=== PATIENT | male | born 1970 | race Caucasian/White ===

== ENCOUNTER 2016-12-17 08:11 | Inpatient (IN) | payer MEDICAID ==
[~2016-12-17] VITALS: Ht 174 cm; Wt 124.1 kg
[~2016-12-17 08:11] MED LIST: ASPIRIN325 MG PO; CARDIZEM60 MG PO; CELEXA20 MG PO; HYDRALAZINE HCL25 MG PO; K-DUR20 MEQ PO; LASIX40 MG PO; LASIX80 MG PO; LISINOPRIL-HCTZ1 T13 PO; LISINOPRIL5 MG PO; MAG-OX 400 MG400 MG PO; METOPROLOL TART50 MG PO; MULTAQ400 MG PO; SLOW-MAG 64 MG64 MG OR; XARELTO15 MG PO
[2016-12-17 08:58] LABS: BASOPHILS 0.4 % (0.0-2.0); EOSINOPHILS 2.2 % (0-7); HEMOGLOBIN 8.9 g/dL (13.5-17.5); IMMATURE GRANULOCYTES 0.1 % (0-5); LYMPHOCYTES 16.9 % (15-50); MCHC 28.7 g/dL (31.0-37.0); MCV 73.1 fL (80.0-100.0); MEAN PLATELET VOLUME 8.2 fL (7.4-10.4); MONOCYTES 10.5 % (2-11); NEUTROPHILS 69.9 % (40-80); PLATELET COUNT 243 10x3/uL (130-400); RBC 4.24 10x6/uL (4.20-6.10); RDW 18.4 % (11.5-14.5); WBC 7.2 10x3/uL (4.8-10.8)
[2016-12-17 09:12] LABS: ALBUMIN 2.6 g/dL (3.4-5.0); ANION GAP 16.2 mmol/L (8-16); BILIRUBIN - TOTAL 0.81 mg/dL (0.2-1.3); CALCIUM 8.5 mg/dL (8.5-10.1); CARBON DIOXIDE 26.2 mmol/L (21.0-32.0); CREATININE - SERUM 2.6 mg/dL (0.6-1.3); POTASSIUM - SERUM 4.4 mmol/L (3.5-5.1); PROTEIN - SERUM 7.3 g/dL (6.4-8.2)
[2016-12-17 09:21] LABS: TROPONIN-I 0.046 ng/mL (0.000-0.060)
[2016-12-17 10:44] LABS: UDS - AMPHET NEGATIVE QUAL (NEGATIVE); UDS - BARB NEGATIVE QUAL (NEGATIVE); UDS - BENZO NEGATIVE QUAL (NEGATIVE); UDS - COCAINE NEGATIVE QUAL (NEGATIVE); UDS - METH NEGATIVE QUAL (NEGATIVE); UDS - OPIATE NEGATIVE QUAL (NEGATIVE); UDS - PCP NEGATIVE QUAL (NEGATIVE); UDS - THC NEGATIVE QUAL (NEGATIVE)
--- NOTE | 2016-12-17 11:40 | NUR ---
RECEIVED PT TO ROOM 2127 VIA STRETCHER TRANSFERED TO BED TOLERATED WELL CARDIZEM GTT PATENT RT ARM AT 5 ML/HR WITHOUT DIFFICULTY F/C PATENTCLEAR RICHIE URINE
[2016-12-17 12:10] VITALS: BP 156/92
[2016-12-17] MEDS ORDERED: LIPITOR80 MG PO (12:45)
[2016-12-17] MEDS ORDERED: METOPROLOL TART50 MG PO (12:46)
[2016-12-17 15:49] VITALS: BP 153/102
[2016-12-17 15:54] VITALS: BP 156/92; BMI 42.0
[2016-12-17 17:45] LABS: CKMB 2.8 U/L (0.0-3.6); CREATINE KINASE 50 UL (21-232); TROPONIN-I 0.048 ng/mL (0.000-0.060)
[2016-12-17 20:00] VITALS: BP 156/85
[2016-12-17 21:17] LABS: CKMB 2.5 U/L (0.0-3.6); CREATINE KINASE 46 UL (21-232); TROPONIN-I 0.045 ng/mL (0.000-0.060)
[2016-12-18] VITALS: BP 131/76
--- NOTE | 2016-12-18 00:03 | NUR ---
IN BED LYING ON LEFT SIDE WITH EYES CLOSED, RESP UNLAB WITH O2 @ 2L VIA NC IN PLACE, TELEMETRY SHOWING HR ATRIAL FIB PER MONITOR. CARDIZEM GTT AT 5CC/HR VIA PUMP TO RT FA WITH NO R/S NOTED AT SITE. MIRANDA CATH INTACT AND PATENT WITH YELLOW URINE NOTED IN BAG, EMPTIED PRN.VOICES NO C/O PAIN OR DISCOMFORT AT THIS TIME. CONTINUE TO MONITOR.
--- NOTE | 2016-12-18 00:08 | NUR ---
SITTING UP ON SIDE OF BED.GOWN, O2 OFF AND IVALMOST PULLED OUT. ASSIST WITH GETTING READY TO GET BACK INTO BED. COCO WELL. HOB UP SR UP X2, C/L IN REACH. CONTINUE TO MONITOR,
[2016-12-18 04:00] VITALS: BP 160/84
[2016-12-18 04:45] LABS: BASOPHILS 0.6 % (0.0-2.0); EOSINOPHILS 2.9 % (0-7); HEMATOCRIT 30.5 % (42.0-54.0); HEMOGLOBIN 8.7 g/dL (13.5-17.5); IMMATURE GRANULOCYTES 0.2 % (0-5); LYMPHOCYTES 18.8 % (15-50); MCHC 28.5 g/dL (31.0-37.0); MCV 73.5 fL (80.0-100.0); MEAN PLATELET VOLUME 8.2 fL (7.4-10.4); MONOCYTES 10.7 % (2-11); NEUTROPHILS 66.8 % (40-80); PLATELET COUNT 246 10x3/uL (130-400); RBC 4.15 10x6/uL (4.20-6.10); RDW 18.5 % (11.5-14.5); WBC 6.6 10x3/uL (4.8-10.8)
[2016-12-18 05:24] LABS: CALC OSMOLALITY 298 mosm/kg (275-300); CALCIUM 8.4 mg/dL (8.5-10.1); CARBON DIOXIDE 29.5 mmol/L (21.0-32.0); CHLORIDE - SERUM 106 mmol/L (98-107); CKMB 1.9 U/L (0.0-3.6); CREATINE KINASE 44 UL (21-232); CREATININE - SERUM 2.7 mg/dL (0.6-1.3); GLUCOSE 154 mg/dL (74-106); MAGNESIUM - SERUM 1.7 mg/dL (1.8-2.4); PHOSPHOROUS 4.8 mg/dL (2.5-4.9); POTASSIUM - SERUM 4.2 mmol/L (3.5-5.1); SODIUM 143 mmol/L (136-145); TROPONIN-I 0.045 ng/mL (0.000-0.060); UREA NITROGEN 43 mg/dL (7-18); eGFR NON AFRICAN AMERICAN 27 mL/min (90-120)
--- NOTE | 2016-12-18 07:30 | NUR ---
RESTING QUIETLY EYES CLOSED RESP UNLABORED NAD NOTED
--- NOTE | 2016-12-18 08:08 | NUR ---
ASSESSMENT COMPLETED. TELEMERTY SHOWS CAF AT 82. O2 AT 3 L/M PER NC. MIRANDA TO BEDSIDE GRAVITY BAG. RIGHT ARM WITH IV OF CARDIZEM AT 5. DENIES ANY NEEDS. CALL LIGHT IN REACH WITH SR UP. WILL MONITOR
[2016-12-18 08:58] VITALS: BP 132/82
[2016-12-18 11:00] VITALS: Ht 174 cm; Wt 124.1 kg
[2016-12-18 13:16] VITALS: BP 143/77
[2016-12-18 17:21] VITALS: BP 148/80
--- NOTE | 2016-12-18 17:58 | NUR ---
LYING QUIETLY WITH EYES CLOSED . RESP REG AND NO LABORED. WILL MONITOR
--- NOTE | 2016-12-18 19:30 | NUR ---
ASSESSMENT COMPLETE, AROUSES EASILY, VOICES NO C/O PAIN OR DISCOMFORT AT THIS TIME.CARDIZEM INFUSING W/O DIFF VIA PUMP @ 10CC/HR TO RT HAND/WRISTIV SITE.RESP UNLAB WITH O2 @ 3L VIA NC IN USE. TELEMETRY IN PLACE, SHOWING HR CAFIB PER MONITOR, MIRANDA INTACT AND PATENT WITH YELLOW URINE NOTED IN BAG. EMPTIED PRN. CONTINUE TO MONITOR.
[2016-12-18 20:00] VITALS: BP 151/93
--- NOTE | 2016-12-19 03:28 | NUR ---
EYES CLOSED, RESP UNLAB WITH NO S/S OF ACUTE DISTRESS NOTED. C/L IN REACH. CONTINUE TO MONITOR.
[2016-12-19 04:00] VITALS: BP 143/77
[2016-12-19 05:55] LABS: BASOPHILS 0.4 % (0.0-2.0); EOSINOPHILS 2.7 % (0-7); HEMATOCRIT 31.5 % (42.0-54.0); HEMOGLOBIN 8.7 g/dL (13.5-17.5); IMMATURE GRANULOCYTES 0.3 % (0-5); LYMPHOCYTES 20.5 % (15-50); MCH 20.3 pg (26.0-34.0); MCHC 27.6 g/dL (31.0-37.0); MCV 73.4 fL (80.0-100.0); MEAN PLATELET VOLUME 8.5 fL (7.4-10.4); MONOCYTES 10.4 % (2-11); NEUTROPHILS 65.7 % (40-80); PLATELET COUNT 239 10x3/uL (130-400); RBC 4.29 10x6/uL (4.20-6.10); RDW 18.3 % (11.5-14.5); WBC 7.5 10x3/uL (4.8-10.8)
[2016-12-19 06:23] LABS: ANION GAP 10.3 mmol/L (8-16); CARBON DIOXIDE 31.5 mmol/L (21.0-32.0); CREATININE - SERUM 2.4 mg/dL (0.6-1.3); MAGNESIUM - SERUM 1.7 mg/dL (1.8-2.4); PHOSPHOROUS 4.8 mg/dL (2.5-4.9); POTASSIUM - SERUM 3.8 mmol/L (3.5-5.1)
--- NOTE | 2016-12-19 06:45 | NUR ---
RECEIVED PT REPORT. NO CO PAIN AT THIS TIME. WILL CONTINUE PLAN OF CARE. NO OTHER NEEDS.
--- NOTE | 2016-12-19 07:48 | NUR ---
PT IS ALERT. ASSESSMENT DONE PER FLOWSHEET. NO OTHER NEEDS AT THIS TIME. WILL CONTINUE TO MONITOR
[2016-12-19 08:00] VITALS: BP 139/78
[2016-12-19 12:00] VITALS: BP 104/67
[2016-12-19 15:59] VITALS: BP 123/81
[2016-12-19 20:27] VITALS: BP 118/68
--- NOTE | 2016-12-19 21:53 | NUR ---
INITIAL ROUNDS COMPLETED AT 1915 HRS. PT DENIED ANY DISCOMFORT. ASSESSMENT COMPLETED AT 1940 HRS. VSS. CAF PER CM HR 71. IV TO RFA WITH CARDIZEM AT 10MG/HR ( 10CC/HR). IV PATENT. O2 3LNC. LUNGS DIMINISHED IN BASES BILAT. LARGE ABD HERNIA NOTED. TRACE PEDAL EDEMA. PM MEDS GIVEN PER ORDERS. PT CURRENTLY RESTING WITH EYES CLOSED. RESP EVEN AND REGULAR. SR UP X2, CALL LIGHT WITHIN REACH. REFUSES SCD'S. MIRANDA DRAINING YELLOW URINE.
--- NOTE | 2016-12-19 23:59 | NUR ---
PT RESTING WITH EYES CLOSED. RESP EVEN AND REGULAR. SR UP X2, CALL LIGHT WITHIN REACH.
[2016-12-20 00:04] VITALS: BP 107/63
--- NOTE | 2016-12-20 01:49 | NUR ---
PT RESTING WITH EYES CLOSED. RESP EVEN AND REGULAR. SR UP X2, CALL LIGHT WITHIN REACH.
--- NOTE | 2016-12-20 04:38 | NUR ---
PT RSETING WITH EYES CLOSED. RESP EVEN AND REGULAR. SR UP X2, CALL LIGHT WITHIN REACH.
[2016-12-20 04:39] VITALS: BP 111/70
--- NOTE | 2016-12-20 06:44 | NUR ---
VSS THROUGHOUT NIGHT. CAF PER CM. PT STATED HE SLEPT WELL DURING THE NIGHT. NEEDS MET;WILL CONTINUE TO MONITOR.
[2016-12-20 07:45] LABS: BASOPHILS 0.2 % (0.0-2.0); EOSINOPHILS 1.6 % (0-7); HEMATOCRIT 28.5 % (42.0-54.0); HEMOGLOBIN 8.2 g/dL (13.5-17.5); IMMATURE GRANULOCYTES 0.2 % (0-5); LYMPHOCYTES 16.3 % (15-50); MCH 20.9 pg (26.0-34.0); MCHC 28.8 g/dL (31.0-37.0); MCV 72.7 fL (80.0-100.0); MEAN PLATELET VOLUME 8.6 fL (7.4-10.4); NEUTROPHILS 70.7 % (40-80); PLATELET COUNT 226 10x3/uL (130-400); RBC 3.92 10x6/uL (4.20-6.10); RDW 18.4 % (11.5-14.5); WBC 8.9 10x3/uL (4.8-10.8)
[2016-12-20 08:00] VITALS: BP 115/74
[2016-12-20 08:19] LABS: ANION GAP 12.1 mmol/L (8-16); CALCIUM 8.1 mg/dL (8.5-10.1); CARBON DIOXIDE 28.7 mmol/L (21.0-32.0); CREATININE - SERUM 2.6 mg/dL (0.6-1.3); MAGNESIUM - SERUM 1.7 mg/dL (1.8-2.4); PHOSPHOROUS 4.9 mg/dL (2.5-4.9); POTASSIUM - SERUM 3.8 mmol/L (3.5-5.1)
[2016-12-20 11:25] VITALS: BP 112/53
--- NOTE | 2016-12-20 14:00 | NUR ---
ALERT AND ORIENTED X4. RESTING IN BED. INITIATE MIRANDA CARE. ORANGE STICKER PLACED ON MIRANDA BAG. READY TO GET MIRANDA OUT. PLAN TO TALK TO DOCTOR TOMORROW FOR MIRANDA DC. DENIES SOB OR PAIN. CONTINUE PLAN OF CARE AND SAFETY PRECAUTIONS. CONTROLLED AFIB 64bpm ON TELEMETRY.
--- NOTE | 2016-12-20 15:47 | NUR ---
ALERT AND ORIENTED X4. RESTING IN BED. BP-102/68. HR-60 CONTROLLED A-FIB ON TELEMETRY. 18 BEAT RUN OF V-TACH. ASYMPTOMATIC. NOTIFY . CARDIZEM PO 240mg DAILY ORDERED. GIVE ONE DOSE NOW PER AND 2HRS STOP CARDIZEM DRIP PER ORDER VIA TELEPHONE. CONTINUE PLAN OF CARE. BED LOCKED AND LOW. CALL LIGHT IN REACH. TWO SIDERAILS UP.
[2016-12-20 15:50] VITALS: BP 99/68
--- NOTE | 2016-12-20 18:00 | NUR ---
ALERT AND ORIENTED X4. RESTING IN BED. COMPLAINS OF LEG PAIN 12/14. CONTROLLED AFIB 62bpm ON TELEMETRY. CARDIZEM DRIP STOPPED PER ORDER. DENIES SOB. CONTINUE PLAN OF CARE AND SAFETY PRECAUTIONS.
--- NOTE | 2016-12-20 20:14 | NUR ---
INITIAL ROUNDS COMPLETED AT 1920 HRS. PT RESTING WITH EYES CLOSED. RESP EVEN AND REGULAR. ASSESSMENT COMPLETED AT 2000 HRS. VSS. ACF PER CM HR 59. LARGE ABD HERNIA NOTED. IV TO RFA SL. O2 3LNC. LUNGS DIMINISHED IN BASES BILAT. GUAMAN. MIRANDA DRAINING YELLOW URINE. 1/2CM SORE NOTED TO BACK OF NECK. WILL CONTINUE TO MONITOR. SR UP X2, CALL LIGHT WITHIN REACH.
[2016-12-20 20:48] VITALS: BP 148/67
--- NOTE | 2016-12-20 22:05 | NUR ---
PT SITTING UP IN RECLINER. PM MEDS GIVEN. MIRANDA CARE DONE. WILL CONTINUE TO MONITOR. SR UP X2, CALL LIGHT WITHIN REACH.
--- NOTE | 2016-12-21 00:08 | NUR ---
PT RESTING WITH EYES CLOSED. RESP EVEN AND REGULAR. SR UP X2, CALL LIGHT WITHIN REACH.
[2016-12-21 00:30] VITALS: BP 101/57
--- NOTE | 2016-12-21 03:14 | NUR ---
PT RESTING WITH EYES CLOSED. RESP EVEN AND REGULAR. SR UP X2, CALL LIGHT WITHIN REACH.
[2016-12-21 04:30] VITALS: BP 137/88
--- NOTE | 2016-12-21 04:48 | NUR ---
PT RESTING WITH EYES CLOSED. RESP EVEN AND REGLAR. SR UP X2, CALL LIGHT WITHIN REACH.
[2016-12-21 06:33] LABS: BASOPHILS 0.5 % (0.0-2.0); EOSINOPHILS 1.5 % (0-7); HEMATOCRIT 28.6 % (42.0-54.0); HEMOGLOBIN 8.3 g/dL (13.5-17.5); IMMATURE GRANULOCYTES 0.1 % (0-5); LYMPHOCYTES 22.1 % (15-50); MCH 21.1 pg (26.0-34.0); MCV 72.8 fL (80.0-100.0); MEAN PLATELET VOLUME 8.6 fL (7.4-10.4); MONOCYTES 8.6 % (2-11); NEUTROPHILS 67.2 % (40-80); PLATELET COUNT 202 10x3/uL (130-400); RBC 3.93 10x6/uL (4.20-6.10); RDW 18.4 % (11.5-14.5); WBC 8.5 10x3/uL (4.8-10.8)
--- NOTE | 2016-12-21 06:44 | NUR ---
VSS THROUGHOUT NIGHT. CAF PER CM. PT DENIED ANY DISCOMFORT. NEEDS MET; WILL CONTINUE TO MONITOR.
[2016-12-21 06:48] LABS: ANION GAP 11.3 mmol/L (8-16); CALCIUM 8.3 mg/dL (8.5-10.1); CARBON DIOXIDE 29.9 mmol/L (21.0-32.0); MAGNESIUM - SERUM 1.9 mg/dL (1.8-2.4); PHOSPHOROUS 5.6 mg/dL (2.5-4.9); POTASSIUM - SERUM 4.2 mmol/L (3.5-5.1)
[2016-12-21 08:00] VITALS: BP 134/95
--- NOTE | 2016-12-21 10:44 | NUR ---
ALERT AND ORIENTED X4. SITTING UP ON SIDE OF BED. COMPLAINS OF WEAKNESS. SCARED TO GO TO SLEEP DUE TO FEELING SO WEAK. CONSERVATION ENFORCEMENT OFFICER STUDENT DC RUTH PER . BULB DEFLATED 9ml. BULB INTACT. 45bpm CONTROLLED A-FIB ON TELEMETRY. BP-95/48. NOTIFY DR.ST EDGE. CARDIZEM 240mg PO CHANGED TO 120mg PO DAILY PER DR.ST EDGE VIA TELEPHONE. ENCOURAGE DEEP BREATHING. CONTINUE TO MONITOR. BED LOCKED AND LOW. CALL LIGHT IN REACH. TWO SIDERAILS UP. REFUSE SCDs.
[2016-12-21 12:00] VITALS: BP 96/61
--- NOTE | 2016-12-21 12:40 | CN ---
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 He has been somewhat intermittently compliant with diet and activity level. We are asked to see him concerning his cardiovascular status. PAST MEDICAL HISTORY: Includes: 1. Hypertension. 2. Atrial fibrillation. 3. Cardiomyopathy with embolic PA. 4. Chronic renal insufficiency. 5. Chronic anemia. 6. Dyslipidemia. MEDICATIONS: Atorvastatin 80 mg p.o. daily, hydralazine 25 t.i.d., metoprolol 50 b.i.d., aspirin 81 daily, Lasix 40 b.i.d. SOCIAL HISTORY: Lives here in [place], nonsmoker, has some difficulty with his ADLs. REVIEW OF SYSTEMS: The patient reports easy bruising but reports no swollen glands. The patient reports no fever, no night sweats, no significant weight gain, no significant weight loss. No significant exercise tolerance. The patient reports no dry eyes, no irritation, no vision change. Patient reports no difficulty hearing and no ear pain. Patient reports no frequent nose bleeds or nose and sinus problems. Patient reports on arm pain on exertion. No shortness of breath while lying down. No history of heart murmur. Patient reports no cough, no wheezing or coughing up blood. Patient reports no abdominal pain, no vomiting. Normal appetite. No diarrhea and not vomiting blood. No nausea and no constipation. Patient reports no incontinence. No difficulty urinating. No hematuria. No increased frequency. Patient reports no muscle aches. No weakness, no arthralgias, no back pain. No swelling of the extremities. Patient reports no abnormal mole, no jaundice, no rashes. Reports no loss of consciousness. No weakness and no numbness. No seizures, dizziness, or headaches. The patient reports no depression, no sleep disturbance, feeling safe in a relationship and no alcohol abuse. Patient reports on fatigue. Reports no runny nose or sinus pressure. No itching, no hives, and no frequent sneezing. PHYSICAL EXAMINATION: GENERAL: Pleasant gentleman in no acute distress, appears stated age. VITAL SIGNS: Blood pressure 123/81, pulse 64 and regular. HEENT: Normocephalic, atraumatic. NECK: No bruits noted. HEART: Regular. LUNGS: Palomino diminished breath sounds bilateral. CONSULT REPORT [id number] KATYAAYLIN Starkey ABDOMEN: Soft, nontender. EXTREMITIES: 1+ edema, 1+ pulses. IMPRESSION: Exacerbation of nonischemic cardiomyopathy, [id number]-nu-[id number] systolic dysfunction. Unable to use HOLGER, ARB and Aldactone secondary to renal insufficiency, potassium 3.8. Could consider low-dose Aldactone at some point, although this would be when he is more stable. Further recommendations will be based on the above. TRANSINT:[id number] Voice Confirmation ID: [id number] DOCUMENT ID: [id number] GORAN HARRY MD at 1240 CC: [id number] DICTATION DATE: 12/19/16 1615 ASSOCIATION EXECUTIVE: 12/19/161955 ADM IN [facility] [address] [place] [address]
--- NOTE | 2016-12-21 17:31 | NUR ---
ALERT AND ORIENTED X4. OOB TO RESTROOM. BM IN FLOOR. ROOM AND LINEN CHANGED. SHOWER COMPLETE. CONTROLLED A-FIB 58bpm ON TELEMETRY. [place]. O2 @ 3L NC. DENIES PAIN. CONTINUE PLAN OF CARE AND SAFETY PRECAUTIONS.
--- NOTE | 2016-12-21 19:30 | NUR ---
UP AMBULATING IN HALLWAY, NO S/S OF ACUTE DISTRESS NOTED. NO O2 BEING USED. HR CAFIB PER MONITOR. CONTINUE TO MONITOR.
--- NOTE | 2016-12-21 20:00 | NUR ---
BACK IN BED , COCO WELL. HOB UP SR UP X2, C/L IN REACH. VOICES NO C/O PAIN AT THIS TIME. CONTINUE TO MONITOR.
--- NOTE | 2016-12-22 01:48 | NUR ---
EYES CLOSED. RESP EVEN AND UNLAB WITH NO S/S OF ACUTE DISTRESS NOTED. C/L IN REACH.
[2016-12-22 02:33] VITALS: BP 110/65
[2016-12-22 03:09] LABS: PROTEIN S - FREE 114 % (57-157); PROTEIN S - FUNCTIONAL 60 % (63-140); PROTEIN S - TOTAL 112 % (60-150)
[2016-12-22 06:06] LABS: BASOPHILS 0.4 % (0.0-2.0); EOSINOPHILS 2.1 % (0-7); HEMATOCRIT 26.8 % (42.0-54.0); IMMATURE GRANULOCYTES 0.1 % (0-5); LYMPHOCYTES 17.4 % (15-50); MCH 21.3 pg (26.0-34.0); MCHC 29.9 g/dL (31.0-37.0); MCV 71.5 fL (80.0-100.0); MONOCYTES 11.1 % (2-11); NEUTROPHILS 68.9 % (40-80); PLATELET COUNT 192 10x3/uL (130-400); RBC 3.75 10x6/uL (4.20-6.10); RDW 18.3 % (11.5-14.5)
[2016-12-22 06:37] VITALS: BP 123/69
[2016-12-22 06:46] LABS: ANION GAP 11.4 mmol/L (8-16); CALCIUM 8.2 mg/dL (8.5-10.1); CARBON DIOXIDE 29.5 mmol/L (21.0-32.0); PHOSPHOROUS 5.9 mg/dL (2.5-4.9); POTASSIUM - SERUM 3.9 mmol/L (3.5-5.1)
[2016-12-22 08:14] VITALS: BP 117/78
[2016-12-22 11:39] VITALS: BP 136/49
[2016-12-22 14:19] LABS: PROTEIN C - ANTIGEN 61 % (60-150); PROTEIN C - FUNCTIONAL 81 % (73-180)
[2016-12-22] MEDS ORDERED: CARDIZEM60 MG PO (14:30)
[2016-12-22] MEDS ORDERED: [UNRECOGNIZED DRUG - SUPPLY] (14:34)
--- NOTE | 2016-12-22 15:11 | NUR ---
ALERT AND ORIENTED X4. UP AMBULATING IN [place]. DENIES PAIN OR SOB. CONTROLLED AFIB 56bpm ON TELEMETRY. DENIES ANY NEEDS. CONTINUE PLAN OF CARE AND SAFETY PRECAUTIONS.
[2016-12-22 15:52] VITALS: BP 108/77
--- NOTE | 2016-12-22 17:27 | NUR ---
ALERT AND ORIENTED X4. WRITTEN PRESCRIPTIONS PROVIDED. PRESCRIPTIONS FOR BLOOD PRESSURE MACHINE PROVIDED. DC RT FA IV TIP INTACT. CALL ROOMMATE FOR RIDE. DISCHARGE INSTRUCTIONS GIVEN VERBALLY AND WRITTEN. DISCHARGE PAPERS SIGNED ON CHART. ESCORT TO RIDE VIA WHEELCHAIR.
--- NOTE | 2016-12-22 19:22 | NUR ---
Patient Name: AYLIN ALDANA Admission Status: ER Accout number: [id number] Admission Date: 12-17-2016 : 1970 Admission Diagnosis:ACUTE ON CHRONIC DIASTOLIC (CONGESTIVE) HEART FAILURE Attending: ROBE Current LOS: 5 Anticipated DC Date: 12-22-2016 Planned Disposition: Home Primary Insurance: MEDICAID [place] LATE ENTRY: Discharge Planning Comments: * Is the patient Alert and Oriented? Yes 0 * How many steps to enter\exit or inside your home? 5 0 * PCP DR. MICHELLE 0 * Pharmacy [facility] [address] 0 * Preadmission Environment Home with Family 0 * ADLs Independent 0 * Equipment Cane 0 * Other Equipment NO MEDICAL EQUIPMENT PROVIDER PREFERENCE 0 * List name and contact numbers for known caregivers / representatives who currently or will assist patient after discharge: FILIPPO GOMESYENY, FRIEND, 0 * Community resources currently utilized None 0 * Please name any agencies selected above. NONE 0 * Additional services required to return to the preadmission environment? No 0 * Can the patient safely return to the preadmission environment? Yes 0 * Has this patient been hospitalized within the prior 30 days at any hospital? No 0 CM MET WITH PT IN ROOM TO DISCUSS DISCHARGE PLANNING AND NEEDS. PT REPORTS LIVING AT HOME INDEPENDENTLY WITH A ROOMMATE. PT HAS A CANE WITH NO MEDICAL EQUIPMENT PROVIDER PREFERENCE. PT HAS NO OUTSIDE SERVICES ASSISTING IN THE HOME. CM DISCUSSED AVAILABILITY OF HOME HEALTH, REHAB SERVICES AND MEDICAL EQUIPMENT. PT DENIES DISCHARGE NEEDS, REPORTS HIS FRIEND WILL PICK HIM UP FOR DISCHARGE HOME. PT REPORTS NOT HAVING A BLOOD PRESSURE CUFF AT HOME TO CHECK HIS BLOOD PRESSURE AND ASKED HOW TO GET ONE. CM ADVISED THAT THEY ARE GENERALLY NOT COVERED BY INSURANCE AND THAT HE WOULD HAVE TO PAY CHEN. CM ADVISED TO SHOP AROUND RETAIL OUTLETS FOR THE [address]. CM REFERRED PT TO [facility] FOR POSSIBLE ASSISTANCE IF NEEDED AND DISCUSSED HOW PT MAY EXPLORE HIS PERSONAL SUPPORT SYSTEM TO REQUEST HELP OR LOAN ASSISTANCE UNTIL HE GETS PAID ON THE FIRST. PT DENIES DISCHARGE NEEDS. Oil Processing Technician: Cortes Pierson
== END 2016-12-22 17:30 | disposition home or self-care (01) | DRG 291 ==
LOC: D.ER 08:11 → D.M2 11:13
PROVIDERS: Emergency Medicine; Internal Medicine; ADMIT Emergency Medicine
DX: I13.0 Hypertensive heart and chronic kidney disease with heart failure and stage 1 through stage 4 chronic kidney disease, or unspecified chronic kidney disease (principal); I50.33 Acute on chronic diastolic (congestive) heart failure; N17.9 Acute kidney failure, unspecified; N18.3 Chronic kidney disease, stage 3 (moderate); D63.8 Anemia in other chronic diseases classified elsewhere; I48.91 Unspecified atrial fibrillation; Z91.14 Patient's other noncompliance with medication regimen; E78.5 Hyperlipidemia, unspecified; I42.9 Cardiomyopathy, unspecified; I07.1 Rheumatic tricuspid insufficiency; I27.2 Other secondary pulmonary hypertension; I25.2 Old myocardial infarction

== ENCOUNTER 2017-02-02 12:46 | Inpatient (IN) | payer MEDICAID ==
[~2017-02-02] VITALS: Ht 172.7 cm; Wt 125.5 kg
--- NOTE | ~2017-02-02 | EC ---
PATIENT:AYLIN ALDANA DATE OF SERVICE: 02/02/17 SEX: M MEDICAL RECORD: [id number] DATE OF : [birth year] LOCATION:D.M2 D.211 AGE OF PATIENT: 46 ADMISSION DATE: 02/02/17 REFERRING PHYSICIAN: INTERPRETING PHYSICIAN: CHAZ BOYD MD ECHOCARDIOGRAM REPORT ECHO CHARGES 4 ECHO COMPLETE CLINICAL DIAGNOSIS: CHF/PULMONARY HTN ECHOCARDIOGRAPHIC MEASUREMENTS (adult normal given) AC root (d.<3.7cm) 3.2 LV Septum d (<1.2 cm> 2.3 Valve Excursion 1.9 LV Septum (systole) 3.2 Left Atria (s.<4.0cm> 6.4 LVPW d(<1.2cm) 2.2 RV (d.<2.3cm) 3.8 LVPW (sytole) 2.8 LV diastole(<5.6CM) 4.3 MV E-F(>70mm/sec) LV systole 1.9 LVOT Diameter 2.3 MV exc.(>10mm) Est.ejection fraction (50-75%) Pericardial Effusion N DOPPLER: LVIT A E 137 LA RVSP 29.2 LVOT 108 AOP1/2T Asc. Ao 159 RVOT 73.0 RA PA 88.0 AV Gradient Peak 10.2 AV Mean 6.5 AV Area 2.6 MV Gradient Peak 9.1 MV Mean 3.0 MV Area COMMENTS: Movie Critic: Eliane VALENZUELAOE Fur Scraper:1 Dr. Boyd TAPE# PACS DATE OF SERVICE: 02/05/2017 Echocardiogram FINDINGS: 1. Left ventricular chamber size is within normal limits. Left ventricular systolic function is normal. Overall ejection fraction estimated at 50%. 2. Left atrium is enlarged at greater than 6 cm, right atrium and right ventricular chamber sizes are as well moderately dilated. 3. Valvular structures have normal structure and motion. ECHOCARDIOGRAM REPORT [id number] AYLIN ALDANA 4. Doppler interrogation reveals moderate tricuspid regurgitation, no other valvular insufficiency or stenosis. Pulmonary systolic pressure is normal estimated at 29 mmHg. 5. No evidence of pericardial effusion or left ventricular thrombus. TRANSINT:[id number] Voice Confirmation ID: [id number] DOCUMENT ID: [id number] CHAZ BOYD MD CC: [id number] DICTATION DATE: 02/05/17 1505 MAKE UP MAN: 02/05/17 2328 ADM IN [facility] [address] [place] [address]
[~2017-02-02 12:46] MED LIST changes: +LIPITOR80 MG PO; +[UNRECOGNIZED DRUG - SUPPLY]
[2017-02-02 13:41] LABS: BASOPHILS 0.8 % (0-2); EOSINOPHILS 2.8 % (0-7); HEMATOCRIT 31.6 % (42.0-54.0); HEMOGLOBIN 9.1 g/dL (13.5-17.5); IMMATURE GRANULOCYTES 0.3 % (0-5); MCH 22.1 pg (26.0-34.0); MCHC 28.8 g/dL (31.0-37.0); MCV 76.9 fL (80.0-100.0); MEAN PLATELET VOLUME 8.6 fL (7.4-10.4); MONOCYTES 9.1 % (2-11); RBC 4.11 10x6/uL (4.20-6.10); RDW 21.4 % (11.5-14.5); WBC 6.4 10x3/uL (4.8-10.8)
[2017-02-02 13:56] LABS: PLATELET COUNT 275 10x3/uL (130-400)
[2017-02-02 13:58] LABS: ALBUMIN 2.4 g/dL (3.4-5.0); ANION GAP 10.5 mmol/L (8-16); BILIRUBIN - TOTAL 0.44 mg/dL (0.2-1.3); CALCIUM 8.5 mg/dL (8.5-10.1); CARBON DIOXIDE 28.9 mmol/L (21.0-32.0); CREATININE - SERUM 2.3 mg/dL (0.6-1.3); POTASSIUM - SERUM 4.4 mmol/L (3.5-5.1); PROTEIN - SERUM 6.9 g/dL (6.4-8.2)
[2017-02-02 14:02] LABS: MAGNESIUM - SERUM 2.1 mg/dL (1.8-2.4); TROPONIN-I 0.036 ng/mL (0.000-0.060)
--- NOTE | 2017-02-02 18:10 | NUR ---
ARRIVE TO ROOM VIA WHEELCHAIR FROM ER. ALERT AND ORIENTED X4. AMBULATES FROM WHEELCHAIR TO BED WITHOUT ASSISTANCE. COMPLAINS OF SOB. O2 SAT 80% RA. INITIATE OXYGEN THERAPY @ 2L NC. O2 SAT IMPROVES TO 96%. POOR HYGIENE. SMELLS LIKE FECES. PATIENT REPORTS BEING TO WEAK TO GO TO RESTROOM AND CLEAN UP AFTER DOGS. CONTROLLED A-FIB 97bpm ON TELEMETRY. IV LT HAND SL. REFUSE SCDs. CONTINUE PLAN OF CARE. QUICK START COMPLETE AND ADULT HISTORY.
[2017-02-02] MEDS ORDERED: FLUTICASONE PRO16 GM NASAL (18:15)
[2017-02-02 18:30] VITALS: BP 166/113; BMI 38.1
--- NOTE | 2017-02-02 19:00 | NUR ---
INITIAL ROUNDS MADE. PT SITTING UP IN BED RESTING WELL WITH EYES CLOSED, AWAKENED EASILY WHEN NAME CALLED. DENIES NEEDS OR C/O AT THIS TIME. WILL CONT TO MONITOR.
[2017-02-02 21:21] VITALS: BP 156/109
--- NOTE | 2017-02-03 00:08 | NUR ---
SITTING UP ON SIDE OF BED EATING POPCICLE. NO NEEDS OR C/O VOICED. CONT TO MONITOR.
[2017-02-03 01:26] VITALS: BP 148/105
--- NOTE | 2017-02-03 03:59 | NUR ---
CROP NUTRITION SCIENTIST AT BEDSIDE FOR VS. NEEDS ADDRESSED AT THIS TIME. CALL LIGHT IN REACH. WILL CONT TO MONITOR.
[2017-02-03 04:59] VITALS: BP 123/83
[2017-02-03 08:00] VITALS: BP 146/83
[2017-02-03 08:08] LABS: % SATURATION 4 % (15-55); IRON 16 ug/dl (35-150); TOTAL IRON BIND CAPACITY 380 ug/dl (260-445); UNSAT IRON BIND CAPACITY 364 ug/dl (150-375)
--- NOTE | 2017-02-03 10:19 | CN ---
PATIENT NAME:AYLIN ALDANA MEDICAL RECORD: [id number] : 66 LOCATION:[facility] D.2115 ADMIT DATE: 02/02/17 ACCOUNT: [id number] CONSULTING PHYSICIAN: GORAN HARRY MD REFERRING PHYSICIAN: RICHELLE OWEN DO DATE OF CONSULTATION: 02/03/2017 HISTORY OF PRESENT ILLNESS: A 46-year-old gentleman with a history of atrial fibrillation with embolic event to the coronary. He has a nonischemic cardiomyopathy, EF 30-35%. Compliance has been an issue in the past. He has history of atrial fibrillation, chronic renal disease, probably anemia of chronic renal disease. We are asked to see him concerning his cardiovascular status. PAST MEDICAL HISTORY: Includes: 1. History of hypertension. 2. Atrial fibrillation. 3. Chronic renal insufficiency. 4. Cardiomyopathy. SOCIAL HISTORY: He is a nonsmoker, occasional marijuana user. He is able to take care of his all ADLs. MEDICATIONS: Listed medications include Lipitor 80 mg p.o. every day, diltiazem 120 mg every day, hydralazine 25 mg b.i.d., metoprolol 50 mg b.i.d., aspirin 81 mg every day, Lasix 40 mg every day. REVIEW OF SYSTEMS: The patient reports easy bruising but reports no swollen glands. The patient reports no fever, no night sweats, no significant weight gain, no significant weight loss. No significant exercise tolerance. The patient reports no dry eyes, no irritation, no vision change. Patient reports no difficulty hearing and no ear pain. Patient reports no frequent nose bleeds or nose and sinus problems. Patient reports on arm pain on exertion. No shortness of breath while lying down. No history of heart murmur. Patient reports no cough, no wheezing or coughing up blood. Patient reports no abdominal pain, no vomiting. Normal appetite. No diarrhea and not vomiting blood. No nausea and no constipation. Patient reports no incontinence. No difficulty urinating. No hematuria. No increased frequency. Patient reports no muscle aches. No weakness, no arthralgias, no back pain. No swelling of the extremities. Patient reports no abnormal mole, no jaundice, no rashes. Reports no loss of consciousness. No weakness and no numbness. No seizures, dizziness, or headaches. The patient reports no depression, no sleep disturbance, feeling safe in a relationship and no alcohol abuse. Patient reports on fatigue. Reports no runny nose or sinus pressure. No itching, no hives, and no frequent sneezing. ALLERGIES: None known. PHYSICAL EXAMINATION: GENERAL: An unkempt gentleman, in no acute distress. VITAL SIGNS: Blood pressure 146/83, pulse 92, irregular. HEENT: Normocephalic, atraumatic. NECK: No JVD or bruit. HEART: Irregular, rates around 90. LUNGS: Fair air excursion. CONSULT REPORT [id number] KATYAAYLIN Lalito ABDOMEN: Soft, nontender. EXTREMITIES: Pulses 2+. There is no edema. DIAGNOSTIC DATA: ECG shows atrial fibrillation without acute changes. IMPRESSION: Volume overload, suspect he is noncompliant with medications. I agree patient would benefit from anticoagulation. Suspect this was stopped secondary to noncompliance. Might benefit from mental health social worker consult to help for medications. Further recommendations based on above. TRANSINT:[id number] Voice Confirmation ID: [id number] DOCUMENT ID: [id number] GORAN HARRY MD at 1019 CC: [id number] DICTATION DATE: 02/03/17823 INFECTION PREVENTION COORDINATOR: 02/03/17 0911 ADM IN [facility] [address] [place] [address]
--- NOTE | 2017-02-03 10:34 | NUR ---
TELEMETRY CAF. HR 95. RESP UL ON 02 2L NC. RESTS WITH EYES CLOSED. CALL LIGHT IN REACH. WILL CONT. PLAN OF CARE.
[2017-02-03 12:03] VITALS: BP 86/50
[2017-02-03 12:45] VITALS: Ht 172.7 cm; Wt 125.5 kg
[2017-02-03 16:00] VITALS: BP 109/55
--- NOTE | 2017-02-03 16:25 | NUR ---
UP AMBULATING HALLWAY. GAIT STEADY.
[2017-02-03 19:00] VITALS: BP 115/63
--- NOTE | 2017-02-03 19:10 | NUR ---
RESUMED CARE OF PT, LYING IN BED WITH EYES CLOSED RESPIRATIONS EVEN AND UNLABORED ON 2LPM VIA NC. 82 CAF ON TELEMETRY. LEFT HAND SALINE LOCKED. CALL LIGHT IN REACH. WILL CONTINUE TO MONITOR. SEE NURSE ASSESSMENT.
[2017-02-04] VITALS: BP 107/71
--- NOTE | 2017-02-04 00:05 | NUR ---
BED BATH AND LINENS CHANGED. REQUESTS PAIN MEDICATION FOR KNEE PAIN.
--- NOTE | 2017-02-04 00:59 | NUR ---
NORCO 10 GIVEN FOR KNEE PAIN 6:10. WILL CONTINUE TO MONITOR.
--- NOTE | 2017-02-04 03:37 | NUR ---
WAREHOUSEMAN AT BEDSIDE TO OBTAIN VITALS, WILL CONTINUE WITH PLAN OF CARE.
[2017-02-04 04:00] VITALS: BP 84/47
[2017-02-04 04:35] LABS: BASOPHILS 0.3 % (0-2); EOSINOPHILS 3.2 % (0-7); HEMATOCRIT 30.1 % (42.0-54.0); HEMOGLOBIN 8.6 g/dL (13.5-17.5); IMMATURE GRANULOCYTES 0.2 % (0-5); LYMPHOCYTES 23.6 % (15-50); MCH 22.1 pg (26.0-34.0); MCHC 28.6 g/dL (31.0-37.0); MCV 77.4 fL (80.0-100.0); MEAN PLATELET VOLUME 8.4 fL (7.4-10.4); MONOCYTES 11.9 % (2-11); NEUTROPHILS 60.8 % (40-80); PLATELET COUNT 297 10x3/uL (130-400); RBC 3.89 10x6/uL (4.20-6.10); RDW 20.9 % (11.5-14.5); WBC 6.6 10x3/uL (4.8-10.8)
[2017-02-04 04:50] LABS: ALBUMIN 2.3 g/dL (3.4-5.0); ANION GAP 7.9 mmol/L (8-16); BILIRUBIN - TOTAL 0.45 mg/dL (0.2-1.3); CALCIUM 8.3 mg/dL (8.5-10.1); CARBON DIOXIDE 30.7 mmol/L (21.0-32.0); CREATININE - SERUM 2.6 mg/dL (0.6-1.3); MAGNESIUM - SERUM 1.8 mg/dL (1.8-2.4); PHOSPHOROUS 5.4 mg/dL (2.5-4.9); POTASSIUM - SERUM 4.6 mmol/L (3.5-5.1); PROTEIN - SERUM 6.3 g/dL (6.4-8.2)
--- NOTE | 2017-02-04 06:31 | NUR ---
NO CHANGES FROM PREVIOUS ASSESSMENT, CALL LIGHT IN REACH.
[2017-02-04 08:21] LABS: FOLATE (FOLIC ACID) - SERUM 8.3 ng/mL (>3.0)
[2017-02-04 08:22] VITALS: BP 128/81
[2017-02-04 12:26] VITALS: BP 111/60
[2017-02-04 16:30] VITALS: BP 88/43
--- NOTE | 2017-02-04 17:20 | NUR ---
Patient Name: AYLIN ALDANA Admission Status: ER Accout number: [id number] Admission Date: 02-02-2017 : 1970 Admission Diagnosis:HEART FAILURE, UNSPECIFIED Attending: TABBY Current LOS: 2 Anticipated DC Date: Planned Disposition: Home Primary Insurance: MEDICAID [place] Discharge Planning Comments: * Is the patient Alert and Oriented? Yes 0 * How many steps to enter\exit or inside your home? 5 0 * PCP DR. MICHELLE 0 * Pharmacy [facility] [address] 0 * Preadmission Environment Home with Family 0 * ADLs Independent 0 * Equipment Cane 0 * Other Equipment [facility] PATIENT - MEDICAL EQUIPMENT PROVIDER 0 * List name and contact numbers for known caregivers / representatives who currently or will assist patient after discharge: FILIPPO BRANDON, FRIEND, 0 * Community resources currently utilized None 0 * Please name any agencies selected above. NONE 0 * Additional services required to return to the preadmission environment? No 0 * Can the patient safely return to the preadmission environment? Yes 0 * Has this patient been hospitalized within the prior 30 days at any hospital? No 0 CM MET WITH PT IN ROOM TO DISCUSS DISCHARGE PLANNING AND NEEDS. PT REPORTS LIVING AT HOME INDEPENDENTLY WITH ADULT ROOMMATE. PT HAS A CANE AND CPAP THAT WILL BE DELIVERED FROM [facility]. PT HAS NO OUTSIDE SERVICES ASSISTING IN THE HOME. CM DISCUSSED AVAILABILITY OF HOME HEALTH, REHAB SERVICES AND MEDICAL EQUIPMENT. PT DENIES DISCHARGE NEEDS, REPORTS A FRIEND WILL PICK HER UP FOR DISCHARGE HOME. PT ASKED FOR MEDICAID TRANSPORT NUMBER, CM PROVIDED IT AND ALSO PROVIDED APPLICATION FOR INTERCITY TRANSIT BUS SERVICES, EXPLAINED THAT HIS PRIMARY DOCTOR WOULD NEED TO SIGN INTERCITY TRANSIT APPLICATION PRIOR TO PT SUBMISSION AT THE [facility]. PT PLANS TO DISCHARGE HOME WITH ROOMMATE, DENIES NEEDS. CM TO FOLLOW AND ASSIST IF NEEDED. Performance Test Architect: Cortes Pierson
[2017-02-04 19:00] VITALS: BP 127/67
--- NOTE | 2017-02-04 19:00 | NUR ---
RECEIVED REPORT AND ASSUMED PT CARE FROM DAY SHIFT NURSE @ THIS TIME.
[2017-02-05] VITALS: BP 72/36
--- NOTE | 2017-02-05 03:48 | NUR ---
PT RESTING WELL WITHOUT C/O OR DISTRESS NOTED. NO NEEDS VOICED. CALL LIGHT WITHIN REACH. WILL MONITOR.
[2017-02-05 04:00] VITALS: BP 108/72
[2017-02-05 04:45] LABS: BASOPHILS 0.8 % (0-2); HEMATOCRIT 30.2 % (42.0-54.0); HEMOGLOBIN 8.6 g/dL (13.5-17.5); IMMATURE GRANULOCYTES 0.2 % (0-5); LYMPHOCYTES 21.4 % (15-50); MCHC 28.5 g/dL (31.0-37.0); MCV 77.2 fL (80.0-100.0); MEAN PLATELET VOLUME 8.3 fL (7.4-10.4); MONOCYTES 10.9 % (2-11); NEUTROPHILS 64.7 % (40-80); PLATELET COUNT 269 10x3/uL (130-400); RBC 3.91 10x6/uL (4.20-6.10); WBC 6.1 10x3/uL (4.8-10.8)
[2017-02-05 05:01] LABS: ALBUMIN 2.4 g/dL (3.4-5.0); ANION GAP 10.2 mmol/L (8-16); BILIRUBIN - TOTAL 0.4 mg/dL (0.2-1.3); CALCIUM 8.3 mg/dL (8.5-10.1); CARBON DIOXIDE 28.5 mmol/L (21.0-32.0); CREATININE - SERUM 2.9 mg/dL (0.6-1.3); MAGNESIUM - SERUM 1.9 mg/dL (1.8-2.4); PHOSPHOROUS 6.4 mg/dL (2.5-4.9); POTASSIUM - SERUM 4.7 mmol/L (3.5-5.1); PROTEIN - SERUM 6.4 g/dL (6.4-8.2)
--- NOTE | 2017-02-05 06:42 | NUR ---
PT RESTED WELL THIS SHIFT. NO NEEDS VOICED. WILL CONT TO MONITOR.
[2017-02-05 07:56] VITALS: BP 108/62
--- NOTE | 2017-02-05 11:17 | NUR ---
PHYSICIAN CONCERN ABOUT INCONSISTENT WEIGHTS. DR. VARGAS ORDERED PATIENT TO BE WEIGHED ON STANDING SCALE. PT WEIGHED AT THIS TIME ON STANDING SCALE LABELED MED 2 #1. WEIGHT IS 274.4
--- NOTE | 2017-02-05 11:47 | NUR ---
STATES HE IS IN PAIN AND IS HAVING A PANIC ATTACK. NORCO GIVEN FOR IZAGUIRRE AND KNEE PAIN. 02 SATS 94% RA BUT B/P 88/49. HR 53. O2 2L NC APPLIED FOR COMFORT. WILL MONITOR.
[2017-02-05 12:44] VITALS: BP 107/56
[2017-02-05 16:43] VITALS: BP 104/54
[2017-02-05 19:00] VITALS: BP 132/79
[2017-02-06 00:08] VITALS: BP 113/61
--- NOTE | 2017-02-06 02:22 | NUR ---
PT RESTING WELL WITHOUT C/O OR DISTRESS NOTED. NO NEEDS VOICED. CALL LIGHTS WITHIN REACH. WILL CONT TO MONITOR.
[2017-02-06 03:56] LABS: BASOPHILS 0.7 % (0-2); EOSINOPHILS 1.8 % (0-7); HEMATOCRIT 28.2 % (42.0-54.0); HEMOGLOBIN 8.6 g/dL (13.5-17.5); IMMATURE GRANULOCYTES 0.2 % (0-5); LYMPHOCYTES 24.3 % (15-50); MCH 22.9 pg (26.0-34.0); MCHC 30.5 g/dL (31.0-37.0); MEAN PLATELET VOLUME 8.8 fL (7.4-10.4); MONOCYTES 12.1 % (2-11); NEUTROPHILS 60.9 % (40-80); PLATELET COUNT 249 10x3/uL (130-400); RBC 3.75 10x6/uL (4.20-6.10); RDW 20.9 % (11.5-14.5); WBC 5.6 10x3/uL (4.8-10.8)
[2017-02-06 03:57] LABS: MCV 75.2 fL (80.0-100.0)
[2017-02-06 04:00] VITALS: BP 129/79
[2017-02-06 04:12] LABS: ANION GAP 11.6 mmol/L (8-16); CALCIUM 8.4 mg/dL (8.5-10.1); CARBON DIOXIDE 28.8 mmol/L (21.0-32.0); CREATININE - SERUM 2.7 mg/dL (0.6-1.3); POTASSIUM - SERUM 4.4 mmol/L (3.5-5.1)
--- NOTE | 2017-02-06 07:37 | NUR ---
ASSESSMENT COMPLETED.LYING QUIETLY. DENIES ANY NEEDS. TELEMERTY SHOWS CAF WITH PVCS. PT IS ON ROOM AIR. LEFT HAND SL.SR UP WITH CALL LIGHT IN REACH. WILL MONITOR
[2017-02-06 08:59] VITALS: BP 126/71
[2017-02-06] MEDS ORDERED: METOPROLOL TART50 MG PO (10:53)
[2017-02-06] MEDS ORDERED: FERREX 150 PLUS1 CAP PO (10:53)
[2017-02-06] MEDS ORDERED: CARDIZEM60 MG PO (10:53)
[2017-02-06] MEDS ORDERED: XARELTO20 MG PO (10:53)
[2017-02-06] MEDS ORDERED: NITRO-DUR0.2 MG TRANSDERM (10:54)
[2017-02-06] MEDS ORDERED: LASIX40 MG PO (10:54)
--- NOTE | 2017-02-06 11:22 | NUR ---
resting quietly resp unlabored nad noted
--- NOTE | 2017-02-06 11:51 | NUR ---
UP ON SIDE OF BED FOR DIET. DENIES ANY NEEDS. CALL LIGHT IN REACH WITH SR UP.TELEMERTY SHOWS AFIB WITH A RARE OF 74
[2017-02-06 12:40] VITALS: BP 144/88
--- NOTE | 2017-02-06 14:27 | NUR ---
PT DISCHARGED.IV DCD WITH TIP INTACT. INSTRUCTIONS GIVEN TO PT. AWAITING TRANSPORTATION.
--- NOTE | 2017-02-06 16:05 | NUR ---
TO PRIVATE CAR PER WHEELCHAIR.
== END 2017-02-06 16:06 | disposition home or self-care (01) | DRG 291 ==
LOC: D.ER 12:46 → D.M2 16:17
PROVIDERS: Emergency Medicine; ADMIT Family Medicine
DX: I13.0 Hypertensive heart and chronic kidney disease with heart failure and stage 1 through stage 4 chronic kidney disease, or unspecified chronic kidney disease (principal); I50.33 Acute on chronic diastolic (congestive) heart failure; N18.4 Chronic kidney disease, stage 4 (severe); N17.9 Acute kidney failure, unspecified; I69.359 Hemiplegia and hemiparesis following cerebral infarction affecting unspecified side; Z99.2 Dependence on renal dialysis; Z91.15 Patient's noncompliance with renal dialysis; D63.1 Anemia in chronic kidney disease; I48.2 Chronic atrial fibrillation

== ENCOUNTER 2017-07-22 11:09 | Inpatient (IN) | payer MEDICAID ==
[~2017-07-22] VITALS: Ht 172.7 cm; Wt 124.7 kg
[~2017-07-22 11:09] MED LIST changes: +FERREX 150 PLUS1 CAP PO; +FLUTICASONE PRO16 GM NASAL; +NITRO-DUR0.2 MG TRANSDERM; +XARELTO20 MG PO
[2017-07-22 12:02] LABS: BASOPHILS 0.3 % (0-2); EOSINOPHILS 0.3 % (0-7); HEMATOCRIT 31.8 % (42.0-54.0); HEMOGLOBIN 9.3 g/dL (13.5-17.5); IMMATURE GRANULOCYTES 0.3 % (0-5); LYMPHOCYTES 10.1 % (15-50); MCHC 29.2 g/dL (31.0-37.0); MCV 71.8 fL (80.0-100.0); MEAN PLATELET VOLUME 8.6 fL (7.4-10.4); MONOCYTES 6.8 % (2-11); NEUTROPHILS 82.2 % (40-80); PLATELET COUNT 244 10x3/uL (130-400); RBC 4.43 10x6/uL (4.20-6.10); RDW 17.4 % (11.5-14.5); WBC 11.9 10x3/uL (4.8-10.8)
[2017-07-22 12:22] LABS: ALBUMIN 2.7 g/dL (3.4-5.0); ANION GAP 16.4 mmol/L (8-16); BILIRUBIN - TOTAL 0.62 mg/dL (0.2-1.3); CALCIUM 8.8 mg/dL (8.5-10.1); CARBON DIOXIDE 26.5 mmol/L (21.0-32.0); CREATININE - SERUM 3.1 mg/dL (0.6-1.3); POTASSIUM - SERUM 3.9 mmol/L (3.5-5.1); PROTEIN - SERUM 7.2 g/dL (6.4-8.2)
[2017-07-22 12:25] LABS: TROPONIN-I 0.03 ng/mL (0.000-0.060)
[2017-07-22 13:16] LABS: AMORPHOUS SEDIMENT <1+ /lpf (NONE SEEN); APPEARANCE SLT CLOUDY (CLEAR); BACTERIA MODERATE /hpf (NONE SEEN); BILIRUBIN NEGATIVE (NEGATIVE); COLOR YELLOW (YELLOW); EPITHELIAL CELLS 0-5 /hpf (0-5); GLUCOSE NEGATIVE (NEGATIVE); KETONE NEGATIVE (NEGATIVE); MUCUS <1+ /lpf (NONE SEEN); NITRITE NEGATIVE (NEGATIVE); PROTEIN 3+ mg/dL (NEGATIVE); SPECIFIC GRAVITY 1.015 (1.005-1.020); UROBILINOGEN NORMAL (NORMAL)
[2017-07-22 16:21] LABS: APTT 31.5 SECONDS (22.8-39.4); INR 1.17 (0.85-1.17); PROTIME 14.7 SECONDS (11.6-15.0)
--- NOTE | 2017-07-22 16:40 | NUR ---
RECEIVED REPORT FROM MARIPOSA TRAILER CHIEF NURSE. MARIPOSA STATED THAT DR. PLASCENCIA AND DR. HENDRIX WERE ALREADY AWARE OF CONSULTS BUT DOCTORS STILL HAVE NOT SEEN PT. 40MG OF LASIX GIVEN IN ER AND CARDIZEM DRIP STARTED.
--- NOTE | 2017-07-22 17:20 | NUR ---
RECEIVED PT TO ROOM 2123 VIA WHEELCHAIR, PT ASSISTED WITH TRANSFERING TO BED. STATES HE IS HURTING. VITAL SIGNS FOLLOWED BP 144/94 R-28, TEMP 98.6, HR 109, O2-94% RA. PT ORIENTED TO ROOM AND CALL LIGHT, HOME HEALTH LPN HELPED PT BATHROOM AND BACK TO BED. DISCOLARATION NOTED TO BILAT EXTREMITIES, HERNIA TO LEFT SIDE OF ABD. LT AC IV INFUSING CARDIZEM AT 5ML/HR. PT ASKING FOR PAIN MEDS, INFOMRED HIM THAT I DID NOT HAVE ANYTHING ORDER FOR PAIN THAT I WOULD TALK TO THE DOCTOR. PT STATED THAT HE ONLY TAKE FOUR MEDICATIONS, WILL RECONCILE MEDS. NAD NOTED, CALL LIGHT IN REACH, WILL START PLAN OF CARE.
[2017-07-22 17:24] LABS: CKMB 0.5 U/L (0.0-3.6); CREATINE KINASE 34 UL (21-232); TROPONIN-I 0.038 ng/mL (0.000-0.060)
[2017-07-22 17:35] LABS: HEMOGLOBIN A1C 6.2 % (4.8-6.0)
--- NOTE | 2017-07-22 17:44 | NUR ---
PT C/O OF PAIN, NOTIFIED ISABEL MOORE. ORDER FOR TYLENOL 500MG Q6PRN RECEIVED.
[2017-07-22] MEDS ORDERED: METOLAZONE5 MG PO (17:50)
[2017-07-22] MEDS ORDERED: ASPIRIN81 MG PO (17:51)
[2017-07-22 18:00] LABS: UDS - AMPHET POSITIVE QUAL (NEGATIVE); UDS - BARB NEGATIVE QUAL (NEGATIVE); UDS - BENZO NEGATIVE QUAL (NEGATIVE); UDS - COCAINE NEGATIVE QUAL (NEGATIVE); UDS - OPIATE NEGATIVE QUAL (NEGATIVE); UDS - PCP NEGATIVE QUAL (NEGATIVE); UDS - THC POSITIVE QUAL (NEGATIVE)
[2017-07-22 18:18] VITALS: BP 144/94; BMI 38.4
[2017-07-22 20:00] VITALS: BP 101/62
[2017-07-22 23:06] LABS: CKMB 0.5 U/L (0.0-3.6); CREATINE KINASE 43 UL (21-232); TROPONIN-I 0.032 ng/mL (0.000-0.060)
[2017-07-23] VITALS: BP 124/64
--- NOTE | 2017-07-23 02:05 | NUR ---
CALL LIGHT IN REACH, WILL CONTINUE WITH PLAN OF CARE. UP TO SHOWER, ASSOCIATE SCIENTIST ON STANDBY. IV INFILTRATED, DC'D WITH TIP INTACT
[2017-07-23 04:00] VITALS: BP 107/57
[2017-07-23 06:35] LABS: BASOPHILS 0.2 % (0-2); EOSINOPHILS 0.9 % (0-7); HEMATOCRIT 29.6 % (42.0-54.0); HEMOGLOBIN 8.6 g/dL (13.5-17.5); IMMATURE GRANULOCYTES 0.2 % (0-5); LYMPHOCYTES 5.7 % (15-50); MCH 20.5 pg (26.0-34.0); MCHC 29.1 g/dL (31.0-37.0); MCV 70.6 fL (80.0-100.0); MEAN PLATELET VOLUME 8.5 fL (7.4-10.4); MONOCYTES 14.5 % (2-11); NEUTROPHILS 78.5 % (40-80); PLATELET COUNT 255 10x3/uL (130-400); RBC 4.19 10x6/uL (4.20-6.10); RDW 17.3 % (11.5-14.5); WBC 10.7 10x3/uL (4.8-10.8)
[2017-07-23 07:11] LABS: ALBUMIN 2.5 g/dL (3.4-5.0); ALKALINE PHOSPHATASE 180 U/L (46-116); BILIRUBIN - TOTAL 0.58 mg/dL (0.2-1.3); CALCIUM 8.5 mg/dL (8.5-10.1); CARBON DIOXIDE 24.5 mmol/L (21.0-32.0); CHLORIDE - SERUM 92 mmol/L (98-107); CKMB 0.7 U/L (0.0-3.6); CREATINE KINASE 37 UL (21-232); PROTEIN - SERUM 6.9 g/dL (6.4-8.2); SODIUM 134 mmol/L (136-145); TROPONIN-I 0.026 ng/mL (0.000-0.060); UREA NITROGEN 78 mg/dL (7-18)
[2017-07-23 07:13] LABS: ALT (SGPT) 47 U/L (10-68); CALC OSMOLALITY 290 mosm/kg (275-300); CREATININE - SERUM 4.3 mg/dL (0.6-1.3); GLUCOSE 106 mg/dL (74-106); eGFR NON AFRICAN AMERICAN 16 mL/min (90-120)
--- NOTE | 2017-07-23 07:13 | NUR ---
AM ROUNDS- PT IN BED, WITH EYES CLOSED, AROUSES EASILY TO VOICE. RESP EVEN AND UNLABORED. PT RATE PAIN LEVEL OF 5/10. LT FA INFUSING CARDIZEM AT 5CC/HR. BED LOW AND WHEELS LOCKED, BEDSIDE RAILS X2, CALL LIGHT IN REACH, NAD NOTED, WILL CONTINUE PLAN OF CARE.
[2017-07-23 08:21] VITALS: BP 137/59
[2017-07-23 12:16] VITALS: BP 123/58
--- NOTE | 2017-07-23 12:50 | NUR ---
CARDIZEM DRIP STOPPED AT THIS TIME. ADMINSTERED PO CARDIZEM AND BETAPACE. BUMEX DRIP STARTED AT THIS TIME TO INFUSE TO LT FA AT 10CC/HR. PT SCREAMING BECAUSE IV IS BEEPING. FIXED IV, PT ASKING FOR SOMETHING STRONGER THAN TYLENOL HE STATES THAT THE TYLENOL DOES NOT HELP AT ALL. INFOMRED PT THAT DR. OCAMPO HAS TO SEE HIM FIRST. PT STATED " OK TURN THE LIGHTS OFF I AM GOING TO SLEEP." CALL LIGHT IN REACH AND URINAL IN REACH, NAD NOTED.
--- NOTE | 2017-07-23 14:14 | CN ---
PATIENT NAME:AYLIN MARIN MEDICAL RECORD: [id number] : 66 LOCATION:[facility] D.[id number] ADMIT DATE: 07/22/17 ACCOUNT: [id number] CONSULTING PHYSICIAN: CHAZ PLASCENCIA MD REFERRING PHYSICIAN: STEPHAN OCAMPO MD DATE OF CONSULTATION: 07/23/2017 CARDIOLOGY CONSULTATION DIAGNOSES: 1. Congestive heart failure, chronic systolic dysfunction. 2. Cardiomyopathy, nonischemic. 3. Atrial fibrillation, chronic. 4. Shortness of breath, dyspnea on exertion. 5. Edema. HISTORY OF PRESENT ILLNESS: Mr. Marin has a past history of cardiomyopathy, ejection fraction was previously in the 30% range. Last echo showed ejection fraction in the 50% range. He, however, has marked lower extremity edema and shortness of breath. No chest pain or chest discomfort. This has been going on for approximately 2 weeks. His troponin is normal. His EKG is atrial fibrillation with rapid ventricular response, no ST-T changes. PHYSICAL EXAMINATION: GENERAL APPEARANCE: Well-nourished, well-developed, appears stated age. Level of distress, comfortable. PSYCHIATRIC: Mental status, alert, normal affect. Orientation, oriented to time, place and person. EYES: Lids and conjunctiva, noninjected. No discharge, no pallor. ENT: Lips, teeth, gums, normal dentition. Oropharynx, no cyanosis, no pallor. NECK: Carotid arteries, bilateral normal upstroke, no bruits, no thrills. JUGULAR VEINS: No jugular venous pressure or distention. CERVICAL LYMPH NODES: Nontender, nonenlarged. THYROID: Not enlarged. Nontender. No nodules. LUNGS: Respiratory effort, unlabored. CHEST: Normal curvature. No thoracic deformity. No chest wall tenderness. Percussion, resonant. Auscultation, clear. No wheezes, no rales, no rhonchi. CARDIAC: Heart rate irregularly irregular, tachycardic with atrial fibrillation. EXTREMITIES: No cyanosis, no edema. Peripheral pulses, full and equal in all extremities, except as noted. No bruits appreciated. ABDOMEN: Soft, nondistended. Normal aorta. No bruit. Nontender. No masses. Liver, nontender, no hepatomegaly. Spleen, nontender, no splenomegaly. MUSCULOSKELETAL: No joint tenderness. No joint swelling. No erythema. NEUROLOGICAL: Normal gait, normal strength, normal tone. SKIN: Warm and dry. OVERALL IMPRESSION: Atrial fibrillation with congestive heart failure. At this time, we will put him on a Bumex drip. His blood pressure is relatively low and he is not able to tolerate his Lopressor and diltiazem. We will change the Lopressor to sotalol. Hopefully, this will do a better job with rate control without hypotension. We will try the diltiazem at 60 mg t.i.d. Discontinue the diltiazem drip. Put him on a Bumex drip. Hopefully, this will cause diuresis with controlled heart rate. CONSULT REPORT [id number] AYLIN MARIN TRANSINT:[id number] Voice Confirmation ID: [id number] DOCUMENT ID: [id number] CHAZ PLASCENCIA MD at 1414 CC: [id number] DICTATION DATE: 07/23/17 1135 COMMUNITY ENGAGEMENT SPECIALIST: 07/23/17 1209 ADM IN [facility] [address] [place] [address]
--- NOTE | 2017-07-23 16:03 | NUR ---
ADMINISTERED 500MG TYLENOL FOR PAIN LEVEL OF 8/10. URINAL EMPTIED AT THIS TIME. PT DENIES ANY OTHER NEEDS AT THIS TIME. CALL LIGHT IN REACH, NAD NOTED, WILL CONTINUE TO MONITOR.
[2017-07-23 16:44] VITALS: BP 103/56
--- NOTE | 2017-07-23 17:08 | NUR ---
PT IN BED, WITH EYES CLOSED, HAVE TO REALLY TALK LOUD TO GET HIM TO WAKE UP. PT REFUSED TO TAKE XARELTO. STATES THAT IT MAKES HIM SICK. PAIN LEVEL NOW 5/10. PT DENIES ANY NEEDS AT THIS TIME. CALL LIGHT IN REACH, NAD NOTED.
--- NOTE | 2017-07-23 19:25 | NUR ---
RECEIVED REPORT., WILL ASSUME CARE OF PT, ASKING FOR A POPICLE, BED IS LOW, SRX2, CALL LIGHT IN REACH, WILL CONTINUE PLAN OF CARE
[2017-07-23 22:40] VITALS: BP 84/44
--- NOTE | 2017-07-23 23:25 | NUR ---
PT RESTING WITH EYES CLOSED. RESP EVEN AND REGULAR. SR UP X2, CALL LIGHT WITHIN REACH.
[2017-07-24 02:08] VITALS: BP 102/50
[2017-07-24 06:53] LABS: BASOPHILS 0.2 % (0-2); EOSINOPHILS 2.4 % (0-7); HEMATOCRIT 27.8 % (42.0-54.0); HEMOGLOBIN 8.4 g/dL (13.5-17.5); IMMATURE GRANULOCYTES 0.2 % (0-5); LYMPHOCYTES 10.1 % (15-50); MCH 20.9 pg (26.0-34.0); MCHC 30.2 g/dL (31.0-37.0); MCV 69.3 fL (80.0-100.0); MEAN PLATELET VOLUME 8.8 fL (7.4-10.4); MONOCYTES 11.8 % (2-11); NEUTROPHILS 75.3 % (40-80); PLATELET COUNT 282 10x3/uL (130-400); RBC 4.01 10x6/uL (4.20-6.10); RDW 17.1 % (11.5-14.5); WBC 9.6 10x3/uL (4.8-10.8)
[2017-07-24 06:59] LABS: ALBUMIN 2.3 g/dL (3.4-5.0); ANION GAP 19.9 mmol/L (8-16); BILIRUBIN - TOTAL 0.53 mg/dL (0.2-1.3); CALCIUM 8.5 mg/dL (8.5-10.1); CARBON DIOXIDE 24.7 mmol/L (21.0-32.0); CREATININE - SERUM 5.2 mg/dL (0.6-1.3); POTASSIUM - SERUM 3.6 mmol/L (3.5-5.1); PROTEIN - SERUM 7.8 g/dL (6.4-8.2)
--- NOTE | 2017-07-24 07:00 | NUR ---
RECEIVED REPORT. ASSUMED CARE OF PATIENT. CALL LIGHT WITHIN REACH. PATIENT RESTING WITH EYES CLOSED. EASILY AROUSED. DENIES NEEDS AT THIS TIME. NO DISTRESS. LARGE ABD HERNIA NOTED, PATIENT STATES HE HAS HAD THE HERNIA SINCE HE WAS 18 YEARS OLD. NO DISTRESS.
[2017-07-24 07:27] LABS: ALBUMIN 2.4 g/dL (3.4-5.0); ANION GAP 22.4 mmol/L (8-16); CALCIUM 8.2 mg/dL (8.5-10.1); CARBON DIOXIDE 23.4 mmol/L (21.0-32.0); CREATININE - SERUM 5.2 mg/dL (0.6-1.3); PHOSPHOROUS 8.8 mg/dL (2.5-4.9); POTASSIUM - SERUM 3.8 mmol/L (3.5-5.1)
[2017-07-24 08:00] VITALS: BP 98/51
[2017-07-24 12:00] VITALS: BP 100/51
[2017-07-24 16:00] VITALS: BP 88/49
--- NOTE | 2017-07-24 16:33 | NUR ---
PATIENT REFUSED XARELTO. STRESSED THE IMPORTANCE OF THIS MEDICATION AND PATIENT CONTINUES TO REFUSE MEDICATION.
--- NOTE | 2017-07-24 18:00 | NUR ---
ASSISTED TO RESTROOM AND BACK TO BED. CALL LIGHT WITHIN REACH. NO DISTRESS.
[2017-07-24 21:07] VITALS: BP 87/35
[2017-07-25] VITALS (17 sets, daily range): BP systolic 80–111; BP diastolic 32–65
[2017-07-25 05:18] LABS: BASOPHILS 0.3 % (0-2); EOSINOPHILS 1.5 % (0-7); HEMATOCRIT 25.3 % (42.0-54.0); HEMOGLOBIN 7.6 g/dL (13.5-17.5); IMMATURE GRANULOCYTES 0.3 % (0-5); LYMPHOCYTES 10.4 % (15-50); MCH 20.5 pg (26.0-34.0); MCV 68.4 fL (80.0-100.0); MEAN PLATELET VOLUME 8.8 fL (7.4-10.4); MONOCYTES 11.5 % (2-11); PLATELET COUNT 324 10x3/uL (130-400); WBC 11.8 10x3/uL (4.8-10.8)
[2017-07-25 05:48] LABS: ALBUMIN 2.2 g/dL (3.4-5.0); ANION GAP 23.4 mmol/L (8-16); CALCIUM 7.6 mg/dL (8.5-10.1); CREATININE - SERUM 6.5 mg/dL (0.6-1.3)
[2017-07-25 05:49] LABS: PHOSPHOROUS 11.9 mg/dL (2.5-4.9); POTASSIUM - SERUM 4.4 mmol/L (3.5-5.1)
[2017-07-25 06:03] LABS: ALBUMIN 2.2 g/dL (3.4-5.0); ANION GAP 24.5 mmol/L (8-16); BILIRUBIN - TOTAL 0.51 mg/dL (0.2-1.3); CALCIUM 7.4 mg/dL (8.5-10.1); CARBON DIOXIDE 20.8 mmol/L (21.0-32.0); CREATININE - SERUM 6.4 mg/dL (0.6-1.3); POTASSIUM - SERUM 4.3 mmol/L (3.5-5.1); PROTEIN - SERUM 7.3 g/dL (6.4-8.2)
--- NOTE | 2017-07-25 07:00 | NUR ---
RECEIVED REPORT. ASSUMED CARE OF PATIENT. CALL LIGHT WITHIN REACH. PATIENT RESTING ON LEFT LATERAL SIDE WITH EYES CLOSED. EASILY AROUSED. PATIENT UNCOOPERATIVE DURING ASSESSMENT, WILL NOT REPOSITION. DENIES NEEDS. NO DISTRESS.
--- NOTE | 2017-07-25 12:38 | NUR ---
FOOD REQUEST PLACED TO DIETARY FOR SOUP.
--- NOTE | 2017-07-25 13:57 | NUR ---
PER PATIENT REQUEST, CALLED AND SPOKE TO VAL, HIS ROOMMATE @ [phone] TO INFORM HIM OF THE BLOOD TRANSFUSION PATIENT WILL RECEIVE TODAY. VAL THANKED THIS CURATOR OF PHOTOGRAPHY AND PRINTS FOR CALLING ON BEHALF OF PATIENT TO NOTIFY HIM OF THIS NEWS.
--- NOTE | 2017-07-25 14:21 | NUR ---
BLOOD TRANSFUSION WITH 1ST UNIT OF PRBC'S STARTED AT THIS TIME. PATIENT TOLERATING BLOOD TRANSFUSION WELL. NO S/S REACTION.
--- NOTE | 2017-07-25 14:41 | NUR ---
TOLERATING BLOOD TRANSFUSION WELL. NO DISTRESS.
--- NOTE | 2017-07-25 16:20 | NUR ---
MEDICATED FOR HEADACHE AT THIS TIME. NO DISTRESS.
--- NOTE | 2017-07-25 17:05 | NUR ---
FIRST UNIT PRBCS COMPLETED INFUSING, NS INFUSING AT KVO. PATIENT SITTING TO BEDSIDE CONSUMING PM MEAL.
--- NOTE | 2017-07-25 17:50 | NUR ---
2ND UNIT PRBCS STARTED. PATIENT ALERT, TALKING. CNAS AT BEDSIDE GIVING PATIENT BEDBATH.
--- NOTE | 2017-07-25 17:55 | NUR ---
PATIENT NOTED TO HAVE RATE DROPPING TO LOW 40'S ON TELEMETRY. BP 84/46. PATIENT BLOOD PRESSURE FLUCTUATING MOST OF THIS SHIFT. AT BEDSIDE FOR ROUNDS WHEN HEART RATE DROPPED TO 40. DR. CORRIGAN GAVE ORDERS TO PLACE PATIENT IN UNIT. CHARGE NURSE NOTIFIED CREEL SELECTOR OF NEED TO TRANSFER. THIS MUNITIONS HANDLER SUPERVISOR ASKED IF HE WISHES TO CONTINUE WITH SECOND UNIT OF PRBC'S AND STATED TO CONTINUE WITH 2ND UNIT OF PRBC'S. PATIENT ALERT/ORIENTED ANSWERING QUESTIONS APPROPRIATELY. CALL LIGHT WITHIN REACH.
--- NOTE | 2017-07-25 18:09 | NUR ---
MARIA ELENA FROM ICU HERE TO EVALUATE PATIENT. WILL CALL AND GIVE ROOM NUMBER.
--- NOTE | 2017-07-25 18:55 | NUR ---
PT INCONTINENT OF BOWELS; LARGE SEMI FORMED BOWEL MOVEMENT. PT CLEANED. LINENS CHANGED. NEW GOWN PROVIDED.
--- NOTE | 2017-07-25 19:30 | NUR ---
ASSESSMENT COMPLETE. S1S2; IRREGULAR. RR UNLABORED; WHEEZE NOTED BILATERALLY IN UPPER LOBES; DIMINISHED BILATERALLY IN LOWER LOBES. 4L VIA NC. PT MAKES CHANGES IN POSITION INDEPENDENTLY. ATTENTION SEEKING BEHAVIOR; NUMEROUS CALLS WITH NO NEEDS EXPRESSED. 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 GENERALIZED BRUISING NOTED TO R/L ARMS. RADIAL AND PEDAL PULSES PALPATED. SKIN WARM; DRY. BRADYCARDIA AND UNCONTROLLED AFIB. HYPOTENSION NOTED. MONITORING HR AND BP CLOSELY. PRBC INFUSING. NO S/S OF INFUSION REACTION.
--- NOTE | 2017-07-25 20:40 | NUR ---
PT ASSISTED TO BEDPAN. FLATULANCE ONLY; NO BM.
--- NOTE | 2017-07-25 21:30 | NUR ---
INFUSION OF 2ND PRBC COMPLETE.
--- NOTE | 2017-07-25 21:45 | NUR ---
DOPAMINE STARTED PER ORDERS. SEE IV FLOW SHEET
--- NOTE | 2017-07-25 22:00 | NUR ---
NO VISITORS DURING VISITATION.
--- NOTE | 2017-07-25 22:15 | NUR ---
PT ATTEMPTING TO GET OUT OF BED. PT STATED; "YOU SHOULD HAVE YOUR BOYFRIEND COME HERE AND PUNCH ME OUT. I JUST WANT IT ALL TO END." PT STATED NOT GOING TO HURT SELF. WILL BE MONITORING CLOSELY.
--- NOTE | 2017-07-25 22:21 | NUR ---
PT INCONTINENT OF STOOL. SMALL BM; SOFT. PT CLEANED. LINENS CHANGED.
--- NOTE | 2017-07-25 23:10 | NUR ---
REASSESSMENT COMPLETE. NO ACUTE CHANGES FROM PREVIOUS ASSESSMENT. MONITORING CLOSELY.
[2017-07-26] VITALS (71 sets, daily range): BP systolic 11–125; BP diastolic 40–86; Ht 172.7 cm; Wt 124.7 kg
--- NOTE | 2017-07-26 01:30 | NUR ---
PT AWAKE; MOANING. VERBALLY DISRUPTIVE. CONTINUES TO CALL OUT DESPITE ENTERING THE ROOM FOR ASSISTANCE.
--- NOTE | 2017-07-26 03:10 | NUR ---
REASSESSMENT COMPLETE. NO ACUTE CHANGES FROM PREVIOUS ASSESSMENT.
[2017-07-26 03:54] LABS: BASOPHILS 0.2 % (0-2); EOSINOPHILS 0.6 % (0-7); HEMATOCRIT 30.2 % (42.0-54.0); HEMOGLOBIN 9.6 g/dL (13.5-17.5); IMMATURE GRANULOCYTES 0.4 % (0-5); LYMPHOCYTES 6.7 % (15-50); MCH 22.2 pg (26.0-34.0); MCHC 31.8 g/dL (31.0-37.0); MCV 69.9 fL (80.0-100.0); MEAN PLATELET VOLUME 8.9 fL (7.4-10.4); MONOCYTES 12.9 % (2-11); NEUTROPHILS 79.2 % (40-80); PLATELET COUNT 355 10x3/uL (130-400); RBC 4.32 10x6/uL (4.20-6.10); RDW 17.9 % (11.5-14.5); WBC 12.5 10x3/uL (4.8-10.8)
[2017-07-26 04:07] LABS: ALBUMIN 2.3 g/dL (3.4-5.0); ANION GAP 26.1 mmol/L (8-16); BILIRUBIN - TOTAL 0.62 mg/dL (0.2-1.3); CALCIUM 7.7 mg/dL (8.5-10.1); CARBON DIOXIDE 17.5 mmol/L (21.0-32.0); CREATININE - SERUM 6.7 mg/dL (0.6-1.3); POTASSIUM - SERUM 4.6 mmol/L (3.5-5.1); PROTEIN - SERUM 7.7 g/dL (6.4-8.2)
--- NOTE | 2017-07-26 05:40 | NUR ---
NO VISITORS DURING VISITATION.
--- NOTE | 2017-07-26 07:00 | NUR ---
REPORT RECEIVED FROM OFF [place] NURSE. SEE ASSEMENT IN FLOW SHEET. PT ALERT AND ORIENTED. HE WILL MOAN AND GROAN AND WHENEVER ASKED IF HE IS OK HE STATES YES. HEART RATE 50-58 AFIB. ON DOPAMINE GTT. BP STABLE AT SBP 110-120. BREATHING NORMAL AN DUNLABORED. CALL LIGHT IN REACH. WILL CONT POC.
--- NOTE | 2017-07-26 09:00 | NUR ---
PT USES CALL LIGHT TO CALL FOR ASSISTANCE FOR BATHROOM. REQUESTED URINAL. GIVEN WITH 550 OF CLEAR URINE.
--- NOTE | 2017-07-26 11:00 | NUR ---
NO CHANGE IN PTS CONDITION. DOPAMINE TITRATING DOWN PER ORDRES. CURRENT DOSE 4MCG. BP STABLE. DENIES PAIN AT THIS TIME.
--- NOTE | 2017-07-26 13:00 | NUR ---
PT RESTING WITH EYES CLOSED WITH NO S/SX OF DISTRESS/DISCOMFORT NOTED. CALL LIGHT IN RECAH. WILL CONT POC
--- NOTE | 2017-07-26 13:32 | NUR ---
* Is the patient Alert and Oriented? Yes 0 * How many steps to enter\exit or inside your home? 4 0 * PCP Dr. Winchester 0 * Pharmacy [facility] on [address] 0 * Preadmission Environment Home with Family 0 * ADLs Independent 0 * Equipment CPAP 0 * List name and contact numbers for known caregivers / representatives who currently or will assist patient after discharge: Room Mate - Tristian Fernandez [phone] 0 * Additional services required to return to the preadmission environment? No 0 * Can the patient safely return to the preadmission environment? Yes 0 * Has this patient been hospitalized within the prior 30 days at any hospital? No Patient Name: AYLIN ALDANA Admission Status: ER Accout number: [id number] Admission Date: 07-22-2017 : 1970 Admission Diagnosis:SHORTNESS OF BREATH Attending: STEPHAN OCAMPO Current LOS: 4 Planned Disposition: Home Primary Insurance: [place] Discharge Planning Comments: CM met with patient to assess dc plans/needs. Patient states he lives with his room mate, Tristian Fernandez. He reports he is independent with all ADL's & IADL's. He states he has a CPAP machine but doesn't use it or any other DME. He denies having home health services. At dc, he plans to return home. CM will follow & assist as needed. Data Entry: Tamra Lopez
--- NOTE | 2017-07-26 15:00 | NUR ---
PT RESTING IN BED WITH EYES CLOSED WITH NO S/SX OF DISTRESS/DISCOMFRT NOTED. REFUSING GOWN STILL CALL LIGHT IN REACH. WILL CONT POC
--- NOTE | 2017-07-26 16:00 | NUR ---
WOKE UP FOR DINNER AND ATE 100%. C/O HEART BURN. CALCIUM CARBONATE PER ORDERS.
--- NOTE | 2017-07-26 18:00 | NUR ---
C/O BEING COLD. BLANKET GIVEN NO S/SX OF DISTRESS/DISCOMFORT NOTED. CALL LIGHT IN REACH. WILL CONT POC.
--- NOTE | 2017-07-26 19:30 | NUR ---
REPORT RECEIVED. ASSESSMENT COMPLETE PER FLOW SHEET. REFER FOR FINDINGS.VSS. GIVEN TEA PER REQUEST DENIES FURTHER NEEDS.
--- NOTE | 2017-07-26 20:15 | NUR ---
TEACHING ON USING URINAL AND BEDPAN ADM. STATES UNDERSTANDING WILL REASSESS
--- NOTE | 2017-07-26 21:30 | NUR ---
PT HORTICULTURAL AGENT LIGHT GIVEN TEA AND BROTH PER REQUEST DENIES FURTHER NEEDS
--- NOTE | 2017-07-26 23:00 | NUR ---
REASSESSMENT COMPLETEP ER FLOW SHEET. VSS NO NEW CHANGES. WILL CONTINUE TO MONITOR
[2017-07-27] VITALS (9 sets, daily range): BP systolic 99–136; BP diastolic 50–85
--- NOTE | 2017-07-27 00:10 | NUR ---
ASSISTED TO CHAIR GAIT STEADY NEEDS MET
--- NOTE | 2017-07-27 00:45 | NUR ---
COMPLETE BB LINEN CHANGE ADM. NEEDS MET.
--- NOTE | 2017-07-27 03:00 | NUR ---
REASSESSMENT COMPLETE PER FLOW SHEET. VSS. NO NEW CHANGES. WILL CONTINUE TO MONITOR
[2017-07-27 03:58] LABS: BASOPHILS 0.1 % (0-2); EOSINOPHILS 0.3 % (0-7); HEMATOCRIT 28.5 % (42.0-54.0); HEMOGLOBIN 8.9 g/dL (13.5-17.5); IMMATURE GRANULOCYTES 0.4 % (0-5); LYMPHOCYTES 5.5 % (15-50); MCH 21.7 pg (26.0-34.0); MCHC 31.2 g/dL (31.0-37.0); MCV 69.3 fL (80.0-100.0); MEAN PLATELET VOLUME 8.7 fL (7.4-10.4); NEUTROPHILS 83.7 % (40-80); PLATELET COUNT 328 10x3/uL (130-400); RBC 4.11 10x6/uL (4.20-6.10); RDW 17.8 % (11.5-14.5); WBC 11.8 10x3/uL (4.8-10.8)
[2017-07-27 04:16] LABS: ALBUMIN 2.1 g/dL (3.4-5.0); BILIRUBIN - TOTAL 0.54 mg/dL (0.2-1.3); CALCIUM 8.3 mg/dL (8.5-10.1); CARBON DIOXIDE 17.8 mmol/L (21.0-32.0); CREATININE - SERUM 5.4 mg/dL (0.6-1.3); PROTEIN - SERUM 7.1 g/dL (6.4-8.2)
[2017-07-27 04:17] LABS: PHOSPHOROUS 8.1 mg/dL (2.5-4.9); POTASSIUM - SERUM 3.8 mmol/L (3.5-5.1)
--- NOTE | 2017-07-27 11:35 | NUR ---
REPORT CALLED TO [facility] SPOKE WITH MELISSA WATTS.
--- NOTE | 2017-07-27 12:13 | NUR ---
PATIENT TRANSFERRED TO 2133 VIA W/C IN GOOD STABLE CONDITION. PATIENT TRANSFERRED TO AND FROM W/C WITH MINIMAL ASSIST.
--- NOTE | 2017-07-27 13:15 | NUR ---
RECIVED FROM ICU PER WC TO ROOM 2133. WITHOUT DISTRESS NOTED.
--- NOTE | 2017-07-27 17:15 | NUR ---
WITHOUT CHANGES OR DISTRESS NOTED AT THIS TIME.
--- NOTE | 2017-07-27 19:04 | NUR ---
RECIEVED LAYING IN BED WITH EYES CLOSED. MOANING AND C/O LEG PAIN. ATTEMPTED TO EDUCATE THAT HE PROBABLY NEEDS TO GEY OOB AND MOVE AROUND AND THAT LAYING IN BED TO LONG CAN CAUSE MUSCLE ACHES AND BODY ACHES. ASKED IF HE WOULD LIKE TO GET UP AND HE STATED "NO". CALL LIGHT IN REACH.
[2017-07-28 00:45] VITALS: BP 104/68
[2017-07-28 05:11] VITALS: BP 100/68
--- NOTE | 2017-07-28 06:29 | NUR ---
ATTEMPTS TO COLLECT UA UNSUCCESFUL. STATES " I CAN'T GO RIGHT NOW'. EXPLAINED WHEN HE COULD LET US KNOW. VOICED UNDERSTANDING.
--- NOTE | 2017-07-28 07:15 | NUR ---
REPORT RECEIVED. RR EVEN AND UNLABORED, PT ASLEEP. NAME PLACED ON WHITE BOARD, WILL CTM.
[2017-07-28 08:15] VITALS: BP 134/76
--- NOTE | 2017-07-28 11:38 | NUR ---
Nutrition follow-up: Diet: Renal ADA PO intake 75-100% of meals labs reviewed Wt: 266# PO intake good at this time RDN following.
--- NOTE | 2017-07-28 12:01 | NUR ---
PT ASLEEP. EASY TO AROUSE. DENIES NEEDS AT THIS TIME.
[2017-07-28 12:14] VITALS: BP 92/53
[2017-07-28 14:24] LABS: BASOPHILS 0.3 % (0-2); EOSINOPHILS 0.4 % (0-7); HEMATOCRIT 28.8 % (42.0-54.0); HEMOGLOBIN 8.7 g/dL (13.5-17.5); IMMATURE GRANULOCYTES 0.5 % (0-5); LYMPHOCYTES 6.7 % (15-50); MCHC 30.2 g/dL (31.0-37.0); MEAN PLATELET VOLUME 8.6 fL (7.4-10.4); MONOCYTES 10.6 % (2-11); NEUTROPHILS 81.5 % (40-80); PLATELET COUNT 368 10x3/uL (130-400); RBC 3.96 10x6/uL (4.20-6.10); RDW 18.3 % (11.5-14.5); WBC 11.3 10x3/uL (4.8-10.8)
[2017-07-28 14:36] LABS: MCV 72.7 fL (80.0-100.0)
[2017-07-28 15:15] LABS: ANION GAP 21.1 mmol/L (8-16); BILIRUBIN - TOTAL 0.33 mg/dL (0.2-1.3); CALCIUM 7.8 mg/dL (8.5-10.1); CARBON DIOXIDE 18.7 mmol/L (21.0-32.0); CREATININE - SERUM 4.6 mg/dL (0.6-1.3); POTASSIUM - SERUM 3.8 mmol/L (3.5-5.1); PROTEIN - SERUM 6.1 g/dL (6.4-8.2)
[2017-07-28 16:02] VITALS: BP 104/58
--- NOTE | 2017-07-28 19:23 | NUR ---
PT IN BED RESTING QUIETLY WITH EYES CLOSED. BREATHING EVEN AND UNLABORED. BED IN LOW POSITION, CALL LIGHT WITHIN REACH.
[2017-07-28 21:09] VITALS: BP 127/71
[2017-07-29 01:59] VITALS: BP 103/52
[2017-07-29 05:54] VITALS: BP 112/59
--- NOTE | 2017-07-29 06:10 | NUR ---
PT IN BED RESTING QUIETLY. BREATHING EVEN AND UNLABORED. BED IN LOW POSITION, CALL LIGHT WITHIN REACH.
[2017-07-29 06:17] LABS: BASOPHILS 0.2 % (0-2); EOSINOPHILS 0.8 % (0-7); HEMATOCRIT 27.5 % (42.0-54.0); HEMOGLOBIN 8.3 g/dL (13.5-17.5); IMMATURE GRANULOCYTES 0.5 % (0-5); LYMPHOCYTES 9.9 % (15-50); MCH 21.8 pg (26.0-34.0); MCHC 30.2 g/dL (31.0-37.0); MCV 72.4 fL (80.0-100.0); MEAN PLATELET VOLUME 8.7 fL (7.4-10.4); MONOCYTES 11.4 % (2-11); NEUTROPHILS 77.2 % (40-80); PLATELET COUNT 364 10x3/uL (130-400); RDW 18.8 % (11.5-14.5); WBC 9.8 10x3/uL (4.8-10.8)
[2017-07-29 06:28] LABS: ALBUMIN 1.9 g/dL (3.4-5.0); BILIRUBIN - TOTAL 0.3 mg/dL (0.2-1.3); CALCIUM 8.5 mg/dL (8.5-10.1); CARBON DIOXIDE 20.5 mmol/L (21.0-32.0); CREATININE - SERUM 4.2 mg/dL (0.6-1.3); POTASSIUM - SERUM 3.5 mmol/L (3.5-5.1); PROTEIN - SERUM 6.5 g/dL (6.4-8.2)
--- NOTE | 2017-07-29 07:20 | NUR ---
MORNING ROUNDS MADE. PATIENT LAYING IN BED WITH EYES CLOSED. HE SPOKE WHEN SPOKEN TO. DENIES ANY NEEDS AT THIS TIME. CPOC.
--- NOTE | 2017-07-29 07:30 | NUR ---
AM ROUNDS. RR EVEN AND UNLABORED, PT DENIES NEEDS AT THIS TIME.
[2017-07-29 07:55] VITALS: BP 108/59
--- NOTE | 2017-07-29 08:00 | NUR ---
HELPED PATIENT OFF OF TOILET TO THE BED. ADVISED WE ARE NEEDING A URINE SAMPLE. STATES HE WILL NEED HELP WITH THAT. INSTRUCTED HIM TO PRESS CALL LIGHT WHEN HE NEEDS TO URINATE AND I WILL HELP HIM. CPOC.
--- NOTE | 2017-07-29 09:10 | NUR ---
PATIENT LAYING IN BED. MEDS GIVEN WITHOUT ISSUES. ALL QUESTIONS ANSWERED. NAD NOTED AT THIS TIME. WILL CONTINUE TO MONITOR. CPOC.
--- NOTE | 2017-07-29 10:32 | NUR ---
PATIENT LAYING IN BED WITH EYES CLOSED. AROUSED WHEN SPOKEN TO. CALL LIGHT IN REACH. PATIENT CURRENTLY HAS 3 BEDRAILS UP, REQUESTED TO HAVE THE 4TH RAIL UP BECAUSE HE'S AFRAID HE WILL FALL OUT OF BED. ADVISED I COULD RAISE THE ONE CLOSEST TO HIM AND PUT DOWN THE ONE BEHIND HIM, BUT I CAN'T RAISE ALL 4 RAILS D/T THAT CONSIDERED BEING A CONSTRAINT. PATIENT VOICED UNDERSTANDING. WILL CONTINUE TO MONITOR. CPOC.
[2017-07-29 12:21] VITALS: BP 198/58
--- NOTE | 2017-07-29 12:30 | NUR ---
PATIENT SITTING UP ON SIDE OF BED. STATES HE'S "DIRTY" AND NEEDS HELP. HELPED PATIENT STAND UP AND ASSISTED TO TOILET. ALL BEDDING CHANGED. INSTRUCTED TO CALL WHEN HE WAS DONE ON TOILET. HE VOICED UNDERSTANDING. CPOC.
--- NOTE | 2017-07-29 12:35 | NUR ---
PATIENT HELPED FROM TOILET TO BED. LAYING IN BED WITH CALL LIGHT IN REACH. INSTRUCTED TO CALL IF HE HAS ANY NEEDS. VOICED UNDERSTANDING. CPOC.
--- NOTE | 2017-07-29 14:26 | NUR ---
PATIENT LAYING IN BED WITH EYES CLOSED. CHEST RISES AND FALLS EQUALLY. CALL LIGHT IN REACH. CPOC
[2017-07-29 15:25] VITALS: BP 115/71
--- NOTE | 2017-07-29 15:47 | NUR ---
PATIENT SITTING UP IN BED. ASSISTED TO THE BATHROOM. URINE SAMPLE GIVEN. PATIENT SITTING ON SIDE OF BED AND C/O FEELING "CONFUSED" AND "EVERYTHING IS BACKWARDS"... DENIES ANY PAIN. BP 125/88 P 64 IN AFIB ON TELEMETRY. TALKED PATIENT THROUGH DEEP BREATHING. HE IS NOW CALM, LAYING BACK IN BED WITH EYES CLOSED. STATES HE NO LONGER FEELS "WEIRD", BUT C/O BEING VERY TIRED AND HAVING A HEADACHE THAT SEEMS TO BE GETTING WORSE. PATIENT IS COMFORTABLE, CALL LIGHT IS IN REACH, BED RAILS UP, AND BED IS IN LOWEST POSITION. WILL CONTINUE TO MONITOR CLOSELY. CPOC.
--- NOTE | 2017-07-29 16:18 | NUR ---
PATIENT LAYING IN BED WITH EYES CLOSED. CHEST RISES AND FALLS EQUALLY BILATERALLY. NAD NOTED. BP 117/61, TELEMETRY SHOWS CAF @ 61 BPM. WILL CONTINE TO MONITOR. CPOC.
--- NOTE | 2017-07-29 16:56 | NUR ---
PATIENT SITTING UP ON SIDE OF BED EATING DINNER. DENIES ANY NEEDS AT THIS TIME. INSTRUCTED TO CALL WHEN HE NEEDED TO TAKE BM SO WE CAN GET STOOL SAMPLE. PT VOICED UNDERSTANDING. CPOC.
[2017-07-29 17:18] LABS: APPEARANCE CLEAR (CLEAR); COLOR YELLOW (YELLOW); SPECIFIC GRAVITY 1.015 (1.005-1.020)
[2017-07-29 17:19] LABS: BILIRUBIN NEGATIVE (NEGATIVE); GLUCOSE NEGATIVE (NEGATIVE); KETONE NEGATIVE (NEGATIVE); NITRITE NEGATIVE (NEGATIVE); PROTEIN TRACE mg/dL (NEGATIVE); UROBILINOGEN NORMAL (NORMAL)
--- NOTE | 2017-07-29 17:35 | NUR ---
PATIENT LAYING IN BED. MEDS GIVEN WITHOUT PROBLEM. DENIES ANY COMPLAINTS OR NEEDS AT THIS TIME. CPOC.
--- NOTE | 2017-07-29 19:16 | NUR ---
END OF SHIFT ROUNDS MADE. PATIENT LAYING IN BED WITH EYES CLOSED. RESPIRATIONS EQUAL BILAT. WILL GIVE REPORT TO MACHINE CHOCOLATE MOLDER.
--- NOTE | 2017-07-29 19:53 | NUR ---
PT IN BED RESTING QUIETLY. DENIES ANY PAIN OR NEEDS AT THIS TIME. BREATHING EVEN AND UNLABORED. BED IN LOW POSITION, CALL LIGHT WITHIN REACH. WILL CTM.
[2017-07-29 21:43] VITALS: BP 114/69
--- NOTE | 2017-07-29 22:39 | NUR ---
PT BECAME VERY ANXIOUS. HE STATED THAT HE HAD A "TERRIBLE DREAM" IN WHICH "RATS WERE CRAWLING ALL OVER AND BITING" HIM. REORIENTED PT AND HELPED HIM TO CALM DOWN. BROUGHT HIM A DRINK PER REQUEST. BREATHING EVEN AND UNLABORED. BED IN LOW POSITION, CALL LIGHT WITHIN REACH. WILL CTM.
[2017-07-30 05:18] VITALS: BP 104/61
[2017-07-30 06:18] LABS: BASOPHILS 0.3 % (0-2); EOSINOPHILS 1.1 % (0-7); HEMATOCRIT 29.8 % (42.0-54.0); IMMATURE GRANULOCYTES 0.6 % (0-5); LYMPHOCYTES 9.6 % (15-50); MCH 22.3 pg (26.0-34.0); MCHC 30.2 g/dL (31.0-37.0); MCV 73.8 fL (80.0-100.0); MEAN PLATELET VOLUME 8.5 fL (7.4-10.4); MONOCYTES 8.1 % (2-11); NEUTROPHILS 80.3 % (40-80); PLATELET COUNT 428 10x3/uL (130-400); RBC 4.04 10x6/uL (4.20-6.10); RDW 19.1 % (11.5-14.5); WBC 11.3 10x3/uL (4.8-10.8)
[2017-07-30 06:22] LABS: ALBUMIN 1.9 g/dL (3.4-5.0); BILIRUBIN - TOTAL 0.3 mg/dL (0.2-1.3); CALCIUM 8.6 mg/dL (8.5-10.1); CARBON DIOXIDE 20.4 mmol/L (21.0-32.0); CREATININE - SERUM 3.5 mg/dL (0.6-1.3); POTASSIUM - SERUM 3.4 mmol/L (3.5-5.1); PROTEIN - SERUM 6.4 g/dL (6.4-8.2)
--- NOTE | 2017-07-30 07:44 | NUR ---
AM ROUNDING- RECEIVED REPORT FROM GEAR CODING MACHINE OPERATOR NURSE ISAÍAS. PT IS CURRENTLY LAYING IN BED ON LEFT SIDE WITH EYES CLOSED RESTING. PT WAKES UP AND INFORMS ME TO HAND HIM IS URINAL. ON ROOM AIR. ON MONITOR SHOWING CONTROLLED A-FIB, HR 65. IV SEEN TO LEFT FOREARM WITH NS RUNNING AT 75CC. NO NEED AT THIS CURRENT TIME. WILL CONTINUE TO MONITOR AND CONTINUE WITH PLAN OF CARE.
[2017-07-30 08:00] VITALS: BP 113/52
--- NOTE | 2017-07-30 09:59 | NUR ---
AM MEDICATONS GIVEN AND SHIFT ASSESSMENT DONE. PT HAS STRONG BODY ODOR. PT STATES HE HAD A BATH THIS MORNING. I INFORMED PT THAT WE WILL NEED TO GET HIM IN THE SHOWER TODAY. PT REPLIES, "I AM NOT GOOD ON MY FEET". THIS NURSE INFORMS PT THAT WE CAN ASSIST HIM IN SHOWER. WILL CONTINUE TO MONITOR.
[2017-07-30 12:00] VITALS: BP 108/57
--- NOTE | 2017-07-30 15:44 | NUR ---
PTS OCCULT BLOOD STOOL CAME BACK POSITIVE. ISABEL MOORE NP PAGED TO INFORM HER OF THIS. WILL CONTINUE TO MONITOR.
--- NOTE | 2017-07-30 15:47 | NUR ---
RECEIVED CALLBACK FROM ISABEL MOORE NP. INFORMED HER THAT PTS OCCULT BLOOD STOOL CAME BACK POSITIVE. NO NEW ORDERS RECEIVED. ISABEL MOORE NP ASKED WHAT HBG IS. ISABEL MOORE NP STATES TO MONITOR PT. WILL CONTINUE TO MONITOR.
[2017-07-30 16:00] VITALS: BP 114/64
--- NOTE | 2017-07-30 17:14 | NUR ---
PT IS CURRENTLY LAYING IN BED ON RIGHT SIDE WITH EYES OPEN RESTING. NO NEED AT THIST TIME. WILL CONTINUE TO MONITOR.
--- NOTE | 2017-07-30 19:22 | NUR ---
RECEIVED REPORT, WILL ASSUME CARE OF PT, PT LAYING ON L.SIDE, DENIES ANY NEEDS AT THIS TIME, CALL LIGHT IN REACH, WILL CONTINUE PLAN OF CARE
[2017-07-30 21:40] VITALS: BP 116/64
[2017-07-31] VITALS: BP 128/78
--- NOTE | 2017-07-31 02:11 | NUR ---
PT SLEEPING, NO DIS STREE NOTICED, SRX3, CALL LIGHT IN REACH, WILL CONTINUE PLAN OF CARE
[2017-07-31 04:16] VITALS: BP 108/74
[2017-07-31 05:29] LABS: BASOPHILS 0.2 % (0-2); EOSINOPHILS 0.9 % (0-7); HEMATOCRIT 29.5 % (42.0-54.0); HEMOGLOBIN 8.7 g/dL (13.5-17.5); IMMATURE GRANULOCYTES 0.6 % (0-5); LYMPHOCYTES 13.9 % (15-50); MCH 21.7 pg (26.0-34.0); MCHC 29.5 g/dL (31.0-37.0); MCV 73.6 fL (80.0-100.0); MEAN PLATELET VOLUME 8.3 fL (7.4-10.4); MONOCYTES 5.9 % (2-11); NEUTROPHILS 78.5 % (40-80); PLATELET COUNT 394 10x3/uL (130-400); RBC 4.01 10x6/uL (4.20-6.10); RDW 19.1 % (11.5-14.5); WBC 10.3 10x3/uL (4.8-10.8)
--- NOTE | 2017-07-31 05:36 | NUR ---
PT IN BED RESTING QUIETLY. BREATHING EVEN AND UNLABORED. BED RAILS UP X2. BED IN LOW POSITION, CALL LIGHT WITHIN REACH. WILL CTM.
[2017-07-31 05:58] LABS: ALBUMIN 2.1 g/dL (3.4-5.0); ANION GAP 17.9 mmol/L (8-16); BILIRUBIN - TOTAL 0.3 mg/dL (0.2-1.3); CALCIUM 8.4 mg/dL (8.5-10.1); CARBON DIOXIDE 19.8 mmol/L (21.0-32.0); CREATININE - SERUM 3.1 mg/dL (0.6-1.3); POTASSIUM - SERUM 3.7 mmol/L (3.5-5.1); PROTEIN - SERUM 5.9 g/dL (6.4-8.2)
--- NOTE | 2017-07-31 07:40 | NUR ---
PATIENT ALERT/ORIENT X4. TELEMTRY IN PLACE. CALL LIGHT WITHIN REACH. VOICES NO NEEDS AT THIS TIME.
[2017-07-31 08:00] VITALS: BP 125/75
--- NOTE | 2017-07-31 10:23 | NUR ---
PATIENT LYING IN BED ON RIGHT SIDE. EYES CLOSED. NORMAL SALINE RUNNING IN AT 75CC/HR LEFT FOREARM
[2017-07-31 12:00] VITALS: BP 142/73
--- NOTE | 2017-07-31 12:59 | NUR ---
ANIRUDH HATCH INTO SEE PATIENT. NEW ORDERS RECEIVED
--- NOTE | 2017-07-31 14:10 | NUR ---
DIALYSIS ORDERS FROM ANIRUDH HATCH.
[2017-07-31 16:00] VITALS: BP 131/76
--- NOTE | 2017-07-31 17:36 | NUR ---
PATIENT SITTING UP ON THE SIDE OF THE BED TO EAT SUPPER. CALL LIGHT WITHIN REACH. VOICES NO NEEDS
[2017-07-31 21:22] VITALS: BP 110/67
--- NOTE | 2017-07-31 22:02 | NUR ---
INITIAL ROUNDS COMPLETED AT 191 HRS. PT RESTING WITH EYES CLOSED. RESP EVEN AND REGULAR. ASSESSMENT COMPLETED AT 2030 HRS. VSS. CAF PER CM HR 65. IV TO INNER LFA WITH NS AT 75CC/HR. IV PATENT. LUNGS DIMINISHED IN BASES BILAT. PM MEDS GIVEN PER ORDERS. PT CURRENTLY RESTING WITH EYES CLOSED. RESP EVEN AND REGULAR. SR UP X2, CALL LIGHT WITHIN REACH.
--- NOTE | 2017-08-01 00:17 | NUR ---
PT RESTING WITH EYES CLOSED. RESP EVEN AND REGULAR. SR UP X2, CALL LIGHT WITHIN REACH.
[2017-08-01 01:32] VITALS: BP 113/58
--- NOTE | 2017-08-01 02:09 | NUR ---
PT RESTING WITH EYES CLOSED. RESP EVEN AND REGULAR. SR UP X2, CALL LIGHT WITHIN REACH.
--- NOTE | 2017-08-01 04:05 | NUR ---
PT RESTING WITH EYES CLOSED. RESP EVEN AND REGULAR. SR UP X2, CALL LIGHT WITHIN REACH.
[2017-08-01 04:27] VITALS: BP 111/58
--- NOTE | 2017-08-01 05:59 | NUR ---
VSS THROUGHOUT NIGHT. CAF PER CM. PT DENIED ANY DISCOMFORT. NEEDS MET; WILL CONTINUE TO MONTIOR.
[2017-08-01 06:10] LABS: BASOPHILS 0.2 % (0-2); EOSINOPHILS 1.6 % (0-7); HEMATOCRIT 28.7 % (42.0-54.0); HEMOGLOBIN 8.5 g/dL (13.5-17.5); IMMATURE GRANULOCYTES 0.9 % (0-5); LYMPHOCYTES 13.6 % (15-50); MCH 22.1 pg (26.0-34.0); MCHC 29.6 g/dL (31.0-37.0); MCV 74.7 fL (80.0-100.0); MEAN PLATELET VOLUME 7.9 fL (7.4-10.4); MONOCYTES 7.2 % (2-11); NEUTROPHILS 76.5 % (40-80); PLATELET COUNT 379 10x3/uL (130-400); RBC 3.84 10x6/uL (4.20-6.10); RDW 19.3 % (11.5-14.5); WBC 9.6 10x3/uL (4.8-10.8)
[2017-08-01 06:35] LABS: % SATURATION 5 % (15-55); IRON 19 ug/dl (35-150); TOTAL IRON BIND CAPACITY 338 ug/dl (260-445); UNSAT IRON BIND CAPACITY 319 ug/dl (150-375)
[2017-08-01 06:44] LABS: ALBUMIN 1.9 g/dL (3.4-5.0); ANION GAP 15.9 mmol/L (8-16); BILIRUBIN - TOTAL 0.29 mg/dL (0.2-1.3); CALCIUM 8.5 mg/dL (8.5-10.1); CREATININE - SERUM 2.7 mg/dL (0.6-1.3); POTASSIUM - SERUM 3.9 mmol/L (3.5-5.1); PROTEIN - SERUM 6.2 g/dL (6.4-8.2)
--- NOTE | 2017-08-01 07:35 | NUR ---
ASSESSMENT DONE DENIES NEEDS.
[2017-08-01 09:06] VITALS: BP 128/75
--- NOTE | 2017-08-01 09:47 | NUR ---
RESTS IN BED WITH CALL LIGHT IN REACH. BASSAM NEEDS AT THIS TIME. WILL MONITOR.
[2017-08-01 12:00] VITALS: BP 111/65
[2017-08-01 16:00] VITALS: BP 136/88
--- NOTE | 2017-08-01 16:59 | NUR ---
WITHOUT CHANGES OR DISTRESS NOTED AT THIS TIME. DENIES NEEDS.
[2017-08-01 19:00] VITALS: BP 115/58
--- NOTE | 2017-08-01 19:40 | NUR ---
RECEIVED REPORT, WILL ASSUME CARE OF PT, PT SLEEPING, BED IS LOW, SRX2, CALL LIGHT IN REACH, WILL CONTINUE PLAN OF CARE
[2017-08-02 00:29] VITALS: BP 113/59
[2017-08-02 05:03] VITALS: BP 129/67
[2017-08-02 05:50] LABS: BASOPHILS 0.5 % (0-2); EOSINOPHILS 1.4 % (0-7); HEMATOCRIT 29.9 % (42.0-54.0); HEMOGLOBIN 8.7 g/dL (13.5-17.5); IMMATURE GRANULOCYTES 0.7 % (0-5); LYMPHOCYTES 12.7 % (15-50); MCHC 29.1 g/dL (31.0-37.0); MCV 75.7 fL (80.0-100.0); MEAN PLATELET VOLUME 8.3 fL (7.4-10.4); MONOCYTES 6.8 % (2-11); NEUTROPHILS 77.9 % (40-80); PLATELET COUNT 391 10x3/uL (130-400); RBC 3.95 10x6/uL (4.20-6.10); RDW 19.2 % (11.5-14.5); WBC 9.5 10x3/uL (4.8-10.8)
[2017-08-02 06:19] LABS: ANION GAP 15.8 mmol/L (8-16); BILIRUBIN - TOTAL 0.3 mg/dL (0.2-1.3); CALCIUM 8.7 mg/dL (8.5-10.1); CREATININE - SERUM 2.7 mg/dL (0.6-1.3); POTASSIUM - SERUM 3.8 mmol/L (3.5-5.1); PROTEIN - SERUM 6.1 g/dL (6.4-8.2)
--- NOTE | 2017-08-02 07:43 | NUR ---
AM ROUNDING- RECEIVED REPORT FROM MILL ROLL OPERATOR NURSE ANJALI. PT IS CURRENTLY LAYING ON RIGHT SIDE WITH EYES CLOSED RESTING. ON ROOM AIR. ON MONITOR SHOWING CONTROLLED A-FIB, HR 64. IV SEEN TO LEFT FOREARM THAT IS CURRENTLY SALINE LOCKED (PER ANJALI PT REFUSES IV FLUIDS ORDERED). NO NEED AT THIS CURRENT TIME. WILL CONTINUE TO MONITOR AND CONTINUE WITH PLAN OF CARE.
[2017-08-02 08:14] VITALS: BP 158/68
--- NOTE | 2017-08-02 09:02 | EC ---
PATIENT:AYLIN ALDANA DATE OF SERVICE: 07/22/17 SEX: M MEDICAL RECORD: [id number] DATE OF : [birth year] LOCATION:D.M2 D.213 AGE OF PATIENT: 47 ADMISSION DATE: 07/22/17 REFERRING PHYSICIAN: INTERPRETING PHYSICIAN: CHAZ BOYD MD ECHOCARDIOGRAM REPORT ECHO CHARGES 4 ECHO COMPLETE CLINICAL DIAGNOSIS: AFIB ECHOCARDIOGRAPHIC MEASUREMENTS (adult normal given) AC root (d.<3.7cm) 3.6 cm LV Septum d (<1.2 cm> 1.5 cm Valve Excursion 1.9 cm LV Septum (systole) 1.6 cm Left Atria (s.<4.0cm> 4.5 cm LVPW d(<1.2cm) 1.3 cm RV (d.<2.3cm) 4.9 cm LVPW (sytole) 1.4 cm LV diastole(<5.6CM) 6.5 cm MV E-F(>70mm/sec) cm LV systole 5.0 cm LVOT Diameter 1.7 cm MV exc.(>10mm) cm Est.ejection fraction (50-75%) % Pericardial Effusion N DOPPLER: LVIT cm/sec A 75.0 cm/sec E 101 cm/sec LA cm/sec RVSP 26 mmHg LVOT cm/sec AOP1/2T m/s Asc. Ao cm/sec RVOT 82 cm/sec RA cm/sec PA 127 cm/sec AV Gradient Peak mmHg AV Mean mmHg AV Area cm MV Gradient Peak 5.36 mmHg MV Mean 1.66 mmHg MV Area cm COMMENTS: Core Drill Operator: Iraida BEJARANO [facility]: [address] Dr. Boyd TAPE# PACS DATE OF SERVICE: 07/23/2017 DATE OF SERVICE: 07/23/2017 ECHOCARDIOGRAM FINDINGS: 1. Left ventricular chamber sizes are mildly dilated. Left ventricular systolic function is lower limits of normal at 45% to 50%. 2. Left atrium is enlarged at 4.5 cm. Right atrium and right ventricular ECHOCARDIOGRAM REPORT [id number] AYLIN ALDANA chamber sizes are as well mildly dilated. 3. Valvular structures have normal structure and motion. 4. Doppler interrogation only reveals mild tricuspid regurgitation. No other valvular insufficiency or stenosis. Pulmonary systolic pressure is normal estimated at 26 mmHg. 5. No evidence of pericardial effusion or left ventricular thrombus. TRANSINT:[id number] Voice Confirmation ID: [id number] DOCUMENT ID: [id number] CHAZ BOYD MD at 0902 CC: [id number] DICTATION DATE: 07/23/171708 HOTHOUSE WORKER: 07/23/17 1854 ADM IN [place] [id number] [place] [address]
[2017-08-02 12:05] VITALS: BP 110/60
--- NOTE | 2017-08-02 13:41 | NUR ---
ANTHONY CLEMENTE CAME TO INFORM ME THAT PT STATES TO HER (BRYN DID NOT SEE THIS HAPPEN) THAT PT WAS COMING FROM HIS BATHROOM BACK TO HIS BED AND PT SAID HE PUT ALL HIS WEIGHT ON THE SIDE RAIL AND SIDE RAIL SNAPPED DOWN AND HE SOMEHOW FELL. I WENT TO CHECK ON PT AND PT INFORMED ME THAT HE WAS GOING BACK TO BED FROM BATHROOM AND PUT HIS WEIGHT ON SIDE RAIL AND SIDE RAILS SNAPPED DOWN AND PT SAID HE WAS JAIL ON BED AND KNEES HIT THE FLOOR. I ASKED PT IF HE SLID DOWN ON HIS KNEES AND HE STATES "I GUESS SO, ITS NOT A BIG DEAL I JUST WANTED TO LET YOU KNOW". I ASKED PT IF HE HIT HIS HEAD OR ANYTHING AND PT STATES "NO". NON-SKID SOCKS ARE ON AND YELLOW ID BAND IS ON. WILL CONTINUE TO MONITOR.
[2017-08-02] MEDS ORDERED: CARDIZEM60 MG PO (14:15)
[2017-08-02] MEDS ORDERED: XARELTO20 MG PO (14:15)
[2017-08-02] MEDS ORDERED: NIFEREX-150 CAP1 CA3 PO (14:16)
[2017-08-02] MEDS ORDERED: BETAPACE 120 M120 MG PO (14:16)
[2017-08-02] MEDS ORDERED: LASIX40 MG PO (14:18)
[2017-08-02] MEDS ORDERED: K-DUR20 MEQ PO (14:18)
[2017-08-02] MEDS ORDERED: FERROUS SULFAT325 MG PO (15:51)
--- NOTE | 2017-08-02 16:15 | NUR ---
Patient Name: AYLIN ALDANA Encounter No: [id number] : 1970 Primary Insurance: MEDICAID [facility] DC Date: Planned Disposition: Home DCP follow-up note: CM RECEIVED HOME HEALTH ORDER, MET WITH PT IN ROOM TO DISCUSS DISCHARGE NEEDS AND PLANNING. CM DISCUSSED AVAILABILITY OF HOME HEALTH, REHAB SERVICES AND MEDICAL EQUIPMENT. PT DENIES DISCHARGE NEEDS, DECLINES HOME HEALTH, REPORTS ABILITY TO CALL HIS PCP IF HE CHANGES HIS MIND. ROOMMATE TO TRANSPORT HOME AT DISCHARGE. INSERTER OPERATOR NOTIFIED. Cortes Pierson, CASE MANAGEMENT
--- NOTE | 2017-08-02 16:48 | NUR ---
D/C INSTRUCTIONS EXPLAINED TO PT. D/C PAPERWORK SIGNED BY PT AND PLACED IN CHART. IV TO LEFT FOREARM REMOVED WITH CATH TIP INTACT (ASSISTANCE FROM [employer], API ARCHITECT). COVERED SITE WITH 2X2 GAUZE PADS AND SECURED WITH TAPE. HEART MONITOR REMOVED AND RETURNED TO [facility] IN TELEMETRY. PT IS AWAITING ROOMATE TO COME AND GET HIM. WILL CONTINUE TO MONITOR.
--- NOTE | 2017-08-02 17:44 | NUR ---
PT D/C VIA WHEELCHAIR.
[2017-08-03 08:19] LABS: FOLATE (FOLIC ACID) - SERUM 8.8 ng/mL (>3.0)
== END 2017-08-02 17:47 | disposition home or self-care (01) | DRG 291 ==
LOC: D.ER 11:09 → D.M2 16:36 → D.ICU 07-25 18:26 → D.M2 07-27 12:04
PROVIDERS: Family Medicine; Family Medicine Adult Medicine; Internal Medicine; Internal Medicine Nephrology; Nurse Practitioner Family; ADMIT Emergency Medicine
DX: I13.0 Hypertensive heart and chronic kidney disease with heart failure and stage 1 through stage 4 chronic kidney disease, or unspecified chronic kidney disease (principal); I50.23 Acute on chronic systolic (congestive) heart failure; N17.9 Acute kidney failure, unspecified; E87.1 Hypo-osmolality and hyponatremia; N18.9 Chronic kidney disease, unspecified; I42.9 Cardiomyopathy, unspecified; I48.2 Chronic atrial fibrillation; F12.90 Cannabis use, unspecified, uncomplicated; F15.90 Other stimulant use, unspecified, uncomplicated

== ENCOUNTER 2017-11-12 10:10 | Emergency (ER) | payer MEDICAID ==
[2017-07-26 10:43] VITALS: BMI 39.3
[~2017-11-12 10:10] MED LIST changes: +ASPIRIN81 MG PO; +BETAPACE 120 M120 MG PO; +FERROUS SULFAT325 MG PO; +METOLAZONE5 MG PO; +NIFEREX-150 CAP1 CA3 PO
[2017-11-12 11:04] LABS: BASOPHILS 0.5 % (0-2); EOSINOPHILS 1.8 % (0-7); HEMATOCRIT 27.8 % (42.0-54.0); HEMOGLOBIN 8.1 g/dL (13.5-17.5); IMMATURE GRANULOCYTES 0.1 % (0-5); LYMPHOCYTES 12.5 % (15-50); MCH 21.9 pg (26.0-34.0); MCHC 29.1 g/dL (31.0-37.0); MCV 75.1 fL (80.0-100.0); MEAN PLATELET VOLUME 8.5 fL (7.4-10.4); MONOCYTES 8.1 % (2-11); RDW 17.5 % (11.5-14.5)
[2017-11-12 11:05] LABS: PLATELET COUNT 241 10x3/uL (130-400)
[2017-11-12 11:14] LABS: ALBUMIN 2.7 g/dL (3.4-5.0); BILIRUBIN - TOTAL 0.4 mg/dL (0.2-1.3); CALCIUM 8.3 mg/dL (8.5-10.1); CARBON DIOXIDE 24.7 mmol/L (21.0-32.0); POTASSIUM - SERUM 3.7 mmol/L (3.5-5.1); PROTEIN - SERUM 7.1 g/dL (6.4-8.2)
[2017-11-12 13:18] LABS: APPEARANCE CLEAR (CLEAR); BACTERIA FEW /hpf (NONE SEEN); BILIRUBIN NEGATIVE (NEGATIVE); COLOR STRAW (YELLOW); EPITHELIAL CELLS OCC /hpf (0-5); GLUCOSE NEGATIVE (NEGATIVE); KETONE NEGATIVE (NEGATIVE); NITRITE NEGATIVE (NEGATIVE); PROTEIN 2+ mg/dL (NEGATIVE); RED CELLS - URINE OCC /hpf (0-5); UROBILINOGEN NORMAL (NORMAL); WHITE CELLS - URINE 0-5 /hpf (0-5)
[2017-11-12 13:19] LABS: MUCUS <1+ /lpf (NONE SEEN)
== END 2017-11-12 13:30 | disposition home or self-care (01) ==
LOC: D.ER 10:10
PROVIDERS: Emergency Medicine
DX: I50.9 Heart failure, unspecified (principal); E66.9 Obesity, unspecified; I48.2 Chronic atrial fibrillation; I10 Essential (primary) hypertension; I12.9 Hypertensive chronic kidney disease with stage 1 through stage 4 chronic kidney disease, or unspecified chronic kidney disease; N18.9 Chronic kidney disease, unspecified; F17.200 Nicotine dependence, unspecified, uncomplicated

== ENCOUNTER 2018-03-08 00:56 | Inpatient (IN) | payer MEDICAID ==
[2018-03-08] VITALS (14 sets, daily range): BP systolic 130–162; BP diastolic 70–102; Ht 172.7 cm; Wt 122.9 kg
[~2018-03-08] VITALS: Ht 172.7 cm; Wt 122.9 kg
[2018-03-08 01:46] LABS: BASOPHILS 0.3 % (0-2); EOSINOPHILS 1.6 % (0-7); HEMATOCRIT 30.3 % (42.0-54.0); HEMOGLOBIN 8.8 g/dL (13.5-17.5); IMMATURE GRANULOCYTES 0.2 % (0-5); LYMPHOCYTES 11.5 % (15-50); MCH 21.9 pg (26.0-34.0); MCV 75.4 fL (80.0-100.0); MEAN PLATELET VOLUME 8.5 fL (7.4-10.4); MONOCYTES 11.1 % (2-11); NEUTROPHILS 75.3 % (40-80); PLATELET COUNT 238 10x3/uL (130-400); RBC 4.02 10x6/uL (4.20-6.10); RDW 19.6 % (11.5-14.5); WBC 10.3 10x3/uL (4.8-10.8)
[2018-03-08 01:55] LABS: APTT 23.7 SECONDS (22.8-39.4); INR 1.11 (0.85-1.17); PROTIME 13.9 SECONDS (11.6-15.0)
[2018-03-08 01:57] LABS: D-DIMER-QUANTITATIVE 3.1 ug/mLFEU (0.20-0.54)
[2018-03-08 02:01] LABS: ALBUMIN 2.9 g/dL (3.4-5.0); ALKALINE PHOSPHATASE 164 U/L (46-116); ALT (SGPT) 16 U/L (10-68); BILIRUBIN - TOTAL 0.36 mg/dL (0.2-1.3); CALC OSMOLALITY 287 mosm/kg (275-300); CALCIUM 8.1 mg/dL (8.5-10.1); CARBON DIOXIDE 26.2 mmol/L (21.0-32.0); CHLORIDE - SERUM 103 mmol/L (98-107); CREATININE - SERUM 2.9 mg/dL (0.6-1.3); GLUCOSE 81 mg/dL (74-106); PROTEIN - SERUM 7.6 g/dL (6.4-8.2); SODIUM 138 mmol/L (136-145); UREA NITROGEN 50 mg/dL (7-18); eGFR NON AFRICAN AMERICAN 25 mL/min (90-120)
[2018-03-08 02:13] LABS: CKMB 3.1 U/L (0.0-3.6); CREATINE KINASE 62 UL (21-232); PRO BNP 11631 pg/mL (0-125); TROPONIN-I 0.022 ng/mL (0.000-0.060)
[2018-03-08 06:45] LABS: BASOPHILS 0.5 % (0-2); EOSINOPHILS 1.9 % (0-7); HEMATOCRIT 31.7 % (42.0-54.0); HEMOGLOBIN 9.1 g/dL (13.5-17.5); IMMATURE GRANULOCYTES 0.3 % (0-5); LYMPHOCYTES 13.1 % (15-50); MCH 21.6 pg (26.0-34.0); MCHC 28.7 g/dL (31.0-37.0); MCV 75.1 fL (80.0-100.0); MEAN PLATELET VOLUME 8.4 fL (7.4-10.4); MONOCYTES 10.8 % (2-11); NEUTROPHILS 73.4 % (40-80); PLATELET COUNT 218 10x3/uL (130-400); RBC 4.22 10x6/uL (4.20-6.10); RDW 19.6 % (11.5-14.5); WBC 9.3 10x3/uL (4.8-10.8)
[2018-03-08 07:51] LABS: CALC OSMOLALITY 293 mosm/kg (275-300); CARBON DIOXIDE 25.1 mmol/L (21.0-32.0); CHLORIDE - SERUM 104 mmol/L (98-107); CKMB 3.3 U/L (0.0-3.6); CREATINE KINASE 59 UL (21-232); CREATININE - SERUM 2.8 mg/dL (0.6-1.3); GLUCOSE 94 mg/dL (74-106); POTASSIUM - SERUM 4.2 mmol/L (3.5-5.1); SODIUM 141 mmol/L (136-145); TROPONIN-I 0.026 ng/mL (0.000-0.060); UREA NITROGEN 49 mg/dL (7-18); eGFR NON AFRICAN AMERICAN 26 mL/min (90-120)
[2018-03-08 12:08] LABS: % SATURATION 3 % (15-55); IRON 17 ug/dl (35-150); TOTAL IRON BIND CAPACITY 449 ug/dl (260-445); UNSAT IRON BIND CAPACITY 432 ug/dl (150-375)
[2018-03-08 12:25] LABS: FERRITIN 17 ng/mL (3-244); LDH 217 U/L (85-227)
[2018-03-08 20:01] LABS: UDS - AMPHET POSITIVE QUAL (NEGATIVE); UDS - BARB NEGATIVE QUAL (NEGATIVE); UDS - BENZO NEGATIVE QUAL (NEGATIVE); UDS - COCAINE NEGATIVE QUAL (NEGATIVE); UDS - OPIATE NEGATIVE QUAL (NEGATIVE); UDS - PCP NEGATIVE QUAL (NEGATIVE); UDS - THC POSITIVE QUAL (NEGATIVE)
[2018-03-09] VITALS: BP 104/61
[2018-03-09 07:08] LABS: BASOPHILS 0.2 % (0-2); EOSINOPHILS 1.8 % (0-7); HEMATOCRIT 28.1 % (42.0-54.0); HEMOGLOBIN 9.1 g/dL (13.5-17.5); IMMATURE GRANULOCYTES 0.1 % (0-5); LYMPHOCYTES 11.4 % (15-50); MCH 24.8 pg (26.0-34.0); MCHC 32.4 g/dL (31.0-37.0); MCV 76.6 fL (80.0-100.0); MEAN PLATELET VOLUME 8.6 fL (7.4-10.4); MONOCYTES 11.2 % (2-11); NEUTROPHILS 75.3 % (40-80); PLATELET COUNT 217 10x3/uL (130-400); RBC 3.67 10x6/uL (4.20-6.10); RDW 19.4 % (11.5-14.5); WBC 8.4 10x3/uL (4.8-10.8)
[2018-03-09 07:14] LABS: ANION GAP 13.3 mmol/L (8-16); CALCIUM 8.6 mg/dL (8.5-10.1); CARBON DIOXIDE 26.1 mmol/L (21.0-32.0); CREATININE - SERUM 2.7 mg/dL (0.6-1.3); POTASSIUM - SERUM 4.4 mmol/L (3.5-5.1)
[2018-03-09 08:17] LABS: FOLATE (FOLIC ACID) - SERUM 8.7 ng/mL (>3.0)
[2018-03-09 09:06] VITALS: BP 125/90
[2018-03-09 13:26] VITALS: BP 141/92
[2018-03-09 17:31] VITALS: BP 150/97
[2018-03-09 21:05] VITALS: BP 142/84
[2018-03-10 01:36] VITALS: BP 121/61
[2018-03-10 06:09] VITALS: BP 144/87
[2018-03-10 06:31] LABS: BASOPHILS 0.6 % (0-2); EOSINOPHILS 1.1 % (0-7); HEMATOCRIT 30.8 % (42.0-54.0); HEMOGLOBIN 8.6 g/dL (13.5-17.5); IMMATURE GRANULOCYTES 0.1 % (0-5); MCH 21.3 pg (26.0-34.0); MCHC 27.9 g/dL (31.0-37.0); MCV 76.4 fL (80.0-100.0); MEAN PLATELET VOLUME 8.7 fL (7.4-10.4); NEUTROPHILS 77.2 % (40-80); RBC 4.03 10x6/uL (4.20-6.10); RDW 19.3 % (11.5-14.5); WBC 8.4 10x3/uL (4.8-10.8)
[2018-03-10 06:39] LABS: PLATELET COUNT 269 10x3/uL (130-400)
[2018-03-10 06:49] LABS: ANION GAP 16.3 mmol/L (8-16); CALCIUM 8.4 mg/dL (8.5-10.1); CARBON DIOXIDE 23.4 mmol/L (21.0-32.0); CREATININE - SERUM 2.6 mg/dL (0.6-1.3); POTASSIUM - SERUM 4.7 mmol/L (3.5-5.1)
[2018-03-10 09:08] VITALS: BP 155/89
[2018-03-10 12:38] VITALS: BP 130/86
[2018-03-10 16:46] VITALS: BP 147/93
[2018-03-10 20:41] VITALS: BP 149/99
[2018-03-11 00:31] VITALS: BP 134/89
[2018-03-11 06:04] VITALS: BP 152/92
[2018-03-11 06:50] LABS: BASOPHILS 0.5 % (0-2); EOSINOPHILS 1.5 % (0-7); HEMATOCRIT 31.9 % (42.0-54.0); HEMOGLOBIN 8.9 g/dL (13.5-17.5); IMMATURE GRANULOCYTES 0.2 % (0-5); LYMPHOCYTES 11.5 % (15-50); MCH 21.5 pg (26.0-34.0); MCHC 27.9 g/dL (31.0-37.0); MCV 77.2 fL (80.0-100.0); MEAN PLATELET VOLUME 8.4 fL (7.4-10.4); MONOCYTES 10.2 % (2-11); NEUTROPHILS 76.1 % (40-80); PLATELET COUNT 268 10x3/uL (130-400); RBC 4.13 10x6/uL (4.20-6.10); RDW 19.7 % (11.5-14.5); WBC 8.1 10x3/uL (4.8-10.8)
[2018-03-11 07:10] LABS: ANION GAP 12.4 mmol/L (8-16); CALCIUM 8.6 mg/dL (8.5-10.1); CARBON DIOXIDE 27.3 mmol/L (21.0-32.0); CREATININE - SERUM 2.8 mg/dL (0.6-1.3); POTASSIUM - SERUM 4.7 mmol/L (3.5-5.1)
[2018-03-11 07:53] VITALS: BP 132/81
[2018-03-11 11:00] VITALS: BP 151/83
[2018-03-11 16:14] VITALS: BP 149/104
== END 2018-03-11 18:09 | disposition home or self-care (01) | DRG 291 ==
LOC: D.ER 00:56 → D.EDHOLD 02:54 → D.M2 02:54
PROVIDERS: Family Medicine; Internal Medicine Nephrology
DX: I13.0 Hypertensive heart and chronic kidney disease with heart failure and stage 1 through stage 4 chronic kidney disease, or unspecified chronic kidney disease (principal); I50.23 Acute on chronic systolic (congestive) heart failure; I26.99 Other pulmonary embolism without acute cor pulmonale; J18.9 Pneumonia, unspecified organism; J96.01 Acute respiratory failure with hypoxia; N17.9 Acute kidney failure, unspecified; Z68.41 Body mass index [BMI] 40.0-44.9, adult; N18.9 Chronic kidney disease, unspecified; I48.2 Chronic atrial fibrillation; Z91.19 Patient's noncompliance with other medical treatment and regimen; E66.01 Morbid (severe) obesity due to excess calories; D50.9 Iron deficiency anemia, unspecified; F15.90 Other stimulant use, unspecified, uncomplicated; F12.90 Cannabis use, unspecified, uncomplicated; Z86.73 Personal history of transient ischemic attack (TIA), and cerebral infarction without residual deficits

== ENCOUNTER 2018-12-22 12:05 | Inpatient (IN) | payer MEDICAID ==
[~2018-12-22] VITALS: Ht 172.7 cm; Wt 120.5 kg
--- NOTE | 2018-12-22 12:25 | NUR ---
PT ARRIVED WITH DIRT AND DRIED FECES ON HIS SKIN AND CLOTHING. THIS NURSE AND FELLOW RN ATTEMPTED TO CLEANSE PT. SOILED CLOTHING REMOVED AND PLACED IT PT BELONGING BAG.
--- NOTE | 2018-12-22 12:36 | NUR ---
PT LEFT ED VIA STRETCHER WITH PORTABLE O2, BEING TAKEN TO X-RAY DEPT. NO SIGNS OF DISTRESS NOTED WHEN LEAVING.
[2018-12-22 13:07] VITALS: BP 137/102
[2018-12-22 13:24] LABS: BASOPHILS 0.4 % (0-2); EOSINOPHILS 1.2 % (0-7); HEMATOCRIT 29.8 % (42.0-54.0); IMMATURE GRANULOCYTES 0.2 % (0-5); LYMPHOCYTES 12.8 % (15-50); MCH 24.7 pg (26.0-34.0); MCHC 30.2 g/dL (31.0-37.0); MCV 81.6 fL (80.0-100.0); MEAN PLATELET VOLUME 8.6 fL (7.4-10.4); MONOCYTES 9.4 % (2-11); RBC 3.65 10x6/uL (4.20-6.10); RDW 17.9 % (11.5-14.5); WBC 9.1 10x3/uL (4.8-10.8)
[2018-12-22 13:31] LABS: PLATELET COUNT 199 10x3/uL (130-400)
[2018-12-22 13:47] LABS: ANION GAP 17.2 mmol/L (8-16); BILIRUBIN - TOTAL 0.47 mg/dL (0.2-1.3); CARBON DIOXIDE 22.4 mmol/L (21.0-32.0); CREATININE - SERUM 3.5 mg/dL (0.6-1.3); POTASSIUM - SERUM 3.6 mmol/L (3.5-5.1); PROTEIN - SERUM 7.8 g/dL (6.4-8.2); TROPONIN-I 0.022 ng/mL (0.000-0.060)
[2018-12-22 13:50] LABS: CALCIUM 6.6 mg/dL (8.5-10.1)
--- NOTE | 2018-12-22 16:23 | NUR ---
ROOM [id number] ASSIGNED AT 1521. ED NURSE ATTEMPTED TO CALL REPORT AT 1550. RECEIVING NURSE UNAVAILABLE.
--- NOTE | 2018-12-22 16:44 | NUR ---
TOLD RECEIVING NURSE BROWNE, THAT ORDERED MEDICATIONS BUMEX AND LISINOPRIL WERE NOT GIVEN IN ED D/T NOT BEING IN PYXIS. ROOM ASSIGNED AT 1521 SO MEDICATIONS WERE NOT REQUESTED FROM PHARMACY.
[2018-12-22 17:39] VITALS: BP 131/74; BMI 36.5
--- NOTE | 2018-12-22 17:48 | NUR ---
ARRIVED FROM ER VIA STRETCHER. AWAKE AND ALERT. SCROTUM IS VERY SWOLLEN. PT HAS A PINPOINT HEALED WOUND ON L THIGH THAT HE STATES HAS MRSA. NO DRAINAGE. LION LOWER EXTREMITIES ARE BROWN AND SCALY. SEE ASSESSMENT FOR FURTHER EVAL.
--- NOTE | 2018-12-22 20:00 | NUR ---
RESUMING PT CARE. PT LAYING IN BED WITH EYES CLOSED RESTING COMFORTABLY. NO ACUTE S/S OF DISTRESS NOTED AT THIS TIME. BED IN LOW POSITION WITH CALL LIGHT IN REACH. SIDE RAILS UP X 2. WILL CONTINUE TO MONITOR PT AND FOLLOW PLAN OF CARE.
[2018-12-22 21:14] VITALS: BP 149/98
[2018-12-23 03:53] VITALS: BP 123/69
--- NOTE | 2018-12-23 05:21 | NUR ---
BLADDER WAS EMPTY PRIOR TO BLADDER SCAN. BLADDER SCAN SHOWED 42 ML.
[2018-12-23 06:20] LABS: ALBUMIN 2.7 g/dL (3.4-5.0); ANION GAP 17.8 mmol/L (8-16); BASOPHILS 0.4 % (0-2); BILIRUBIN - TOTAL 0.56 mg/dL (0.2-1.3); CARBON DIOXIDE 22.7 mmol/L (21.0-32.0); CREATININE - SERUM 3.2 mg/dL (0.6-1.3); EOSINOPHILS 1.3 % (0-7); HEMATOCRIT 28.6 % (42.0-54.0); HEMOGLOBIN 8.8 g/dL (13.5-17.5); IMMATURE GRANULOCYTES 0.3 % (0-5); MAGNESIUM - SERUM 1.4 mg/dL (1.8-2.4); MCH 24.8 pg (26.0-34.0); MCHC 30.8 g/dL (31.0-37.0); MCV 80.6 fL (80.0-100.0); MONOCYTES 9.5 % (2-11); NEUTROPHILS 70.5 % (40-80); PLATELET COUNT 214 10x3/uL (130-400); POTASSIUM - SERUM 3.5 mmol/L (3.5-5.1); PROTEIN - SERUM 6.8 g/dL (6.4-8.2); RBC 3.55 10x6/uL (4.20-6.10); RDW 17.9 % (11.5-14.5); WBC 7.6 10x3/uL (4.8-10.8)
[2018-12-23 06:36] LABS: CALCIUM 6.8 mg/dL (8.5-10.1)
--- NOTE | 2018-12-23 07:25 | NUR ---
RECEIVED REPORT THAT CALCIUM IS 6.8, PAGED ISABEL PIZARRO.
[2018-12-23 08:00] VITALS: BP 124/82
--- NOTE | 2018-12-23 08:02 | NUR ---
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 HE SAYS HE GETS DELUSIONAL AT TIMES. DID LET HIM KNOW THE C-PAP HAS BEEN ORDERED, NOT THE HIS HOME C-PAP, BUT AN INHOUSE C-PAP.
[2018-12-23 11:52] VITALS: BP 116/70
--- NOTE | 2018-12-23 11:55 | NUR ---
COLLECTED URINE FOR UDS. CULINARY DIRECTOR DID RUN IT TO LAB.
[2018-12-23 12:16] LABS: UDS - AMPHET NEGATIVE QUAL (NEGATIVE); UDS - BARB NEGATIVE QUAL (NEGATIVE); UDS - BENZO NEGATIVE QUAL (NEGATIVE); UDS - COCAINE NEGATIVE QUAL (NEGATIVE); UDS - OPIATE NEGATIVE QUAL (NEGATIVE); UDS - PCP NEGATIVE QUAL (NEGATIVE); UDS - THC NEGATIVE QUAL (NEGATIVE)
[2018-12-23 12:17] VITALS: Ht 172.7 cm; Wt 120.5 kg
[2018-12-23] MEDS ORDERED: ATIVAN0.5 MG PO (13:12)
[2018-12-23] MEDS ORDERED: BUMEX2 MG PO (13:12)
[2018-12-23] MEDS ORDERED: ALDACTONE25 MG PO (13:13)
[2018-12-23] MEDS ORDERED: TOPROL XL25 MG PO (13:14)
--- NOTE | 2018-12-23 13:15 | NUR ---
CALLED [facility] ON [address] AND RECEIVED MEDICATION AND DOSAGES.
--- NOTE | 2018-12-23 13:16 | NUR ---
THE PATIENT C/O PAIN, HE SAYS HE DOES NOT TAKE PAIN MEDICATIONS, HE SAYS HE IS HURTING ALL OVER (GENERALIZED) HE SAYS HE HURTS WHEN HIS EDEMA GOES DOWN. PAGE ISABEL MOORE APN.
--- NOTE | 2018-12-23 14:18 | NUR ---
ISABEL MOORE APN WENT INTO ASSESS HIM AND HE DID NOT AWAKEN. HE IS C/O CRAMPING IN HIS HANDS. DID ASK SHA THE SEARCH STRATEGIST TO MAKE HIM A HEAT PACK FOR HIS HANDS.
[2018-12-23 15:05] VITALS: BP 118/71
--- NOTE | 2018-12-23 15:55 | NUR ---
THE PATIENT IS YELLING OUT, SAYING "HELLO, I NEED A URINAL." DID POUR HIS OTHER URINAL OUT AND DID PROVIDE HIM HIS SECOND URINAL THAT HAD FALLEN OFF OF HIS TABLE.
--- NOTE | 2018-12-23 18:02 | NUR ---
THE PATIENT IS LAYING IN HIS BED WITH HIS EYES CLOSED WITH EVEN UNLABORED RESPIRATIONS.
--- NOTE | 2018-12-23 19:15 | NUR ---
RECEIVED REPORT, WILL ASSUME CARE OF PT, PT IS SLEEPING, BED IS LOW, SRX2, CALL LIGHT IN REACH, WILL CONTINUE PLAN OF CARE
[2018-12-23 20:32] VITALS: BP 126/86
--- NOTE | 2018-12-23 21:35 | NUR ---
OT NOTE: PT COMPLETED TOILETING TASK USING URINAL WITH SET UP. PT COMPLETED FACE WASHING WITH SET UP. PT COMPLETED BUE AROM TASKS. PT COMPLETED BED MOB SIDE ROLLING WITH SBA USING SIDE RAIL. PT GROGGY AND REQUIRED MAX CUES. 330/4 THANK YOU, TYLOR HLOCOMB
[2018-12-24] VITALS (7 sets, daily range): BP systolic 112–162; BP diastolic 60–93
--- NOTE | 2018-12-24 01:32 | NUR ---
PT YELLING OUT IN ROOM, HE HAD SPILLED URINE ALL OVER HIM, HE SHOWERED AND BED WAS CHANGED
--- NOTE | 2018-12-24 01:48 | NUR ---
WENT TO DO A CHECK ON BIPAP ON PATIENT AND HE HAD TAKEN IT OFF, UNPLUGGED IT AND TURNED IT OFF. IN PROCESS OF TAKING IT OFF, HE HAD BROKEN THE MASK. PIECES OF THE MASK WERE ON TOP OF THE MACHINE. WHEN I PUT THE BIPAP ON THE PATIENT I EDUCATED HIM ON IF HE NEEDED TO TAKE IT OFF THAT HE WAS TO PUSH HIS CALL LIGHT AND TELL THE NURSE SO THAT I COULD COME OVER AND TAKE IT OFF FOR HIM, HE STATED THAT HE UNDERSTOOD.
--- NOTE | 2018-12-24 02:56 | NUR ---
I have reviewed this patient and I concur with the Shift Assessment completed by the Licensed Practical Nurse today this shift.
[2018-12-24 06:02] LABS: BASOPHILS 0.6 % (0-2); EOSINOPHILS 1.5 % (0-7); HEMATOCRIT 29.4 % (42.0-54.0); HEMOGLOBIN 9.1 g/dL (13.5-17.5); IMMATURE GRANULOCYTES 0.4 % (0-5); LYMPHOCYTES 15.6 % (15-50); MCH 24.9 pg (26.0-34.0); MCV 80.3 fL (80.0-100.0); MEAN PLATELET VOLUME 8.9 fL (7.4-10.4); MONOCYTES 10.9 % (2-11); PLATELET COUNT 231 10x3/uL (130-400); RBC 3.66 10x6/uL (4.20-6.10); WBC 8.1 10x3/uL (4.8-10.8)
[2018-12-24 06:04] LABS: INR 1.19 (0.85-1.17); PROTIME 14.5 SECONDS (11.6-15.0)
[2018-12-24 06:24] LABS: ALBUMIN 2.4 g/dL (3.4-5.0); ANION GAP 15.4 mmol/L (8-16); BILIRUBIN - TOTAL 0.43 mg/dL (0.2-1.3); CARBON DIOXIDE 25.4 mmol/L (21.0-32.0); CREATININE - SERUM 3.1 mg/dL (0.6-1.3); MAGNESIUM - SERUM 1.4 mg/dL (1.8-2.4); POTASSIUM - SERUM 3.8 mmol/L (3.5-5.1); PROTEIN - SERUM 6.6 g/dL (6.4-8.2)
[2018-12-24 06:51] LABS: CALCIUM 6.6 mg/dL (8.5-10.1)
--- NOTE | 2018-12-24 09:58 | NUR ---
MORNING ASSESMENT COMPLETE. SEE ASSESSMENT FLOWSHEET FOR FURTHER DETIALS. PT LYING IN BED. CONFUSION NOTED. CL IN REACH. SIDE RAILS UP X3 FOR PT SAEFTY. BED IN LOWEST POSIOTION
[2018-12-24 14:08] LABS: % SATURATION 6 % (15-55); IRON 22 ug/dl (35-150); TOTAL IRON BIND CAPACITY 334 ug/dl (260-445); UNSAT IRON BIND CAPACITY 312 ug/dl (150-375)
[2018-12-24 17:12] LABS: APPEARANCE CLEAR (CLEAR); COLOR STRAW (YELLOW); NITRITE NEGATIVE (NEGATIVE)
[2018-12-24 17:13] LABS: BILIRUBIN NEGATIVE (NEGATIVE); GLUCOSE NEGATIVE (NEGATIVE); KETONE NEGATIVE (NEGATIVE); PROTEIN TRACE mg/dL (NEGATIVE); UROBILINOGEN NORMAL (NORMAL)
[2018-12-24 17:17] LABS: CREATININE - URINE 7.6 mg/dL (30-125); PRO/CRE RATIO URINE 4.2 mg/g; PROTEIN - URINE 31.6 mg/dL (0.0-11.9)
--- NOTE | 2018-12-24 19:30 | NUR ---
RECEIVED REPORT, WILL ASSUME CARE OF PT, PT IS SLEEPING, BED IS LOW, SRX2, CALL LIGHT IN REACH, WILL CONTINUE PLAN OF CARE
--- NOTE | 2018-12-25 03:37 | NUR ---
I have reviewed this patient and I concur with the Shift Assessment completed by the Licensed Practical Nurse today this shift.
[2018-12-25 05:51] VITALS: BP 164/74
[2018-12-25 06:30] LABS: BASOPHILS 0.5 % (0-2); EOSINOPHILS 1.3 % (0-7); HEMATOCRIT 32.4 % (42.0-54.0); HEMOGLOBIN 10.1 g/dL (13.5-17.5); IMMATURE GRANULOCYTES 0.3 % (0-5); LYMPHOCYTES 15.6 % (15-50); MCH 24.9 pg (26.0-34.0); MCHC 31.2 g/dL (31.0-37.0); MCV 79.8 fL (80.0-100.0); MEAN PLATELET VOLUME 8.4 fL (7.4-10.4); NEUTROPHILS 71.3 % (40-80); PLATELET COUNT 233 10x3/uL (130-400); RBC 4.06 10x6/uL (4.20-6.10); RDW 17.9 % (11.5-14.5); WBC 7.7 10x3/uL (4.8-10.8)
[2018-12-25 06:36] LABS: ALBUMIN 2.5 g/dL (3.4-5.0); ANION GAP 13.7 mmol/L (8-16); BILIRUBIN - TOTAL 0.64 mg/dL (0.2-1.3); CALCIUM 7.1 mg/dL (8.5-10.1); CARBON DIOXIDE 28.3 mmol/L (21.0-32.0); CREATININE - SERUM 2.9 mg/dL (0.6-1.3); MAGNESIUM - SERUM 1.4 mg/dL (1.8-2.4); PROTEIN - SERUM 6.8 g/dL (6.4-8.2)
--- NOTE | 2018-12-25 07:30 | NUR ---
RECEIVED PT IN BED EYES CLOSED RESP UNLABORED SKIN W/D NAD NOTED WILL CONTINUE TO MONITOR
[2018-12-25 08:14] VITALS: BP 104/55
[2018-12-25 12:08] VITALS: BP 101/51
[2018-12-25 15:49] VITALS: BP 106/58
--- NOTE | 2018-12-25 20:20 | NUR ---
RECEIVED REPORT, WILL ASSUME CARE OF PT, PT IS SLEEPINF BED IS LOW, SRX2, CALL LIGHT IN REACH, WILL CONTINUE PLAN OF CARE
[2018-12-25 20:33] VITALS: BP 107/70
[2018-12-26 00:33] VITALS: BP 113/65
--- NOTE | 2018-12-26 04:28 | NUR ---
I have reviewed this patient and I concur with the Shift Assessment completed by the Licensed Practical Nurse today this shift.
[2018-12-26 05:08] VITALS: BP 115/77
[2018-12-26 06:38] LABS: ALBUMIN 2.5 g/dL (3.4-5.0); ANION GAP 13.1 mmol/L (8-16); BILIRUBIN - TOTAL 0.57 mg/dL (0.2-1.3); CALCIUM 7.5 mg/dL (8.5-10.1); CARBON DIOXIDE 28.4 mmol/L (21.0-32.0); CREATININE - SERUM 2.9 mg/dL (0.6-1.3); MAGNESIUM - SERUM 1.8 mg/dL (1.8-2.4); POTASSIUM - SERUM 4.5 mmol/L (3.5-5.1); PROTEIN - SERUM 6.8 g/dL (6.4-8.2)
[2018-12-26 07:00] LABS: BASOPHILS 0.5 % (0-2); EOSINOPHILS 0.8 % (0-7); HEMATOCRIT 32.1 % (42.0-54.0); HEMOGLOBIN 9.9 g/dL (13.5-17.5); IMMATURE GRANULOCYTES 0.3 % (0-5); LYMPHOCYTES 13.9 % (15-50); MCH 24.4 pg (26.0-34.0); MCHC 30.8 g/dL (31.0-37.0); MCV 79.3 fL (80.0-100.0); MONOCYTES 12.1 % (2-11); NEUTROPHILS 72.4 % (40-80); PLATELET COUNT 249 10x3/uL (130-400); RBC 4.05 10x6/uL (4.20-6.10); RDW 17.8 % (11.5-14.5)
--- NOTE | 2018-12-26 07:35 | NUR ---
RECEIVED LAYING IN BED POSITIONED ON BACK WITH EYES CLOSED. OPENED EYES TO NAME. A/A/OX4. NO REQUESTS VOICED AT PRESENT TIME. ASSESSMENT COMPLETED AND WILL CONTINUE POC.
[2018-12-26 08:00] VITALS: BP 112/80
[2018-12-26 12:00] VITALS: BP 109/76
--- NOTE | 2018-12-26 14:02 | NUR ---
I have reviewed this patient and I concur with the Shift Assessment completed by the Licensed Practical Nurse today this shift.
--- NOTE | 2018-12-26 14:17 | NUR ---
Nutrition Follow Up: Renal diet with 100% intake of meals BM today Reviewed labs Attempted to visit with pt, pt is sleeping RD following
[2018-12-26 16:20] VITALS: BP 110/67
--- NOTE | 2018-12-26 16:46 | NUR ---
OT NOTE: PT COMPLETED SUPINE TO SIT WITH MIN A. PT COMPLETED ADL MOB WITH MIN A SECONDARY TO DECREASED VISION. PT COMPLETED TOILETING TASKS WITH SBA/CGA. [id number] THANK YOU, TYLOR HOLCOMB
[2018-12-26 20:00] VITALS: BP 118/64
--- NOTE | 2018-12-26 20:45 | NUR ---
EMPTY 400ML URINE FROM URINAL.
[2018-12-27] VITALS: BP 120/68
--- NOTE | 2018-12-27 03:49 | NUR ---
I have reviewed this patient and I concur with the Shift Assessment completed by the Licensed Practical Nurse today this shift.
[2018-12-27 04:00] VITALS: BP 127/75
[2018-12-27 07:00] LABS: BASOPHILS 0.5 % (0-2); EOSINOPHILS 1.4 % (0-7); HEMATOCRIT 30.3 % (42.0-54.0); HEMOGLOBIN 9.5 g/dL (13.5-17.5); IMMATURE GRANULOCYTES 0.2 % (0-5); LYMPHOCYTES 19.5 % (15-50); MCH 24.8 pg (26.0-34.0); MCHC 31.4 g/dL (31.0-37.0); MCV 79.1 fL (80.0-100.0); MONOCYTES 11.7 % (2-11); NEUTROPHILS 66.7 % (40-80); PLATELET COUNT 229 10x3/uL (130-400); RBC 3.83 10x6/uL (4.20-6.10); RDW 17.7 % (11.5-14.5); WBC 6.4 10x3/uL (4.8-10.8)
--- NOTE | 2018-12-27 07:23 | NUR ---
AM ROUNDS- PT IN BED RESTING COMFORTABLY WITH EYES CLOSED, EASILY AROUSES TO VOICE. PT A/O X4, RESP EVNE AND REGULAR ON 2L. LT HAND IV SL. MONITOR SHOWING SR 84. HERNIA NOTED TO ABD. PT BLIND TO LT EYE AND HAS POOR VISION TO RT EYE. PT DENIES ANY NEEDS AT THIS TIME. CALL LIGHT IN REACH, NAD NOTED, WILL CONTINUE PLAN OF CARE.
[2018-12-27 07:36] LABS: ALBUMIN 2.5 g/dL (3.4-5.0); ANION GAP 17.7 mmol/L (8-16); BILIRUBIN - TOTAL 0.56 mg/dL (0.2-1.3); CALCIUM 7.5 mg/dL (8.5-10.1); CARBON DIOXIDE 27.3 mmol/L (21.0-32.0); CREATININE - SERUM 3.1 mg/dL (0.6-1.3); MAGNESIUM - SERUM 1.7 mg/dL (1.8-2.4); PROTEIN - SERUM 6.7 g/dL (6.4-8.2)
--- NOTE | 2018-12-27 08:49 | NUR ---
AM MEDS GIVEN AT THIS TIME. LASIX AND K-DUR HELD DUE TO PT'S LOW BP. HELPED PT FILL OUT HIS MENU. PT DENIES ANY NEEDS AT THIS TIME. CALL LIGHT IN REACH, NAD NOTED, WILL CONTINUE TO MONITOR.
[2018-12-27 08:57] VITALS: BP 99/50
--- NOTE | 2018-12-27 11:46 | EC ---
PATIENT:AYLIN ALDANA DATE OF SERVICE: 12/22/18 SEX: M MEDICAL RECORD: [id number] DATE OF : [birth year] LOCATION:D.M2 D.213 AGE OF PATIENT: 48 ADMISSION DATE: 12/22/18 REFERRING PHYSICIAN: INTERPRETING PHYSICIAN: CHAZ BOYD MD ECHOCARDIOGRAM REPORT ECHO CHARGES 5 ECHO LIMITED Date: 12/23/18 CLINICAL DIAGNOSIS: AFIB ECHOCARDIOGRAPHIC MEASUREMENTS (adult normal given) AC root (d.<3.7cm) 3.9 cm LV Septum d (<1.2 cm> 2.0 cm Valve Excursion 1.6 cm LV Septum (systole) 2.2 cm Left Atria (s.<4.0cm> 4.5 cm LVPW d(<1.2cm) 1.6 cm RV (d.<2.3cm) 5.2 cm LVPW (sytole) 2.0 cm LV diastole(<5.6CM) 5.3 cm MV E-F(>70mm/sec) cm LV systole 3.9 cm LVOT Diameter cm MV exc.(>10mm) 1.5 cm Est.ejection fraction (50-75%) % DOPPLER: LVIT cm/sec A cm/sec E cm/sec LA cm/sec RVSP 40 mmHg LVOT cm/sec AOP1/2T m/s Asc. Ao cm/sec RVOT 80 cm/sec RA cm/sec PA 108 cm/sec AV Gradient Peak mmHg AV Mean mmHg AV Area cm MV Gradient Peak mmHg MV Mean mmHg MV Area cm COMMENTS: Cabinet Finisher: Iraida BEJARANO Facilitator: 1 Dr. Boyd TAPE# PACS Pericardial Effusion Y DATE OF SERVICE: FINDINGS: 1. Left ventricular chamber size is within normal limits. Left ventricular systolic function is normal. Overall ejection fraction estimated at 55%. 2. Left atrium is enlarged at 4.5 cm. Right atrium and right ventricular chamber sizes are as well mildly dilated. 3. Valvular structures have normal structure and motion. 4. Doppler interrogation reveals moderate tricuspid regurgitation, no other valvular insufficiency or stenosis. Pulmonary systolic pressure is estimated at ECHOCARDIOGRAM REPORT [id number] AYLIN ALDANA 40 mmHg. 5. No evidence of pericardial effusion or left ventricular thrombus. TRANSINT:[id number] Voice Confirmation ID: [id number] DOCUMENT ID: [id number] CHAZ BOYD MD at 1146 CC: [id number] DICTATION DATE: 12/23/18 1426 [place]: 12/24/18 0000 ADM IN [place] [id number] [facility], [facility]
[2018-12-27 11:59] VITALS: BP 129/75
--- NOTE | 2018-12-27 12:35 | NUR ---
PT RESTING COMFORTABLY IN BED, JUST FINISHED EATING LUNCH. PT DENIES ANY NEEDS AT THIS TIME. CALL LIGHT IN REACH, NAD NOTED, WILL CONTINUE TO MONITOR.
--- NOTE | 2018-12-27 14:57 | NUR ---
URINE SAMPLE COLLECTED AND TAKEN TO LAB AT THIS TIME.
[2018-12-27 15:42] LABS: APPEARANCE HAZY (CLEAR); BACTERIA MANY /hpf (NONE SEEN); BILIRUBIN NEGATIVE (NEGATIVE); COLOR YELLOW (YELLOW); GLUCOSE NEGATIVE (NEGATIVE); KETONE NEGATIVE (NEGATIVE); NITRITE NEGATIVE (NEGATIVE); PROTEIN TRACE mg/dL (NEGATIVE); RED CELLS - URINE 0-5 /hpf (0-5); UROBILINOGEN NORMAL (NORMAL)
[2018-12-27 16:11] VITALS: BP 115/64
[2018-12-27 20:00] VITALS: BP 102/64
--- NOTE | 2018-12-27 20:21 | NUR ---
OT NOTE: PT COMPLETED BED MOB WITH SPV. PT COMPLETED SIT TO STAND WITH CGA/MIN A. 530/602 THANK YOU, TYLOR HOLCOMB
--- NOTE | 2018-12-27 20:22 | NUR ---
OT NOTE: PT ASLEEP ALL AM...PT REPORTED THAT HE WAS USED TO WORKING NIGHTS AND SLEEPING DURING THE DAY. PT ABLE TO PERFORM BED MOB WITH SPV; SIT TO STAND WITH MIN ASSIST; GROOMING AND FEEDING WITH SET UP; TRANSFER WITH MIN ASSIST. (340/400) MAC FOFANA, OTR/L
--- NOTE | 2018-12-27 21:10 | NUR ---
PM MED ADMINISTERED ORDERED. CALL ALINET IN REACH.
[2018-12-28 00:30] VITALS: BP 108/70
--- NOTE | 2018-12-28 03:05 | NUR ---
REST QUIELTY IN BED, EYE CLOSE, CALL LIGHT IN REACH.
--- NOTE | 2018-12-28 04:11 | NUR ---
I have reviewed this patient and I concur with the Shift Assessment completed by the Licensed Practical Nurse today this shift.
[2018-12-28 05:00] VITALS: BP 124/79
[2018-12-28 05:03] LABS: BASOPHILS 0.3 % (0-2); EOSINOPHILS 1.3 % (0-7); HEMATOCRIT 29.2 % (42.0-54.0); HEMOGLOBIN 9.1 g/dL (13.5-17.5); IMMATURE GRANULOCYTES 0.1 % (0-5); LYMPHOCYTES 16.5 % (15-50); MCH 24.6 pg (26.0-34.0); MCHC 31.2 g/dL (31.0-37.0); MCV 78.9 fL (80.0-100.0); MEAN PLATELET VOLUME 8.4 fL (7.4-10.4); MONOCYTES 10.9 % (2-11); NEUTROPHILS 70.9 % (40-80); PLATELET COUNT 225 10x3/uL (130-400); RDW 17.4 % (11.5-14.5); WBC 7.5 10x3/uL (4.8-10.8)
[2018-12-28 05:18] LABS: ANION GAP 16.3 mmol/L (8-16); CALCIUM 7.4 mg/dL (8.5-10.1); CARBON DIOXIDE 26.4 mmol/L (21.0-32.0); CREATININE - SERUM 3.3 mg/dL (0.6-1.3); POTASSIUM - SERUM 4.7 mmol/L (3.5-5.1)
--- NOTE | 2018-12-28 07:23 | NUR ---
AM ROUNDS- RESPIRATORY THERAPIST, AT BEDSIDE TO GIVE PT UPDRAFT. PT DENIES ANY NEEDS AT THIS TIME. CALL LIGHT IN REACH, NAD NOTED, WILL CONTINUE PLAN OF CARE.
[2018-12-28 08:39] VITALS: BP 132/64
--- NOTE | 2018-12-28 09:01 | NUR ---
AM MEDS GIVEN AT THIS TIME. ALSO GAVE NORCO FOR PAIN LEVEL OF 7/10. EMPTIED 300ML OF YELLOW URINE. PT DENIES ANY NEEDS AT THIS TIME. A/O X4, RESP EVEN AND NONLABORED ON RA. CALL LIGHT IN REACH, NAD NOTED,W ILL CONTINUE TO MONITOR.
--- NOTE | 2018-12-28 11:43 | NUR ---
PT UP TO CHAIR, DENIES ANY NEEDS AT THIS TIME. CALL LIGHT IN REACH,NAD NOTED, WILL CONITNUE TO MONITOR.
[2018-12-28 11:51] VITALS: BP 119/85
[2018-12-28 15:50] VITALS: BP 121/78
--- NOTE | 2018-12-28 17:01 | NUR ---
OT NOTE: BED MOB WITH SPV; AMB IN ROOM WITH VAUDEVILLE ACTOR AND VC SECONDARY TO DECREASED VISION. ABLE TO AMB INTO HALLWAY WITH VAUDEVILLE ACTOR AND GAIT BELT; UE AROM EXS AND ENCOURAGEMENT TO SIT UP ON EDGE OF BED TO IMPOVE LUNG FUNCTION. MAC FOFANA, O TR/L
[2018-12-28 20:00] VITALS: BP 121/73
--- NOTE | 2018-12-28 20:00 | NUR ---
PT REQUESTED SANDWICH AND COKE. PT STATES HE IS NOT FEELING WELL. RR EVEN AND UNLABORED. BED LOW CALL LIGHT WITHIN REACH. WILL CONTINUE TO MONITOR.
[2018-12-29 00:30] VITALS: BP 116/69; BP 117/69
--- NOTE | 2018-12-29 01:54 | NUR ---
PT RESTING COMFORTABLY. RR EVEN AND UNLABORED. BED LOW CALL LIGHT WITHIN REACH. WILL CONTINUE TO MONITOR.
[2018-12-29 04:30] VITALS: BP 112/72
--- NOTE | 2018-12-29 05:13 | NUR ---
I have reviewed this patient and I concur with the Shift Assessment completed by the Licensed Practical Nurse today this shift.
[2018-12-29 05:54] LABS: BASOPHILS 0.5 % (0-2); EOSINOPHILS 1.5 % (0-7); HEMATOCRIT 29.7 % (42.0-54.0); HEMOGLOBIN 9.3 g/dL (13.5-17.5); IMMATURE GRANULOCYTES 0.1 % (0-5); LYMPHOCYTES 16.4 % (15-50); MCH 24.5 pg (26.0-34.0); MCHC 31.3 g/dL (31.0-37.0); MCV 78.4 fL (80.0-100.0); MEAN PLATELET VOLUME 9.1 fL (7.4-10.4); NEUTROPHILS 72.5 % (40-80); PLATELET COUNT 225 10x3/uL (130-400); RBC 3.79 10x6/uL (4.20-6.10); RDW 17.5 % (11.5-14.5); WBC 7.3 10x3/uL (4.8-10.8)
[2018-12-29 06:02] LABS: ANION GAP 19.4 mmol/L (8-16); CALCIUM 7.5 mg/dL (8.5-10.1); CARBON DIOXIDE 23.6 mmol/L (21.0-32.0); CREATININE - SERUM 3.2 mg/dL (0.6-1.3)
[2018-12-29 08:33] VITALS: BP 103/68
[2018-12-29 11:48] VITALS: BP 139/78
--- NOTE | 2018-12-29 15:15 | NUR ---
OT NOTE: BED MOB WITH SPV; TRANSFERS WITH CGA; SIMPLE GROOMING WITH SET UP; ABLE TO AMB IN ROOM WITH LOCAL BULK DRIVER AND HOLDING ON TO FURNITURE. PT CONT TO SLEEP THROUGHOUT DAY, BUT AROUSES EASILY WITH VERBAL CUES. MAC FOFANA, OTR/L
[2018-12-29 15:52] VITALS: BP 126/64
--- NOTE | 2018-12-29 16:00 | NUR ---
OT NOTE: PT COMPLETED BED MOB WITH SBA. PT COMPLETED EOB SITTING BALANCE WITH SBA. PT COMPLETED FACE WASHING WITH SET UP. 320/344 THANK YOU, TYLOR HOLCOMB
--- NOTE | 2018-12-29 19:46 | NUR ---
PT LAYING ON SIDE IN BED RESTING. PT DENIES ANY NEEDS OR PAIN AT THIS TIME. BED LOW CALL LIGHT WITHIN REACH. WILL CONTINUE TO MONITOR.
[2018-12-29 20:00] VITALS: BP 106/72
--- NOTE | 2018-12-30 00:58 | NUR ---
PT STATES HE IS HOT AND HAVING PAIN IN BACK. PRN PAIN MED GIVEN. BED LOW CALL LIGHT WITHIN REACH. WILL CONTINUE TO MONITOR.
[2018-12-30 05:00] VITALS: BP 103/55
[2018-12-30 06:14] LABS: HEMATOCRIT 28.5 % (42.0-54.0); HEMOGLOBIN 9.1 g/dL (13.5-17.5); LYMPHOCYTES 18.6 % (15-50); MCH 25.3 pg (26.0-34.0); MCHC 31.9 g/dL (31.0-37.0); MCV 79.4 fL (80.0-100.0); MEAN PLATELET VOLUME 8.7 fL (7.4-10.4); NEUTROPHILS 65.7 % (40-80); PLATELET COUNT 214 10x3/uL (130-400); RBC 3.59 10x6/uL (4.20-6.10); RDW 17.3 % (11.5-14.5); WBC 5.8 10x3/uL (4.8-10.8)
[2018-12-30 06:21] LABS: CALCIUM 7.8 mg/dL (8.5-10.1); CARBON DIOXIDE 25.6 mmol/L (21.0-32.0); CREATININE - SERUM 3.4 mg/dL (0.6-1.3); POTASSIUM - SERUM 4.6 mmol/L (3.5-5.1)
[2018-12-30 09:10] VITALS: BP 106/59
--- NOTE | 2018-12-30 10:13 | NUR ---
PT RESTING IN BED, PT SAT UP IN BED TO TAKE AM MEDICATIONS. SHIFT ASSESSMENT PERFORMED. PT REPORTS THAT HE TAKES HIS OWN SHOWER AT HOME, ADVISED PT THAT WE WILL PROVIDE PT WITH SUPPLIES TO SHOWER AND CHANGE HIS BED LINENS. PT AGREES. DENIES PAIN AT THIS TIME, DENIES NEEDS AT THIS TIME, WILL CONT TO FOLLOW PLAN OF CARE
[2018-12-30 13:24] VITALS: BP 111/63
--- NOTE | 2018-12-30 14:25 | NUR ---
Nutrition Follow Up: Renal diet with 100% intake most meals No recent weight-will request weight Reviewed labs RD following
[2018-12-30 17:05] VITALS: BP 112/66
--- NOTE | 2018-12-30 19:29 | NUR ---
RECEIVED REPORT, WILL ASSUME CARE OF PT, SLEEPING, BED IS LOW, SRX2, CALL LIGHT IN REACH, WILL CONTINUE PLAN OF CARE
[2018-12-30 20:00] VITALS: BP 107/71
--- NOTE | 2018-12-30 23:58 | NUR ---
COMPLAINS OF PAIN, GAVE NORCO ORDER
[2018-12-31] VITALS: BP 116/74
[2018-12-31 05:40] LABS: BASOPHILS 0.3 % (0-2); EOSINOPHILS 1.8 % (0-7); HEMOGLOBIN 9.5 g/dL (13.5-17.5); LYMPHOCYTES 19.1 % (15-50); MCH 24.9 pg (26.0-34.0); MCHC 31.7 g/dL (31.0-37.0); MCV 78.7 fL (80.0-100.0); MEAN PLATELET VOLUME 8.9 fL (7.4-10.4); MONOCYTES 11.8 % (2-11); PLATELET COUNT 219 10x3/uL (130-400); RBC 3.81 10x6/uL (4.20-6.10); RDW 17.5 % (11.5-14.5)
[2018-12-31 06:04] LABS: ANION GAP 16.7 mmol/L (8-16); CALCIUM 8.3 mg/dL (8.5-10.1); CARBON DIOXIDE 23.9 mmol/L (21.0-32.0); CREATININE - SERUM 3.3 mg/dL (0.6-1.3); POTASSIUM - SERUM 4.6 mmol/L (3.5-5.1)
[2018-12-31 06:22] VITALS: BP 162/52
[2018-12-31] MEDS ORDERED: CEFUROXIME500 MG PO (08:03)
[2018-12-31] MEDS ORDERED: ZYLOPRIM300 MG PO (08:05)
[2018-12-31] MEDS ORDERED: PROTONIX40 MG PO (08:05)
[2018-12-31] MEDS ORDERED: SINGULAIR10 MG PO (08:05)
[2018-12-31] MEDS ORDERED: COLCRYS0.6 MG PO (08:05)
[2018-12-31 09:08] VITALS: BP 118/82
--- NOTE | 2018-12-31 10:03 | MORECARE ---
CASE MANAGEMENT DISCHARGE SUMMARY PATIENT: AYLIN ALDANA UNIT: [id number] ADM DATE: 12/22/18 AGE: 48 : [birth year] SEX: M ROOM/BED: D.2135 AUTHOR: KATIE SORIA PHYSICIAN: REFERRING PHYSICIAN: ASHLEY GUZMAN DO DATE OF SERVICE: 12/31/18 Discharge Plan Patient Name: AYLIN ALDANA [facility] [facility] 1970 Planned Disposition: Home Anticipated Discharge Date: Discharge Date: Expected LOS: Initial Reviewer: [email or web address] Initial Review Date: 12/22/2018 Generated: 12/31/18 11:03 am Patient Name: AYLIN ALDANA Page [phone] at 1003 All edits/amendments must be made on the electronic document DICTATION DATE: 12/31/18 1002 HOSE SEAMER: ARTIE 12/31/18 1002 RPT#: [id number] DC DATE: STATUS: ADM IN [facility] [address] [place] [address] END OF REPORT
--- NOTE | 2018-12-31 10:09 | MORECARE ---
CASE MANAGEMENT DISCHARGE SUMMARY PATIENT: AYLIN ALDANA UNIT: [id number] ADM DATE: 12/22/18 AGE: 48 : 66 SEX: M ROOM/BED: D.8043 AUTHOR: ESTELLADOC PHYSICIAN: REFERRING PHYSICIAN: ASHLEY GUZMAN DO DATE OF SERVICE: 12/31/18 Discharge Plan Patient Name: AYLIN ALDANA Facility: [facility]:[place] : 1970 Planned Disposition: Home Anticipated Discharge Date: Discharge Date: Expected LOS: Initial Reviewer: NANCY Initial Review Date: 12/22/2018 Generated: 12/31/18 11:09 am Comments DCP- Discharge Planning Updated by [email or web address]: iLna Martins on 12/31/18 9:[address] Patient Name: AYLIN ALDANA Admission Status: ER Accout number: [id number] Admission Date: 12-22-2018 : 1970 Admission Diagnosis:DYSPNEA, UNSPECIFIED Attending: ASHLEY GUZMAN Current LOS: 9 Anticipated DC Date: Planned Disposition: Home Primary Insurance: MEDICAID [place] Discharge Planning Comments: CM met with patient to complete initial DC planning assessment. CM educated pt on the CM role and verbal consent given to complete assessment . Pt lives at home with room mate Tristian Fernandez [phone]. At [place] pt plans to return home and feels this is a safe discharge. CM discussed the availability of home health, rehab, and DME services . Pt has Trilogy and cane at home and does not feel like he will need anything else at this time. CM will continue to follow and will assist with needs as needed. Room mate will pick and shovel worker at [place] Stock Grader: Lina Martins DCPIA - Discharge Planning Initial Assessment Updated by [email or web address]: Lina Martins on 12/31/18 10:03 am * Is the patient Alert and Oriented? Yes * How many steps to enter\exit or inside your home? 2-3 * PCP Medicaid clinic * [facility] [address] * Preadmission Environment Home with Family * ADLs Independent * Equipment BIPAP Cane * List name and contact numbers for known caregivers / representatives who currently or will assist patient after discharge: tristian Jim [phone] * Verbal permission to speak to the caregivers and representatives has been obtained from the patient. N/A * Community resources currently utilized None * Additional services required to return to the preadmission environment? No * Can the patient safely return to the preadmission environment? Yes * Has this patient been hospitalized within the prior 30 days at any hospital? No Last DP export: 12/31/18 9:03 a Patient Name: AYLIN ALDANA Page [phone] at 1009 All edits/amendments must be made on the electronic document DICTATION DATE: 12/31/18 100 FELT CUTTER: ARTIE 12/31/18 1009 RPT#: [id number] DC DATE: STATUS: ADM IN [facility] [address] [place] [address] END OF REPORT
--- NOTE | 2018-12-31 10:11 | NUR ---
PT STATES HE WON'T BE ABLE TO LEAVE UNTIL LATER THIS AFTERNOON WHEN HIS RIDE GETS OFF OF WORK.
--- NOTE | 2018-12-31 10:16 | MORECARE ---
CASE MANAGEMENT DISCHARGE SUMMARY PATIENT: AYLIN ALDANA UNIT: [id number] ADM DATE: 12/22/18 AGE: 48 : 66 SEX: M ROOM/BED: D.2137 AUTHOR: ESTELLADOC PHYSICIAN: REFERRING PHYSICIAN: ASHLEY GUZMAN DO DATE OF SERVICE: 12/31/18 Discharge Plan Patient Name: AYLIN ALDANA Facility: [facility]:[place] : 1970 Planned Disposition: Home Anticipated Discharge Date: Discharge Date: Expected LOS: Initial Reviewer: NANCY Initial Review Date: 12/31/2018 Generated: 12/31/18 11:16 am Comments DCP- Discharge Planning Updated by [email or web address]: Lina Martins on 12/31/18 9:[address] Patient Name: AYLIN ALDANA Admission Status: ER Accout number: [id number] Admission Date: 12-22-2018 : 1970 Admission Diagnosis:DYSPNEA, UNSPECIFIED Attending: ASHLEY GUZMAN Current LOS: 9 Anticipated DC Date: Planned Disposition: Home Primary Insurance: MEDICAID [place] Discharge Planning Comments: CM met with patient to complete initial DC planning assessment. CM educated pt on the CM role and verbal consent given to complete assessment . Pt lives at home with room emmie Fernandez [phone]. At [place] pt plans to return home and feels this is a safe discharge. CM discussed the availability of home health, rehab, and DME services . Pt has Trilogy and cane at home and does not feel like he will need anything else at this time. CM will continue to follow and will assist with needs as needed. Room emmie will pickle cutter at [place] IMM served at 0944 Paper Pattern Folder: Lina Martins DCPIA - Discharge Planning Initial Assessment Updated by [email or web address]: Lina Martins on 12/31/18 10:03 am * Is the patient Alert and Oriented? Yes * How many steps to enter\exit or inside your home? 2-3 * PCP Medicaid clinic * [facility] [address] * Preadmission Environment Home with Family * ADLs Independent * Equipment BIPAP Cane * List name and contact numbers for known caregivers / representatives who currently or will assist patient after discharge: lucy Fernandez [phone] * Verbal permission to speak to the caregivers and representatives has been obtained from the patient. N/A * Community resources currently utilized None * Additional services required to return to the preadmission environment? No * Can the patient safely return to the preadmission environment? Yes * Has this patient been hospitalized within the prior 30 days at any hospital? No Coverage Notice Reviewer: [email or web address] Mitesh Martins Notice Issued Date-Time: 12/31/2018 9:44 Notice Type: IM Discharge Notice Notice Delivered To: Patient Relationship to Patient: Self Motor Vehicle Licence Examiner Name: Delivery Method: HAND - Hand Delivered Yahaira Days: Prior Verbal Notification: Recipient Understood Notice: Yes Recipient Signature: Yes Med Rec Note Co-signed by Attending: Coverage Notice Comment: 0944 am Last DP export: 12/31/18 9:09 a Patient Name: AYLIN ALDANA Page [phone] at 1016 All edits/amendments must be made on the electronic document DICTATION DATE: 12/31/18 1016 JACQUARD LACE WEAVER: ARTIE 12/31/18 1016 RPT#: [id number] DC DATE: STATUS: ADM IN [facility] [address] [place] [address] END OF REPORT
[2018-12-31 11:31] VITALS: BP 105/72
--- NOTE | 2018-12-31 14:21 | NUR ---
I have reviewed this patient and I concur with the Shift Assessment completed by the Licensed Practical Nurse today this shift.
--- NOTE | 2018-12-31 14:58 | NUR ---
PT STATES WHAT HAPPENS IF I CAN'T GET A RIDE. STATEMENT WAS MADE TO PT HE CAN CALL A TAXI. PT STATED BACK HE HAS NO MONEY TO PAY FOR A TAXI. CALLED CASE MANAGEMENT AND SHE STATES SHE WILL LOOK INTO IT.
--- NOTE | 2018-12-31 15:01 | NUR ---
I have reviewed this patient and I concur with the Shift Assessment completed by the Licensed Practical Nurse today this shift.
--- NOTE | 2018-12-31 15:23 | NUR ---
PT STATES HIS ROOMMATES BOSS WAS SUPPOSSED TO PICK HIM UP BUT NOW THE BOSS ISN'T ASNWERING THE PHONE.
--- NOTE | 2018-12-31 16:30 | NUR ---
TOLL LINE INSPECTOR STATED SHE FOUND A RIDE FOR PT AND THEY WILL BE HERE IN 30-45MIN.
--- NOTE | 2018-12-31 17:15 | NUR ---
LEFT HAND IV DC'D WITH CATH INTACT. DISCHARGE INSTRUCTIONS GIVEN TO PT ALL QUESTIONS ANSWERED. CHART COPY SIGNED.
--- NOTE | 2018-12-31 17:23 | NUR ---
PT TAKEN DOWN VIA WC BY DOOR TECHNICIAN.
--- NOTE | 2019-01-02 09:09 | MORECARE ---
CASE MANAGEMENT DISCHARGE SUMMARY PATIENT: AYLIN ALDANA UNIT: [id number] ADM DATE: 12/22/18 AGE: 48 : [birth year] SEX: M ROOM/BED: D.3359 AUTHOR: ESTELLADOC PHYSICIAN: REFERRING PHYSICIAN: ASHLEY GUZMAN DO DATE OF SERVICE: 01/02/19 Discharge Plan Patient Name: AYLIN ALDANA Facility: [facility]:[place] : 1970 Planned Disposition: Home Anticipated Discharge Date: 12/31/18 Discharge Date: 12/31/2018 Expected LOS: 9 Initial Reviewer: NANCY Initial Review Date: 12/31/2018 Generated: 01/02/19 10:09 am Comments DCP- Discharge Planning Updated by [email or web address]: Lina Martins on 12/31/18 9:[address] Patient Name: AYLIN ALDANA Admission Status: ER Accout number: [id number] Admission Date: 12-22-2018 : 1970 Admission Diagnosis:DYSPNEA, UNSPECIFIED Attending: ASHLEY GUZMAN Current LOS: 9 Anticipated DC Date: Planned Disposition: Home Primary Insurance: [place] Discharge Planning Comments: CM met with patient to complete initial DC planning assessment. CM educated pt on the CM role and verbal consent given to complete assessment . Pt lives at home with room emmie Fernadnez [phone]. At [place] pt plans to return home and feels this is a safe discharge. CM discussed the availability of home health, rehab, and DME services . Pt has Trilogy and cane at home and does not feel like he will need anything else at this time. CM will continue to follow and will assist with needs as needed. Room mate will picker box operator at [place] IMM served at 0944 Taping Foreman: Lina Martins DCPIA - Discharge Planning Initial Assessment Updated by [id number]: Lina Martins on 12/31/18 10:03 am * Is the patient Alert and Oriented? Yes * How many steps to enter\exit or inside your home? 2-3 * PCP Medicaid clinic * [facility] [address] * Preadmission Environment Home with Family * ADLs Independent * Equipment BIPAP Cane * List name and contact numbers for known caregivers / representatives who currently or will assist patient after discharge: lucy Fernandez [phone] * Verbal permission to speak to the caregivers and representatives has been obtained from the patient. N/A * Community resources currently utilized None * Additional services required to return to the preadmission environment? No * Can the patient safely return to the preadmission environment? Yes * Has this patient been hospitalized within the prior 30 days at any hospital? No Coverage Notice Reviewer: [id number] Mitesh Martins Notice Issued Date-Time: 12/31/2018 9:44 Notice Type: IM Discharge Notice Notice Delivered To: Patient Relationship to Patient: Self Business Transformation Manager Name: Delivery Method: HAND - Hand Delivered Yahaira Days: Prior Verbal Notification: Recipient Understood Notice: Yes Recipient Signature: Yes Med Rec Note Co-signed by Attending: Coverage Notice Comment: 0944 am Last DP export: 12/31/18 9:16 a Patient Name: AYLIN ALDANA Page 32315 at 0909 All edits/amendments must be made on the electronic document DICTATION DATE: 01/02/19907 ADVERTISING CLERK: ARTIE 01/02/19907 RPT#: [id number] DC DATE:12/31/18 STATUS: DIS IN [facility] [address] [place] [address] END OF REPORT
== END 2018-12-31 17:25 | disposition home or self-care (01) | DRG 291 ==
LOC: D.ER 12:05 → D.M2 15:14 → D.EDHOLD 15:14 → D.M2 15:29
PROVIDERS: Emergency Medicine; Family Medicine; Internal Medicine Gastroenterology; Internal Medicine Nephrology; Internal Medicine Pulmonary Disease; ADMIT Family Medicine; ATTEND Family Medicine
DX: I13.0 Hypertensive heart and chronic kidney disease with heart failure and stage 1 through stage 4 chronic kidney disease, or unspecified chronic kidney disease (principal); I50.23 Acute on chronic systolic (congestive) heart failure; G93.41 Metabolic encephalopathy; K85.90 Acute pancreatitis without necrosis or infection, unspecified; J96.01 Acute respiratory failure with hypoxia; J18.1 Lobar pneumonia, unspecified organism; J98.11 Atelectasis; N17.9 Acute kidney failure, unspecified; R18.8 Other ascites; N18.9 Chronic kidney disease, unspecified; E11.22 Type 2 diabetes mellitus with diabetic chronic kidney disease; E11.65 Type 2 diabetes mellitus with hyperglycemia; K74.60 Unspecified cirrhosis of liver; I48.2 Chronic atrial fibrillation; R91.1 Solitary pulmonary nodule; D50.9 Iron deficiency anemia, unspecified; E87.6 Hypokalemia; E83.42 Hypomagnesemia; E83.51 Hypocalcemia; M79.642 Pain in left hand

== ENCOUNTER 2019-02-15 13:48 | Inpatient (IN) | payer MEDICAID ==
[~2019-02-15 13:48] MED LIST changes: +ALDACTONE25 MG PO; +ATIVAN0.5 MG PO; +BUMEX2 MG PO; +CEFUROXIME500 MG PO; +COLCRYS0.6 MG PO; +PROTONIX40 MG PO; +SINGULAIR10 MG PO; +TOPROL XL25 MG PO; +ZYLOPRIM300 MG PO
[2019-02-15 14:44] LABS: BASOPHILS 0.8 % (0-2); EOSINOPHILS 1.3 % (0-7); HEMATOCRIT 29.2 % (42.0-54.0); HEMOGLOBIN 9.1 g/dL (13.5-17.5); IMMATURE GRANULOCYTES 0.1 % (0-5); LYMPHOCYTES 13.2 % (15-50); MCH 24.7 pg (26.0-34.0); MCHC 31.2 g/dL (31.0-37.0); MCV 79.3 fL (80.0-100.0); MEAN PLATELET VOLUME 8.2 fL (7.4-10.4); MONOCYTES 9.5 % (2-11); NEUTROPHILS 75.1 % (40-80); PLATELET COUNT 227 10x3/uL (130-400); RBC 3.68 10x6/uL (4.20-6.10); RDW 19.4 % (11.5-14.5); WBC 7.2 10x3/uL (4.8-10.8)
[2019-02-15 15:03] LABS: ALBUMIN 2.9 g/dL (3.4-5.0); ANION GAP 20.9 mmol/L (8-16); BILIRUBIN - TOTAL 0.59 mg/dL (0.2-1.3); CARBON DIOXIDE 17.9 mmol/L (21.0-32.0); CREATININE - SERUM 3.3 mg/dL (0.6-1.3); POTASSIUM - SERUM 3.8 mmol/L (3.5-5.1); PROTEIN - SERUM 7.7 g/dL (6.4-8.2)
[2019-02-15 15:09] LABS: CALCIUM 6.8 mg/dL (8.5-10.1)
[2019-02-15 15:38] VITALS: BP 123/94
[2019-02-15 15:47] LABS: APPEARANCE HAZY (CLEAR); BILIRUBIN NEGATIVE (NEGATIVE); COLOR STRAW (YELLOW); GLUCOSE NEGATIVE (NEGATIVE); KETONE NEGATIVE (NEGATIVE); NITRITE NEGATIVE (NEGATIVE); PROTEIN 1+ mg/dL (NEGATIVE); UROBILINOGEN NORMAL (NORMAL)
[2019-02-15 15:48] LABS: TROPONIN-I 0.029 ng/mL (0.000-0.060)
[2019-02-15 15:48] LABS: BACTERIA MANY /hpf (NONE SEEN); EPITHELIAL CELLS NSEEN /hpf (0-5); RED CELLS - URINE NONE SEEN /hpf (0-5)
--- NOTE | 2019-02-15 16:30 | NUR ---
PT LEAVING ED VIA STRETCHER TO MEDICAL IMAGING.
--- NOTE | 2019-02-15 16:42 | NUR ---
PT ARRIVED BACK TO ED VIA STRETCHER FROM MEDICAL IMAGING.
[2019-02-15 17:30] VITALS: BP 137/95
[2019-02-15 19:00] VITALS: BP 132/91
--- NOTE | 2019-02-15 19:33 | NUR ---
ROOM 2110 ASSIGNED AT 1832. THIS NURSE CALLED REPORT TO PEGGY ESTES AT THIS TIME. HAND-OFF REPORT ALSO GIVEN TO ED NURSE PEGGY OLGUIN. PT AWAITING TRANSPORT TO ASSIGNED ROOM.
--- NOTE | 2019-02-15 19:45 | NUR ---
ATTEMPTED TO TAKE PT TO FLOOR, ROOM DIRTY AT THIS TIME.
[2019-02-15 20:00] VITALS: BP 153/92
--- NOTE | 2019-02-15 20:07 | NUR ---
PT GIVEN SANDWICH AND SPRITE.
--- NOTE | 2019-02-15 20:30 | NUR ---
CALLED FLOOR, PT'S ROOM STILL DIRTY. STATES THEY WILL CALL WHEN ROOM IS CLEAN.
[2019-02-15 21:00] VITALS: BP 148/95
--- NOTE | 2019-02-15 21:20 | NUR ---
FLOOR CALLED STATES PT'S ROOM IS NOW CLEAN. PT TAKEN TO ROOM ON THE FLOOR AT THIS TIME.
[2019-02-15 23:35] VITALS: BP 132/73; BMI 35.0
[2019-02-16] VITALS: BP 132/74
[2019-02-16 04:00] VITALS: BP 142/89
[2019-02-16 05:08] LABS: BASOPHILS 0.9 % (0-2); EOSINOPHILS 1.1 % (0-7); HEMATOCRIT 27.7 % (42.0-54.0); HEMOGLOBIN 8.6 g/dL (13.5-17.5); IMMATURE GRANULOCYTES 0.1 % (0-5); LYMPHOCYTES 13.2 % (15-50); MCH 24.6 pg (26.0-34.0); MCV 79.1 fL (80.0-100.0); MEAN PLATELET VOLUME 8.5 fL (7.4-10.4); MONOCYTES 9.6 % (2-11); NEUTROPHILS 75.1 % (40-80); PLATELET COUNT 265 10x3/uL (130-400); RDW 19.3 % (11.5-14.5); WBC 8.1 10x3/uL (4.8-10.8)
[2019-02-16 05:39] LABS: INR 1.43 (0.85-1.17); PROTIME 16.9 SECONDS (11.6-15.0)
[2019-02-16 05:49] LABS: ALBUMIN 2.7 g/dL (3.4-5.0); ANION GAP 20.9 mmol/L (8-16); BILIRUBIN - TOTAL 0.52 mg/dL (0.2-1.3); CREATININE - SERUM 3.5 mg/dL (0.6-1.3); MAGNESIUM - SERUM 1.4 mg/dL (1.8-2.4); PHOSPHOROUS 8.7 mg/dL (2.5-4.9); POTASSIUM - SERUM 3.9 mmol/L (3.5-5.1); PROTEIN - SERUM 7.2 g/dL (6.4-8.2)
--- NOTE | 2019-02-16 05:53 | NUR ---
CRITICAL AMNONIA OF 97 CALLED TO ME. PAGED ABDIRASHID LOZANO. NEW ORDERS GIVEN.
[2019-02-16 06:09] LABS: CALCIUM 6.7 mg/dL (8.5-10.1)
--- NOTE | 2019-02-16 07:45 | NUR ---
AM ROUNDS COMPLETED. INTRODUCED MYSELF TO PT PRIMARY RN FOR TODAYS SHIFT. PT IS A&O SITTING UP IN BED RESTING QUIETLY. WILL REVIEW ORDERS AND LABS AND BEGIN PLAN OF CARE. PT DENIES ANY CURRENT NEEDS AT THIS TIME. CL IN REACH, BED IN LOWEST, SIDE RAILS X2. WILL CTM.
[2019-02-16 08:18] VITALS: BP 139/99
--- NOTE | 2019-02-16 09:20 | NUR ---
PT WANTING A SHOWER AFTER LARGE BOWEL MOVEMENT. ASSISTED PT INTO BR AND PROVIDED SHOWER CHAIR. ANTHONY KRAFT AT SIDE TO ASSIST. PIV WRAPPED. NO CURRENT NEEDS.
--- NOTE | 2019-02-16 11:20 | NUR ---
BLADDER SCAN PERFORMED R/T PTS SWOLLEN YURI AREA. BLADDER SCAN REVEALED 255ML. NO ACTION REQUIRED.
[2019-02-16 12:18] LABS: % SATURATION 4 % (15-55); IRON 18 ug/dl (35-150)
--- NOTE | 2019-02-16 12:21 | NUR ---
EMPTIED PTS URINAL OF 300CC CLEAR YELLOW URINE. UPON CHECKING ON PT NOTICED HIS LIPS SEEM DUSKY, BILAT NAIL BEDS ARE VERY DUSKY. LEFT PINKY VERY COLD AND LEFT HAND CAP REFILL >7SECS. PT DENIES ANY NUMBNESS BUT STATES HE FEELS LIKE THEY ARE CRAMPING UP. VSS AND PULSE OX 98% ON 2L. NOTIFIED ISABEL MOORE APN ON FLOOR AND NEW ORDERS REC'D FOR DOPPLER. PT EATING LUNCH AND DENIES ANY CURRENT NEEDS AT THIS TIME. CL IN REACH. WILL CONTINUE TO MONITER IT.
[2019-02-16 12:39] VITALS: BP 140/105
[2019-02-16 13:04] VITALS: BMI 34.9
--- NOTE | 2019-02-16 14:43 | NUR ---
AT BEDSIDE FOR CONSULT. PTS BILAT HAND COLOR AND CAP REFILL HAVE RETURNED TO NORMAL. STATES POSSIBLE RAYNAUDS SYNDROME. PT URINATED SO I WAS ABLE TO COLLECT URINE SAMPLE AND SEND TO LAB. STILL WAITING ON STOOL SPECIMEN. PT DENIES ANY CURRENT PAIN OR NEEDS AT THIS TIME. CL IN REACH. WILL CTM.
[2019-02-16 14:49] LABS: CREATININE - URINE 21.2 mg/dL (30-125); PRO/CRE RATIO URINE 4.8 mg/g; PROTEIN - URINE 102.5 mg/dL (0.0-11.9)
[2019-02-16 15:26] LABS: UDS - AMPHET POSITIVE QUAL (NEGATIVE); UDS - BARB NEGATIVE QUAL (NEGATIVE); UDS - BENZO NEGATIVE QUAL (NEGATIVE); UDS - COCAINE NEGATIVE QUAL (NEGATIVE); UDS - OPIATE NEGATIVE QUAL (NEGATIVE); UDS - PCP NEGATIVE QUAL (NEGATIVE); UDS - THC NEGATIVE QUAL (NEGATIVE)
[2019-02-16 15:42] LABS: TOTAL IRON BIND CAPACITY 381 ug/dl (260-445); UNSAT IRON BIND CAPACITY 363 ug/dl (150-375)
--- NOTE | 2019-02-16 16:01 | NUR ---
PT C/O PAIN ALL OVER. REQUESTING AND PROVIDED WITH PRN PAIN MEDICATION. EMPTIED URINAL OF 375ML CLEAR YELLOW URINE. PT WANTS TO TRY AND REST NOW. NO CURRENT NEEDS. CL IN REACH.
[2019-02-16 16:50] VITALS: BP 142/93
--- NOTE | 2019-02-16 19:19 | NUR ---
PATIENT ESCORTED TO CT VIA BED WITH HOSPITAL STAFF.
--- NOTE | 2019-02-16 19:40 | NUR ---
PATIENT BACK FROM CT.
[2019-02-16 21:04] VITALS: BP 134/95
[2019-02-17] VITALS (7 sets, daily range): BP systolic 128–133; BP diastolic 78–95
--- NOTE | 2019-02-17 02:22 | NUR ---
I WAS ALERTED BY THE PATIENTS PRIMARY NURSE THAT THE PATIENT WAS MAKING STATES TO HER THAT HE WANTED TO GO HOME AND END IT ALL. I WENT TO PATIENT ROOM AND ASSESSED PATIENT. PATIENT BEGAN TALKING TO ME ABOUT HOW HE WAS TOLD THAT ONE OF HIS BROTHERS SHOT HIMSELF IN THE HEAD IN FRONT OF HIM AND THAT THE HIS OTHER BROTHER WAS MURDERED. PATIENT STATED THAT HE HAD A PLAN AND THAT HE WAS GOING TO LEAVE AMA AND GO HIM AND BLOW HIS HEAD OFF. PATIENT BEGAN REPEATING THAT HE WAS "SORRY". NOTIFIIED WATER TREATMENT PLANT SUPERVISOR. REPEATED THE SUICIDE ASSESSMENT AND NOTIFIED THE ABDIRASHID LOZANO APN.
--- NOTE | 2019-02-17 02:24 | NUR ---
PATIENT REQUESTED PAIN MEDICATIONS. I BROUGHT HIM TYLENOL. HE STATED IT MAKES HIS STOMACH HURT, HE THEN STARTED TO SAY HE IS IN TOO MUCH PAIN. HE THEN TOLD ME HE WANTED TO LEAVE AMA AND GO HOME AND JUST . HE STATED HE WATCHED HIS BROTHER SHOOT HIMSELF IN THE HEAD A MONTH AGO. HE THEN WENT ON TO SAY THAT HE WATCHED HIS MOTHER GO THROUGH MULTIPLE CANCERS AND . HE ALSO STATED THAT HE WATCHED HIS FATHER GO FROM A BRILLIANT MAN TO A BLUBBERING MAN AND . I ASKED THE AIDE TO GET CHARGE NURSE MEERA. MEERA CAME TO THE ROOM AND I INFORMED HER OF WHAT PATIENT STATED TO ME. SHE INFORMED THE NURSING DOCK GUARD AND CORRECTION NURSE DEEPTHI. MEERA STAYED IN PATIENT'S ROOM WHILE I CALLED ABDIRASHID PIZARRO TUBE SIZER AND CUTTER OPERATOR. WHILE ON THE PHONE WITH ABDIRASHID, PATIENT TOLD MEERA THAT HE WANTED TO LEAVE AMA AND SHOOT HIMSELF IN THE HEAD WHEN HE GOT HOME. ABDIRASHID INFORMED AND STATED TO HAVE PSYCH EVAL AND PATIENT MAY NEED A SITTER AND A HOLD PLACED. WHILE CORRECTION NURSE DEEPTHI WAS EVALUATING PATIENT, PATIENT DENIED ANY SUICIDAL IDEATIONS. AIDE SITTING WITH PATIENT.
--- NOTE | 2019-02-17 02:38 | NUR ---
PATIENT LAYING IN BED. ANYTHING THAT PATIENT COULD USE TO HURT SELF WAS REMOVED FROM ROOM OTHER THEN OXYGEN CORD. AIDE SITTING WITH PATIENT UNTIL OTHERWISE TOLD BY JUAREZ MENDENHALL.
--- NOTE | 2019-02-17 02:41 | NUR ---
WAS CALLED TO ROOM 2109 FOR A SUICIDE SCREENING. WAS REPORTED THAT PATIENT WANTED TO GO AMA AND KILL HIMSELF. WHEN THIS NURSE ASKED IF HE WANTED TO KILL HIMSELF, HE RESPONDED "NO" WITH 2 WITNESSESS THERE, NURSE(JAMAL) AND A GUT CARRIER. THEN HE WENT ON TO SAY, "WHAT DID I EVEN SAY?". PATIENT WAS ASSISTED WITH A COOL CLOTH TO FOREHEAD, COOL WATER, ASSITED PATIENT'S LEGS BACK IN BED AND PULLED PATIENT UP. PATIENT DENIES ANY S/I AT THIS TIME.
--- NOTE | 2019-02-17 02:50 | NUR ---
ABDIRASHID PIZARRO AND TAYLOR, NURSING BLENDING TANK TENDER MADE AWARE THAT PATIENT DENIED ANY SUICIDAL IDEATIONS. ABDIRASHID STATED HE WANTED THE PATIENT TO BE TRANSFERRED TO THE ICU DUE TO BEING A FLIGHT RISK.
--- NOTE | 2019-02-17 03:02 | NUR ---
REPORT CALLED TO RODRIGO IN ICU FOR ROOM 2304. RODRIGO REFUSED PATIENT DUE TO ICU NOT HAVING A SITTER.
--- NOTE | 2019-02-17 03:52 | NUR ---
UNABLE TO COMPLETE SUICIDE RISK ASSESSMENT. PATIENT VERY AGITATED AND REFUSED TO ANSWER QUESTIONS INITIALLY. PATIENT CONTINUOUSLY CHANGING ANSWERS AND EXPLANATION OF WHAT HE SAID. ADMITTING TO SAYING HE TOLD NURSE HE WANTED TO GO HOME AND ; THEN STATES HE DIDNT SAY IT. THEN STATES THE MEDICINE MADE HIM SAY IT. THEN STATES HE DONT KNOW WHAT HE SAID. THEN STATES THE NURSES MISUNDERSTOOD HIM WHEN HE WAS TALKING ABOUT SEEING HIS BROTHER BLOW HIS BRAINS OUT. PATIENT STATES HIS HEAD HURTS AND DOESNT WANT TO TALK TO ANYONE ELSE OR ANSWER ANYMORE QUESTIONS. STATED HE JUST WANTS TO BE LEFT ALONE AND FOR IT TO ALL BE OVER WITH.
[2019-02-17 04:05] LABS: BASOPHILS 0.3 % (0-2); EOSINOPHILS 0.7 % (0-7); HEMATOCRIT 27.8 % (42.0-54.0); HEMOGLOBIN 8.7 g/dL (13.5-17.5); IMMATURE GRANULOCYTES 0.4 % (0-5); MCH 24.6 pg (26.0-34.0); MCHC 31.3 g/dL (31.0-37.0); MCV 78.5 fL (80.0-100.0); MEAN PLATELET VOLUME 8.2 fL (7.4-10.4); MONOCYTES 11.9 % (2-11); NEUTROPHILS 76.7 % (40-80); PLATELET COUNT 219 10x3/uL (130-400); RBC 3.54 10x6/uL (4.20-6.10); RDW 18.6 % (11.5-14.5); WBC 9.5 10x3/uL (4.8-10.8)
--- NOTE | 2019-02-17 04:10 | NUR ---
SEE NOTIFIED OF PATIENT BEHAVIOR. 1:1 ORDER RECEIVED FOR SAFETY PRECAUTIONS. SITTER AT BEDSIDE AT THIS TIME. ER PHYSICIAN IN ROOM WITH PATIENT PRIOR TO BEHAVIORAL HEALTH ASSESSMENT. PATIENT REFUSES TO MAKE SAFETY PLAN AND REFUSES SUICIDE RESOURCES.
[2019-02-17 04:27] LABS: ALBUMIN 2.6 g/dL (3.4-5.0); ANION GAP 19.9 mmol/L (8-16); BILIRUBIN - TOTAL 0.41 mg/dL (0.2-1.3); CREATININE - SERUM 3.7 mg/dL (0.6-1.3); MAGNESIUM - SERUM 1.2 mg/dL (1.8-2.4); POTASSIUM - SERUM 3.9 mmol/L (3.5-5.1); PROTEIN - SERUM 6.8 g/dL (6.4-8.2)
--- NOTE | 2019-02-17 04:40 | NUR ---
PATIENT TRANSFERRED TO ICU VIA BED ACCOMPANIED BY HOSPITAL STAFF.
--- NOTE | 2019-02-17 04:40 | NUR ---
PT RECEIVED FROM [facility]. PSYCH NURSE AT BEDSIDE. ROOM FREED FROM CLUTTER. TELEMETRY CABLES LEFT IN ROOM. PAPER SCRUBS PROVIDED. PT BACK AND FORTH ABOUT STATING HE TRIED TO HURT HIMSELF. CONSISTANTLY TALKS ABOUT AND VIOLENCE. WILL CONTINUE TO MONITOR.
--- NOTE | 2019-02-17 04:57 | NUR ---
PAGED ABDIRASHID LOZANO TO VERIFY TRANSFER ORDER. PER ABDIRASHID LOAZNO TRANSFER TO ICU FOR SUICIDAL IDEATIONS AND FLIGHT RISK.
--- NOTE | 2019-02-17 09:07 | NUR ---
PT CONTINUES TO REFUSE TO DO A SAFETY PLAN BUT HE DOES STATE THAT HE WOULD NOT HURT HIMSELF. PT DENIES SI AND DENIES EVER BEING SUICIDAL. PT GIVEN A SUICIDE PRECAUTIONS TRAY FOR BREAKFAST. NO AGITATION NOTED EXCEPT WHEN DISCUSSING LAST NIGHTS EVENTS.
--- NOTE | 2019-02-17 09:16 | NUR ---
Nutrition follow-up: Pt is now in ICU due to SI. Diet: Renal PO intake ~25% of meals +BM Labs reviewed RDN following.
--- NOTE | 2019-02-17 14:28 | MORECARE ---
CASE MANAGEMENT DISCHARGE SUMMARY PATIENT: AYLIN ALDANA UNIT: [id number] ADM DATE: 02/15/19 AGE: 48 : 66 SEX: M ROOM/BED: D.2305 AUTHOR: KATEI SORIA PHYSICIAN: REFERRING PHYSICIAN: ANA LANDON DO DATE OF SERVICE: 02/17/19 Discharge Plan Patient Name: AYLIN ALDANA [facility] [facility] 1970 Planned Disposition: Anticipated Discharge Date: Discharge Date: Expected LOS: Initial Reviewer: [email or web address] Initial Review Date: 02/15/2019 Generated: 02/17/19 3:27 pm Patient Name: AYLIN ALDANA Page [id number] at 1428 All edits/amendments must be made on the electronic document DICTATION DATE: 02/17/191426 ETL APPLICATION DEVELOPER: ARTIE 02/17/191426 RPT#: [id number] DC DATE: STATUS: ADM IN [facility] [address] [place] [address] END OF REPORT
[2019-02-17 18:08] LABS: FOLATE (FOLIC ACID) - SERUM 7.7 ng/mL (>3.0)
--- NOTE | 2019-02-17 19:00 | NUR ---
REPORT RECEIVED CARE ASSSUMED. ASSESSMENT DONE SEE FLOW SHEET. 1:1 SITTER OBSERVATION AT BEDSIDE. PT VERBALIZES HE HAD THOUGHT OF HURTING HIMSELF, BUT WAS CONFUSED AT THAT TIME AND DOES NOT FEEL THAT WAY NOW. HE DOES NOT RECALL THE TIME WHERE HE MADE THE STATEMENT.
--- NOTE | 2019-02-17 21:00 | NUR ---
MEDS GIVEN PER MAR NO DIFFICULTY SWALLOWING NOTED WILL CONTINUE TO MONITOR.
--- NOTE | 2019-02-17 22:48 | NUR ---
PT LAYING IN BED RESTING VSS NO SIGNS OF ACUTE DISTRESS NOTED WILL CONTINUE TO MONITOR.
--- NOTE | 2019-02-18 01:07 | NUR ---
PT LAYING IN BED RESTING NO SIGNS OF ACUTE DISTRESS NOTED WILL CONTINUE TO MONITOR.
[2019-02-18 03:00] VITALS: BP 140/97
--- NOTE | 2019-02-18 03:00 | NUR ---
MEDS GIVEN PER MAR VSS WILL CONTINUE TO MONITOR.
[2019-02-18 03:16] LABS: BASOPHILS 0.7 % (0-2); EOSINOPHILS 1.6 % (0-7); HEMATOCRIT 27.6 % (42.0-54.0); HEMOGLOBIN 8.5 g/dL (13.5-17.5); IMMATURE GRANULOCYTES 0.3 % (0-5); LYMPHOCYTES 14.1 % (15-50); MCH 24.3 pg (26.0-34.0); MCHC 30.8 g/dL (31.0-37.0); MCV 78.9 fL (80.0-100.0); MEAN PLATELET VOLUME 8.2 fL (7.4-10.4); MONOCYTES 8.6 % (2-11); NEUTROPHILS 74.7 % (40-80); PLATELET COUNT 203 10x3/uL (130-400); WBC 7.5 10x3/uL (4.8-10.8)
[2019-02-18 03:27] LABS: INR 1.34 (0.85-1.17); PROTIME 16.1 SECONDS (11.6-15.0)
[2019-02-18 03:38] LABS: % SATURATION 4 % (15-55); IRON 15 ug/dl (35-150); TOTAL IRON BIND CAPACITY 366 ug/dl (260-445); UNSAT IRON BIND CAPACITY 351 ug/dl (150-375)
[2019-02-18 03:52] LABS: ALBUMIN 2.5 g/dL (3.4-5.0); ANION GAP 18.9 mmol/L (8-16); BILIRUBIN - TOTAL 0.47 mg/dL (0.2-1.3); CALCIUM 7.1 mg/dL (8.5-10.1); CARBON DIOXIDE 20.5 mmol/L (21.0-32.0); CREATININE - SERUM 3.7 mg/dL (0.6-1.3); MAGNESIUM - SERUM 1.5 mg/dL (1.8-2.4); PHOSPHOROUS 8.8 mg/dL (2.5-4.9); POTASSIUM - SERUM 3.4 mmol/L (3.5-5.1); PROTEIN - SERUM 6.9 g/dL (6.4-8.2)
--- NOTE | 2019-02-18 04:23 | NUR ---
PT CONTINUES TO REFUSE TO DO SAFETY PLAN AT THIS TIME. PT REPORTS HE WILL NOT HURT HIS SELF IN ANY WAY. PT DENIES SI AT THIS TIME. 1:1 SITTER AT BEDSIDE PER ORDER. PT. BECOMES AGITATED EASILY WHEN DISCUSSING SI. PT REDIRECT EASILY AT THIS TIME.
--- NOTE | 2019-02-18 05:00 | NUR ---
PT IN BED RESTING NO SIGNS OF ACUTE DISTRESS NOTED.
[2019-02-18 07:00] VITALS: BP 120/85
--- NOTE | 2019-02-18 07:05 | NUR ---
PT CONTINUES TO REFUSE SAFETY PLAN. 1:1 SITTER OBSERVATION AT BEDSIDE PER ORDER. PT DENIES ANY SI AT THIS TIME. NO AGGRESSION N0TED AT THIS TIME.
--- NOTE | 2019-02-18 07:11 | NUR ---
0700 ASLEEP 5L/NC NO DISTRESS NOTED REMAINS ON 1:1 WITH CONTINIOUS OBSERVATIONS
--- NOTE | 2019-02-18 07:49 | NUR ---
0745 PULLED SELF UP IN BED BREAKFAST SERVED APPETITE GOOD
--- NOTE | 2019-02-18 08:25 | NUR ---
0825 MEDS GIVEN REFUSED LACTULOSE
[2019-02-18 09:13] LABS: MAGNESIUM - SERUM 1.3 mg/dL (1.8-2.4); POTASSIUM - SERUM 3.6 mmol/L (3.5-5.1)
--- NOTE | 2019-02-18 10:29 | NUR ---
1019 REPEAT SERUM MAGNESIUM RESULT 1.3 STARTED MAGNESIUM IV PER ELECTROLYTE PROTOCOL
[2019-02-18 11:00] VITALS: BP 114/89
--- NOTE | 2019-02-18 11:29 | CN ---
PATIENT NAME:AYLIN ALDANA MEDICAL RECORD: [id number] : [birth year] LOCATION:[facility].2305 ADMIT DATE: 02/15/19 ACCOUNT: [id number] CONSULTING PHYSICIAN: PERRI CUI MD REFERRING PHYSICIAN: ANA LANDON DO DATE OF CONSULTATION: 02/17/2019 IDENTIFYING DATA: The patient is 48 years old and he is admitted to the hospital on a voluntary basis. CHIEF COMPLAINT: None. HISTORY OF PRESENT ILLNESS: The patient presented here after 3 days of shortness of breath. He has a long and complicated history with chronic kidney disease, hypertension, atrial fibrillation, coronary artery disease, congestive heart failure, and COPD. The patient apparently has an elevated ammonia and last night made some statements to the nurse that he repeated and documented about wanting to kill himself. He said that a brother had shot himself in front of him and that when he went home, he was going to do the same thing. When I asked him about this, he says that he never said it. I thought perhaps he may not remember what happened since he is sick and has an elevated ammonia, but he is fully oriented today. He says he remembers the events yesterday and he even remembers talking about his brother shooting himself, but the other portion of this about him wanting to shoot himself never happened according to the patient. This is just not something that is believable. Perhaps he said something he does not mean and is embarrassed. I gave him every opportunity to elaborate, retract modify what he was saying, but he would not. He endorses numerous neurovegetative depressive symptoms, but says he is not depressed. MENTAL STATUS EXAMINATION: The patient is awake, alert, and oriented fully. His mood is depressed. His affect is constricted. Thought processes are goal directed. Memory, concentration, and abstraction abilities are mildly impaired and he denies any intent to harm himself or others as well as psychotic symptoms. ASSESSMENT: Major depression. PLAN: The patient is clearly depressed. The explanation about what happened last night is not believable. I am not sure if he is embarrassed about what he said and wants to retract it, but has already explained himself and is not willing to embarrass himself by changing that or if he is just simply being manipulative and intends to go home to kill himself. At this point, I think he needs to continue with the sitter. I will reassess him in a day or two to determine if he is still in need of a sitter. He is medically ill right now, but if he were medically stable at this moment, I would have to say he needs to go to acute inpatient psychiatric care. I think I may be able to modify that or it may be reasonable to modify that in a day or two, but at this point, I think he should continue with the sitter. I am not comfortable with the explanation for the details reasons I gave above and I will return to see him soon. TRANSINT:[id number] Voice Confirmation ID: [id number] DOCUMENT ID: [id number] CONSULT REPORT [id number] AYLIN ALDANA, PERRI PATTON at 1129 CC: [id number] DICTATION DATE: 02/17/191717 INSURANCE LOSS ASSESSOR: 02/17/191922 ADM IN [facility] [address] [place] [address]
--- NOTE | 2019-02-18 12:54 | NUR ---
1200 LUNCH TRAY SERVED APPETITE GOOD ASSISTED UP TO BEDSIDE COMMODE MODERATE SOFT BM NOTED
--- NOTE | 2019-02-18 12:56 | NUR ---
1230 DR CUI ROUNDING ON PATIENT NEW ORDERS NOTED
[2019-02-18 15:00] VITALS: BP 123/90
[2019-02-18 19:00] VITALS: BP 114/69
--- NOTE | 2019-02-18 21:00 | NUR ---
1900 REPORT RECEIVED CARE ASSUMED ASSESSMENT DONE SEE FLOW SHEET VSS NO SIGNS OF ACUTE DISTRESS NOTED WILL CONTINUE TO MONITOR. 2100 MEDS GIVEN PER MAR NO SIGNS OF ACUTE DISTRESS NOTED WILL CONTINUE TO MONITOR.
[2019-02-18 23:00] VITALS: BP 122/82
--- NOTE | 2019-02-18 23:00 | NUR ---
MEDS GIVEN PER MAR. WILL CONTINUE TO MONITOR.
--- NOTE | 2019-02-19 01:00 | NUR ---
WATER PROVIDED PER PT REQUEST NO SIGNS OF ACUTE DISTRESS NOTED WILL CONTINUE TO MONITOR.
[2019-02-19 03:00] VITALS: BP 119/82
[2019-02-19 03:06] LABS: BASOPHILS 0.5 % (0-2); EOSINOPHILS 1.5 % (0-7); HEMATOCRIT 29.4 % (42.0-54.0); HEMOGLOBIN 9.2 g/dL (13.5-17.5); IMMATURE GRANULOCYTES 0.1 % (0-5); LYMPHOCYTES 9.8 % (15-50); MCH 24.5 pg (26.0-34.0); MCHC 31.3 g/dL (31.0-37.0); MCV 78.4 fL (80.0-100.0); MEAN PLATELET VOLUME 8.1 fL (7.4-10.4); MONOCYTES 10.3 % (2-11); NEUTROPHILS 77.8 % (40-80); PLATELET COUNT 221 10x3/uL (130-400); RBC 3.75 10x6/uL (4.20-6.10); RDW 18.7 % (11.5-14.5); WBC 9.2 10x3/uL (4.8-10.8)
[2019-02-19 03:18] LABS: ALBUMIN 2.6 g/dL (3.4-5.0); ANION GAP 18.1 mmol/L (8-16); BILIRUBIN - TOTAL 0.47 mg/dL (0.2-1.3); CARBON DIOXIDE 20.7 mmol/L (21.0-32.0); CREATININE - SERUM 3.6 mg/dL (0.6-1.3); MAGNESIUM - SERUM 2.1 mg/dL (1.8-2.4); PHOSPHOROUS 8.4 mg/dL (2.5-4.9); POTASSIUM - SERUM 3.8 mmol/L (3.5-5.1); PROTEIN - SERUM 7.1 g/dL (6.4-8.2)
--- NOTE | 2019-02-19 06:18 | NUR ---
CRITICAL AMMONIA CALLED TO DR VASQUEZ. MED CHANGE ORDER GIVEN SEE MAR.
[2019-02-19 07:00] VITALS: BP 122/87
[2019-02-19 11:00] VITALS: BP 121/79
--- NOTE | 2019-02-19 12:15 | PN ---
PATIENT:AYLIN ALDANA MEDICAL RECORD: [id number] LOCATION:[facility] ADMISSION DATE: 02/15/19 PROGRESS NOTE DATE OF SERVICE: 02/18/2019 SUBJECTIVE: The patient's case was discussed with staff. He has no new complaint. OBJECTIVE: The patient is fully oriented. He admits that he made suicidal statements out of frustration. He says he is sorry he did this and he will not do it again. ASSESSMENT: Major depression. PLAN: The patient is very focused on improving his medical well-being. I do not think he is depressed. I do not think he is actively suicidal. The sitter will be discontinued. His long-term prognosis is guarded and is probably going to be contingent upon how he does medically. TRANSINT:[id number] Voice Confirmation ID: [id number] DOCUMENT ID: [id number] PERRI CUI MD at 1215 CC: [id number] DICTATION DATE: 02/18/19 1230 BUSINESS ARCHITECT: 02/18/19 1336 ADM IN [facility] [address] [place] [address]
[2019-02-19 17:55] VITALS: BP 139/86
[2019-02-19 20:00] VITALS: BP 116/82
--- NOTE | 2019-02-19 20:05 | NUR ---
LYING IN BED. ALERT AND ORIENTED X4. RESP IRREG. SOB NOTED. BBS DIMINISHED. O2 @ 2L/NC. ABD IS DISTENDED WITH MULTIPLE HERNIAS NOTED. BS ACTIVE X4 QUADS. USING URINAL. CONTACT ISO IN USE. GEN WEAKNESS NOTED. SALINE LOCK NOTED TO LT AC. DENIES PAIN. SR ELEVATED X2. CL IN REACH.
--- NOTE | 2019-02-19 22:00 | NUR ---
REQUESTING POPSICLES. REMINDED PT OF NPO STATUS AFTER MIDNIGHT AND HE VERBALIZED UNDERSTANDING.
[2019-02-20] VITALS: BP 120/76
--- NOTE | 2019-02-20 00:05 | NUR ---
PT CALLS STAFF INTO ROOM TO INFORM THEM THAT HE HAS DECIDED NOT TO HAVE THE LUNG BIOPSY TOMORROW BECAUSE HE HAS "TOO MUCH GOING ON RIGHT NOW." INFORMED PT THAT HE WOULD STILL BE NPO AFTER MIDNIGHT AND COULD SPEAK TO THE MD ABOUT IT TOMORROW. HE VERBALIZED UNDERSTANDING.
[2019-02-20 04:00] VITALS: BP 162/79
[2019-02-20 04:16] LABS: BASOPHILS 0.5 % (0-2); EOSINOPHILS 1.6 % (0-7); HEMATOCRIT 26.5 % (42.0-54.0); HEMOGLOBIN 8.2 g/dL (13.5-17.5); IMMATURE GRANULOCYTES 0.3 % (0-5); LYMPHOCYTES 9.1 % (15-50); MCH 24.3 pg (26.0-34.0); MCHC 30.9 g/dL (31.0-37.0); MCV 78.4 fL (80.0-100.0); MEAN PLATELET VOLUME 8.8 fL (7.4-10.4); MONOCYTES 9.3 % (2-11); NEUTROPHILS 79.2 % (40-80); PLATELET COUNT 215 10x3/uL (130-400); RBC 3.38 10x6/uL (4.20-6.10); RDW 18.7 % (11.5-14.5); WBC 7.5 10x3/uL (4.8-10.8)
[2019-02-20 04:25] LABS: INR 1.37 (0.85-1.17); PROTIME 16.3 SECONDS (11.6-15.0)
[2019-02-20 04:38] LABS: ALBUMIN 2.3 g/dL (3.4-5.0); BILIRUBIN - TOTAL 0.45 mg/dL (0.2-1.3); CARBON DIOXIDE 21.4 mmol/L (21.0-32.0); CREATININE - SERUM 3.8 mg/dL (0.6-1.3); MAGNESIUM - SERUM 1.8 mg/dL (1.8-2.4); PHOSPHOROUS 7.1 mg/dL (2.5-4.9); PROTEIN - SERUM 6.5 g/dL (6.4-8.2)
[2019-02-20 04:52] LABS: ANION GAP 17.8 mmol/L (8-16); CALCIUM 6.9 mg/dL (8.5-10.1); POTASSIUM - SERUM 3.2 mmol/L (3.5-5.1)
--- NOTE | 2019-02-20 05:00 | NUR ---
NONCOMPLIANT WITH STAFF REQUESTS. REFUSED WT. TELLING STAFF HE DRANK A GLASS OF WATER DURING THE NIGHT. TELLS STAFF AGAIN THAT HE IS NOT GOING TO HAVE THE LUNG BIOPSY DONE TODAY AND THAT NOBODY WILL LET HIM GET ANY SLEEP.
--- NOTE | 2019-02-20 05:58 | NUR ---
ARGUING WITH STAFF ABOUT BEING NPO. STATES HE IS HUNGRY. EXPLAINED TO PT THAT HE CANT HAVE ANYTHING BY MOUTH.
[2019-02-20 08:55] VITALS: BP 125/86
[2019-02-20 12:34] VITALS: BP 141/78
--- NOTE | 2019-02-20 15:03 | CN ---
PATIENT NAME:AYLIN ALDANA MEDICAL RECORD: [id number] : 66 LOCATION:[facility] D.1213 ADMIT DATE: 02/15/19 ACCOUNT: [id number] CONSULTING PHYSICIAN: GORAN HARRY MD REFERRING PHYSICIAN: ANA LANDON DO DATE OF CONSULTATION: 02/16/2019 HISTORY OF PRESENT ILLNESS: A 48-year-old gentleman well known to our office with a history of atrial fibrillation as well as nonischemic cardiomyopathy. EF is improved on a combination of beta-blockade, rate control, aldosterone inhibition. Due to lifestyle and medical noncompliance issues, not felt to be NOAC candidate. Also has chronic renal insufficiency. Had upper GI distress, was unable to keep his meds down for a few days. Admitted with volume overload and atrial fibrillation with RVR. Currently rates were 102. We are asked to see him concerning his cardiovascular status. PAST MEDICAL HISTORY: Includes: 1. History of hypertension. 2. Chronic renal insufficiency. 3. Obstructive pulmonary disease. ALLERGIES: No known drug allergies. SOCIAL HISTORY: Heavy drinker in the past up to at least fifth a day. No set exercise program. REVIEW OF SYSTEMS: The patient reports easy bruising but reports no swollen glands. The patient reports no fever, no night sweats, no significant weight gain, no significant weight loss. No significant exercise tolerance. The patient reports no dry eyes, no irritation, no vision change. Patient reports no difficulty hearing and no ear pain. Patient reports no frequent nose bleeds or nose and sinus problems. Patient reports on arm pain on exertion. No shortness of breath while lying down. No history of heart murmur. Patient reports no cough, no wheezing or coughing up blood. Patient reports no abdominal pain, no vomiting. Normal appetite. No diarrhea and not vomiting blood. No nausea and no constipation. Patient reports no incontinence. No difficulty urinating. No hematuria. No increased frequency. Patient reports no muscle aches. No weakness, no arthralgias, no back pain. No swelling of the extremities. Patient reports no abnormal mole, no jaundice, no rashes. Reports no loss of consciousness. No weakness and no numbness. No seizures, dizziness, or headaches. The patient reports no depression, no sleep disturbance, feeling safe in a relationship and no alcohol abuse. Patient reports on fatigue. Reports no runny nose or sinus pressure. No itching, no hives, and no frequent sneezing. MEDICATIONS: Home medications includes Aldactone 12.5 every day, metoprolol 25 every day, aspirin 81 every day, Ativan 0.5 t.i.d. p.r.n., Bumex 2 mg b.i.d. PHYSICAL EXAMINATION: GENERAL: Unkempt appearing, in no acute distress. VITAL SIGNS: Blood pressure 139/99, pulse 102. HEENT: Normocephalic, atraumatic. NECK: No bruits noted. HEART: Irregular, II/ systolic ejection murmur. No gallops are noted. LUNGS: Fairly good air excursion. CONSULT REPORT [id number] KATYAAYLIN Lalito ABDOMEN: Protuberant, nontender. EXTREMITIES: Pulses are 2+. There is 2+ edema. IMPRESSION: Volume overload, multifactorial with atrial fibrillation with rapid ventricular response, renal insufficiency, anemia probably contributing as well with a hemoglobin of 8.6. We will increase Aldactone to 25 mg a day. IV loop diuretics until euvolemic. Further recommendations based on above. TRANSINT:[id number] Voice Confirmation ID: [id number] DOCUMENT ID: [id number] GORAN HARRY MD at 1502 CC: [id number] DICTATION DATE: 02/16/1939 PHYSICAL METEOROLOGIST: 02/16/19 1148 ADM IN [place] [id number] [place] [address]
[2019-02-20 15:41] VITALS: BMI 34.2
[2019-02-20 18:37] VITALS: BP 156/68
--- NOTE | 2019-02-20 20:01 | NUR ---
PT RESTING IN BED WITH EYES OPEN CALL LIGHT IN REACH NO PROBLEMS WILL MONITER
[2019-02-20 22:14] VITALS: BP 140/76
[2019-02-21 05:12] LABS: FOLATE (FOLIC ACID) - SERUM 7.8 ng/mL (>3.0)
[2019-02-21 05:25] VITALS: BP 172/62
[2019-02-21 06:51] LABS: BASOPHILS 0.6 % (0-2); EOSINOPHILS 1.7 % (0-7); HEMATOCRIT 27.7 % (42.0-54.0); HEMOGLOBIN 8.5 g/dL (13.5-17.5); IMMATURE GRANULOCYTES 0.2 % (0-5); LYMPHOCYTES 13.1 % (15-50); MCH 24.2 pg (26.0-34.0); MCHC 30.7 g/dL (31.0-37.0); MCV 78.9 fL (80.0-100.0); MEAN PLATELET VOLUME 8.2 fL (7.4-10.4); MONOCYTES 8.7 % (2-11); NEUTROPHILS 75.7 % (40-80); PLATELET COUNT 174 10x3/uL (130-400); RBC 3.51 10x6/uL (4.20-6.10); RDW 18.9 % (11.5-14.5); WBC 6.6 10x3/uL (4.8-10.8)
[2019-02-21 07:11] LABS: ANION GAP 17.7 mmol/L (8-16); CALCIUM 7.3 mg/dL (8.5-10.1); CARBON DIOXIDE 22.6 mmol/L (21.0-32.0); CREATININE - SERUM 3.7 mg/dL (0.6-1.3); MAGNESIUM - SERUM 1.8 mg/dL (1.8-2.4); PHOSPHOROUS 7.2 mg/dL (2.5-4.9); POTASSIUM - SERUM 3.3 mmol/L (3.5-5.1)
[2019-02-21 07:37] LABS: APTT 31.5 SECONDS (22.8-39.4); INR 1.3 (0.85-1.17); PROTIME 15.6 SECONDS (11.6-15.0)
[2019-02-21 08:30] LABS: ERYTHROCYTE SEDIMENTATION RATE 18 mm/hr (0-20)
--- NOTE | 2019-02-21 08:33 | NUR ---
RESTING WO DISTRESS. CL IN REACH. NO C/O PAIN.
--- NOTE | 2019-02-21 13:16 | NUR ---
OFF UNIT FOR LUNG MASS BIOPSY AT THIS TIME.
--- NOTE | 2019-02-21 15:15 | NUR ---
BACK FROM LUNG BIOPSY. ALERT AND ORIENTED. NO DISTRESS NOTED.
--- NOTE | 2019-02-21 17:49 | NUR ---
RESTING WO C/O PAIN. DRESSING TO BACK FROM LUNG BX IS CDI. VSS. CL IN REACH. ATE DINNER.
[2019-02-21 18:25] VITALS: BP 119/86
[2019-02-21 20:00] VITALS: BP 122/84
[2019-02-22] VITALS: BP 116/86
--- NOTE | 2019-02-22 00:33 | NUR ---
I have reviewed this patient and I concur with the Shift Assessment completed by the Licensed Practical Nurse today this shift.
[2019-02-22 04:00] VITALS: BP 124/80
[2019-02-22 07:35] LABS: BASOPHILS 0.8 % (0-2); EOSINOPHILS 2.4 % (0-7); HEMATOCRIT 30.7 % (42.0-54.0); HEMOGLOBIN 9.4 g/dL (13.5-17.5); IMMATURE GRANULOCYTES 0.1 % (0-5); LYMPHOCYTES 12.6 % (15-50); MCH 24.4 pg (26.0-34.0); MCHC 30.6 g/dL (31.0-37.0); MCV 79.5 fL (80.0-100.0); MEAN PLATELET VOLUME 8.7 fL (7.4-10.4); MONOCYTES 9.3 % (2-11); NEUTROPHILS 74.8 % (40-80); PLATELET COUNT 205 10x3/uL (130-400); RBC 3.86 10x6/uL (4.20-6.10); RDW 18.7 % (11.5-14.5); WBC 7.8 10x3/uL (4.8-10.8)
[2019-02-22 07:57] LABS: ANION GAP 16.3 mmol/L (8-16); CALCIUM 7.5 mg/dL (8.5-10.1); CREATININE - SERUM 3.5 mg/dL (0.6-1.3); MAGNESIUM - SERUM 1.7 mg/dL (1.8-2.4); PHOSPHOROUS 6.4 mg/dL (2.5-4.9); POTASSIUM - SERUM 3.3 mmol/L (3.5-5.1)
[2019-02-22 08:30] VITALS: BP 125/89
[2019-02-22 10:16] LABS: HEPATITIS C ANTIBODY 0.3 S/CO RAT (0.0-0.9)
[2019-02-22 11:14] LABS: ANA REFLEX - DIRECT Negative (Negative)
[2019-02-22 12:18] VITALS: BP 130/86
[2019-02-22 19:08] LABS: SPE - A/G RATIO 0.6 (0.7-1.7); SPE - ALBUMIN 2.2 g/dL (2.9-4.4); SPE - ALPHA-1 GLOBULIN 0.4 g/dL (0.0-0.4); SPE - ALPHA-2 GLOBULIN 0.9 g/dL (0.4-1.0); SPE - GAMMA GLOBULIN 1.5 g/dL (0.4-1.8); SPE - M-SPIKE Not Observed g/dL (Not Observed)
[2019-02-22 20:00] VITALS: BP 121/90
[2019-02-23] VITALS: BP 119/74
--- NOTE | 2019-02-23 02:20 | NUR ---
REST IN BED, EYE CLOSE, CALL LIGHT IN REACH.
[2019-02-23 04:00] VITALS: BP 103/75
--- NOTE | 2019-02-23 05:45 | NUR ---
REST QUIETLY IN BED, CALL LIGHT IN REACH.
[2019-02-23 06:01] LABS: BASOPHILS 0.4 % (0-2); EOSINOPHILS 2.2 % (0-7); HEMATOCRIT 28.1 % (42.0-54.0); HEMOGLOBIN 8.5 g/dL (13.5-17.5); IMMATURE GRANULOCYTES 0.1 % (0-5); LYMPHOCYTES 14.1 % (15-50); MCH 23.9 pg (26.0-34.0); MCHC 30.2 g/dL (31.0-37.0); MCV 79.2 fL (80.0-100.0); MEAN PLATELET VOLUME 8.6 fL (7.4-10.4); NEUTROPHILS 74.2 % (40-80); PLATELET COUNT 187 10x3/uL (130-400); RBC 3.55 10x6/uL (4.20-6.10); RDW 18.4 % (11.5-14.5); WBC 6.8 10x3/uL (4.8-10.8)
[2019-02-23 06:19] LABS: ANION GAP 16.4 mmol/L (8-16); CALCIUM 7.2 mg/dL (8.5-10.1); CARBON DIOXIDE 22.9 mmol/L (21.0-32.0); CREATININE - SERUM 3.3 mg/dL (0.6-1.3); MAGNESIUM - SERUM 1.6 mg/dL (1.8-2.4); POTASSIUM - SERUM 3.3 mmol/L (3.5-5.1)
[2019-02-23 06:31] LABS: PROTEIN - URINE 43.6 mg/dL (0.0-11.9)
[2019-02-23 07:28] LABS: CREATININE - URINE 20.8 mg/dL (30-125)
[2019-02-23 08:26] VITALS: BP 120/70
[2019-02-23 09:13] LABS: ANTI-GLOMERULAR BASMENT MEMBRN 5 units (0-20)
[2019-02-23 12:23] VITALS: BP 111/78
[2019-02-23 18:07] LABS: ANCA - ANTIMYELOPEROXIDASE <9.0 U/mL (0.0-9.0); ANCA - ANTIPROTEINASE 3 <3.5 U/mL (0.0-3.5); ANCA - ATYPICAL <1:20 titer (Neg:<1:20); ANCA - CYTOPLASMIC <1:20 titer (Neg:<1:20); ANCA - PERINUCLEAR <1:20 titer (Neg:<1:20)
--- NOTE | 2019-02-24 08:31 | MORECARE ---
CASE MANAGEMENT DISCHARGE SUMMARY PATIENT: AYLIN ALDANA UNIT: [id number] ADM DATE: 02/15/19 AGE: 48 : 66 SEX: M ROOM/BED: D.1213 AUTHOR: KATIE SORIA PHYSICIAN: REFERRING PHYSICIAN: ANA LANDON DO DATE OF SERVICE: 02/24/19 Discharge Plan Patient Name: AYLIN ALDANA [facility] [facility] 1970 Planned Disposition: Anticipated Discharge Date: Discharge Date: 02/23/2019 Expected LOS: Initial Reviewer: [email or web address] Initial Review Date: 02/15/2019 Generated: 02/24/19 9:30 am Last DP export: 02/17/19 1:28 p Patient Name: AYLIN ALDANA Page [phone] at 0831 All edits/amendments must be made on the electronic document DICTATION DATE: 02/24/19829 TUFTER: DM 02/24/19829 RPT#: [id number] DC DATE:02/23/19 STATUS: DIS IN [facility] [address] [place] [address] END OF REPORT
== END 2019-02-23 17:13 | disposition home or self-care (01) | DRG 291 ==
LOC: D.ER 13:48 → D.ICU 18:32 → D.M2 18:32 → D.ICU 02-17 04:46 → D.MS 02-19 12:46 → D.M3 02-20 13:59
PROVIDERS: Family Medicine; General Practice; Internal Medicine; Internal Medicine Nephrology; Internal Medicine Pulmonary Disease; Radiology Diagnostic Radiology; ADMIT Family Medicine; ATTEND Family Medicine
PROC: 0BBP3ZX Excision of Left Pleura, Percutaneous Approach, Diagnostic (ICD-10-PCS; principal; 2019-02-21 13:19)
DX: I13.0 Hypertensive heart and chronic kidney disease with heart failure and stage 1 through stage 4 chronic kidney disease, or unspecified chronic kidney disease (principal); I50.23 Acute on chronic systolic (congestive) heart failure; N17.9 Acute kidney failure, unspecified; N39.0 Urinary tract infection, site not specified; E11.22 Type 2 diabetes mellitus with diabetic chronic kidney disease; N18.3 Chronic kidney disease, stage 3 (moderate); I48.2 Chronic atrial fibrillation; R60.1 Generalized edema; R91.1 Solitary pulmonary nodule; K74.60 Unspecified cirrhosis of liver; Z98.84 Bariatric surgery status; D50.9 Iron deficiency anemia, unspecified; J44.9 Chronic obstructive pulmonary disease, unspecified; F15.10 Other stimulant abuse, uncomplicated; E83.42 Hypomagnesemia; E83.39 Other disorders of phosphorus metabolism; B96.20 Unspecified Escherichia coli [E. coli] as the cause of diseases classified elsewhere; I25.10 Atherosclerotic heart disease of native coronary artery without angina pectoris

== ENCOUNTER 2019-05-16 21:46 | Inpatient (IN) | payer MEDICAID ==
[~2019-05-16] VITALS: Ht 172.7 cm; Wt 104.3 kg
[2019-05-16 22:25] LABS: BASOPHILS 0.3 % (0-2); EOSINOPHILS 2.1 % (0-7); HEMATOCRIT 25.6 % (42.0-54.0); HEMOGLOBIN 7.6 g/dL (13.5-17.5); IMMATURE GRANULOCYTES 0.2 % (0-5); LYMPHOCYTES 12.1 % (15-50); MCH 24.8 pg (26.0-34.0); MCHC 29.7 g/dL (31.0-37.0); MCV 83.7 fL (80.0-100.0); MEAN PLATELET VOLUME 8.7 fL (7.4-10.4); MONOCYTES 9.1 % (2-11); NEUTROPHILS 76.2 % (40-80); PLATELET COUNT 156 10x3/uL (130-400); RBC 3.06 10x6/uL (4.20-6.10); RDW 20.7 % (11.5-14.5); WBC 6.3 10x3/uL (4.8-10.8)
[2019-05-16 22:30] VITALS: BP 109/72
[2019-05-16 22:34] LABS: APTT 26.8 SECONDS (22.8-39.4); INR 1.2 (0.85-1.17); PROTIME 14.7 SECONDS (11.6-15.0)
[2019-05-16 22:47] LABS: ALBUMIN 2.9 g/dL (3.4-5.0); ANION GAP 12.6 mmol/L (8-16); BILIRUBIN - TOTAL 0.66 mg/dL (0.2-1.3); CALCIUM 7.3 mg/dL (8.5-10.1); CARBON DIOXIDE 25.4 mmol/L (21.0-32.0); CREATININE - SERUM 3.2 mg/dL (0.6-1.3); MAGNESIUM - SERUM 1.8 mg/dL (1.8-2.4); PROTEIN - SERUM 7.2 g/dL (6.4-8.2); TROPONIN-I 0.027 ng/mL (0.000-0.060)
[2019-05-16 23:00] VITALS: BP 117/73
--- NOTE | 2019-05-17 00:55 | NUR ---
RECIEVED TO ROOM 2112 FROM ER VIA STRETCHER. PT A&O. RESPERATONS NON LABORED ON O2 AT 2 LITERS. PLACED ON TELEMETRY, 113 UNCONTROLLED A-FIB PER MT. IV TO LEFT FOREARM SL. SITE CLEAN AND DRY. PT C/O PAIN TO LOWER ABD, ASKING FOR PAIN MEDS. INFORMED PT THAT I WILL HAVE TO CALL HIS PCP TO OBTAIN AN ORDER FOR PAIN MEDS. BRUISE NOTED TO PTS MID BACK, PT STATED THAT HE THINKS ITS A SPIDER BITE. MED REC AND HISTORY OBTAINED. PT DENIES FURTHER NEEDS AT THIS TIME, BED LOW, CL IN REACH.
[2019-05-17 01:28] VITALS: BP 110/80
[2019-05-17 01:29] VITALS: BP 110/80; BMI 35.0
--- NOTE | 2019-05-17 01:37 | NUR ---
MORPHINE 2 MG GIVEN IV FOR C/O PAIN TO ABD, RATES PAIN AT A 7 ON PAIN SCALE.
--- NOTE | 2019-05-17 01:53 | NUR ---
URINE SPECIMEN COLLECTED AND TAKEN TO LAB.
[2019-05-17 02:08] LABS: APPEARANCE CLEAR (CLEAR); BILIRUBIN NEGATIVE (NEGATIVE); COLOR YELLOW (YELLOW); GLUCOSE NEGATIVE (NEGATIVE); KETONE NEGATIVE (NEGATIVE); NITRITE NEGATIVE (NEGATIVE); PROTEIN 3+ mg/dL (NEGATIVE); UROBILINOGEN NORMAL (NORMAL)
[2019-05-17 02:10] LABS: BACTERIA FEW /hpf (NONE SEEN); EPITHELIAL CELLS 0-5 /hpf (0-5); RED CELLS - URINE 0-5 /hpf (0-5); UDS - AMPHET NEGATIVE QUAL (NEGATIVE); UDS - BARB NEGATIVE QUAL (NEGATIVE); UDS - BENZO NEGATIVE QUAL (NEGATIVE); UDS - COCAINE NEGATIVE QUAL (NEGATIVE); UDS - OPIATE NEGATIVE QUAL (NEGATIVE); UDS - PCP NEGATIVE QUAL (NEGATIVE); UDS - THC POSITIVE QUAL (NEGATIVE); WHITE CELLS - URINE 0-5 /hpf (0-5)
--- NOTE | 2019-05-17 03:37 | NUR ---
RESTING WITH EYES CLOSED, RESPERATIONS EVEN, NO S/S DSITRESS NOTED.
[2019-05-17 05:13] VITALS: BP 111/73
[2019-05-17 06:11] LABS: BASOPHILS 0.6 % (0-2); HEMATOCRIT 25.7 % (42.0-54.0); HEMOGLOBIN 7.6 g/dL (13.5-17.5); IMMATURE GRANULOCYTES 0.2 % (0-5); LYMPHOCYTES 15.1 % (15-50); MCH 24.8 pg (26.0-34.0); MCHC 29.6 g/dL (31.0-37.0); MEAN PLATELET VOLUME 8.9 fL (7.4-10.4); MONOCYTES 11.9 % (2-11); NEUTROPHILS 70.2 % (40-80); PLATELET COUNT 153 10x3/uL (130-400); RBC 3.06 10x6/uL (4.20-6.10); RDW 20.7 % (11.5-14.5)
[2019-05-17 06:50] LABS: ALBUMIN 2.7 g/dL (3.4-5.0); ALKALINE PHOSPHATASE 130 U/L (46-116); ALT (SGPT) 26 U/L (10-68); BILIRUBIN - TOTAL 0.54 mg/dL (0.2-1.3); CALC OSMOLALITY 301 mosm/kg (275-300); CALCIUM 7.5 mg/dL (8.5-10.1); CARBON DIOXIDE 25.3 mmol/L (21.0-32.0); CHLORIDE - SERUM 104 mmol/L (98-107); CKMB 2.2 U/L (0.0-3.6); CREATINE KINASE 74 UL (21-232); CREATININE - SERUM 3.3 mg/dL (0.6-1.3); GLUCOSE 81 mg/dL (74-106); MAGNESIUM - SERUM 1.7 mg/dL (1.8-2.4); PRO BNP 21209 pg/mL (0-125); PROTEIN - SERUM 6.6 g/dL (6.4-8.2); SODIUM 140 mmol/L (136-145); TROPONIN-I 0.017 ng/mL (0.000-0.060); UREA NITROGEN 79 mg/dL (7-18); eGFR NON AFRICAN AMERICAN 21 mL/min (90-120)
[2019-05-17 09:20] VITALS: BP 117/63
[2019-05-17 12:58] VITALS: BMI 34.9
[2019-05-17 13:07] VITALS: BP 111/79
--- NOTE | 2019-05-17 17:09 | NUR ---
I have reviewed this patient and I concur with the Shift Assessment completed by the Licensed Practical Nurse today this shift.
--- NOTE | 2019-05-17 18:12 | NUR ---
WITHOUT CHANGES OR DISTRESS NOTED AT THIS TIME. DENIES NEEDS
--- NOTE | 2019-05-17 19:27 | NUR ---
ASSESSMENT COMPLETE, PT RESTING ON LEFT SIDE, RESPERATIONS NON LABORED ON 02 AT 4 LITERS VIA NC. PT AROUSES TO VERBAL STIMULI. IV TO LEFT WRIST WITH PROTONIX DRIP INFUSING AT 10 CC/HR AND NS AT KVO, IV SITE CLEAN AND DRY. BED LOW, CL IN REACH.
[2019-05-17 20:00] VITALS: BP 100/58
--- NOTE | 2019-05-17 20:56 | NUR ---
HS MEDS GIVEN WITH FRESH ICE WATER. PT DENIES PAIN OR NEEDS.
[2019-05-18] VITALS: BP 110/55
[2019-05-18 06:22] LABS: BASOPHILS 0.3 % (0-2); EOSINOPHILS 0.9 % (0-7); HEMATOCRIT 28.2 % (42.0-54.0); HEMOGLOBIN 8.1 g/dL (13.5-17.5); IMMATURE GRANULOCYTES 0.2 % (0-5); LYMPHOCYTES 8.2 % (15-50); MCH 24.4 pg (26.0-34.0); MCHC 28.7 g/dL (31.0-37.0); MCV 84.9 fL (80.0-100.0); MEAN PLATELET VOLUME 9.1 fL (7.4-10.4); MONOCYTES 15.1 % (2-11); NEUTROPHILS 75.3 % (40-80); RBC 3.32 10x6/uL (4.20-6.10)
[2019-05-18 06:43] LABS: ANION GAP 16.8 mmol/L (8-16); CALCIUM 7.3 mg/dL (8.5-10.1); CARBON DIOXIDE 24.8 mmol/L (21.0-32.0); CREATININE - SERUM 3.7 mg/dL (0.6-1.3); MAGNESIUM - SERUM 1.9 mg/dL (1.8-2.4)
[2019-05-18 06:47] LABS: PHOSPHOROUS 8.2 mg/dL (2.5-4.9); PLATELET COUNT 221 10x3/uL (130-400); POTASSIUM - SERUM 5.6 mmol/L (3.5-5.1); WBC 8.6 10x3/uL (4.8-10.8)
--- NOTE | 2019-05-18 07:07 | NUR ---
ASSESSMENT DONE. DENIES NEEDS
--- NOTE | 2019-05-18 07:36 | NUR ---
ASSESSMENT DONE. DENIES NEEDS
[2019-05-18 09:39] VITALS: BP 95/59
[2019-05-18 13:14] VITALS: BP 83/49
--- NOTE | 2019-05-18 13:14 | NUR ---
I have reviewed this patient and I concur with the Shift Assessment completed by the Licensed Practical Nurse today this shift.
--- NOTE | 2019-05-18 14:31 | EC ---
PATIENT:AYLIN ALDANA DATE OF SERVICE: 05/16/19 SEX: M MEDICAL RECORD: [id number] DATE OF : [birth year] LOCATION:D.M2 D.211 AGE OF PATIENT: 49 ADMISSION DATE: 05/16/19 REFERRING PHYSICIAN: INTERPRETING PHYSICIAN: CHAZ BOYD MD ECHOCARDIOGRAM REPORT ECHO CHARGES 4 ECHO COMPLETE Date: 05/17/19 CLINICAL DIAGNOSIS: CHF ECHOCARDIOGRAPHIC MEASUREMENTS (adult normal given) AC root (d.<3.7cm) 3.2 cm LV Septum d (<1.2 cm> 1.2 cm Valve Excursion 1.2 cm LV Septum (systole) 1.5 cm Left Atria (s.<4.0cm> 5.5 cm LVPW d(<1.2cm) 1.3 cm RV (d.<2.3cm) 3.5 cm LVPW (sytole) 1.5 cm LV diastole(<5.6CM) 6.2 cm MV E-F(>70mm/sec) cm LV systole 5.6 cm LVOT Diameter 1.9 cm MV exc.(>10mm) cm Est.ejection fraction (50-75%) % DOPPLER: LVIT cm/sec A cm/sec E 120 cm/sec LA cm/sec RVSP 39.0 mmHg LVOT 69.0 cm/sec AOP1/2T m/s Asc. Ao 184 cm/sec RVOT 60.0 cm/sec RA cm/sec PA 63.0 cm/sec AV Gradient Peak 14.0 mmHg AV Mean 8.7 mmHg AV Area 0.9 cm MV Gradient Peak 9.2 mmHg MV Mean 3.1 mmHg MV Area cm COMMENTS: Cook Candy: Eliane VALENZUELAOE Freight Engineer: 1 Dr. Boyd TAPE# PACS Pericardial Effusion N DATE OF SERVICE: 05/17/2019 FINDINGS: 1. Left ventricular chamber size is mildly dilated. Left ventricular systolic function is moderately reduced at 35%. 2. Left atrium is enlarged at 5.5 cm. Right atrium and right ventricular chamber sizes are as well moderate to severely dilated. 3. Valvular structures have normal structure and motion. 4. Doppler interrogation reveals mild mitral regurgitation, severe tricuspid regurgitation, no other valvular insufficiency or stenosis. Pulmonary systolic ECHOCARDIOGRAM REPORT [id number] AYLIN ALDANA pressure is estimated at 40 mmHg. 5. No evidence of pericardial effusion or left ventricular thrombus. TRANSINT:[id number] Voice Confirmation ID: [id number] DOCUMENT ID: [id number] CHAZ BOYD MD at 1431 CC: [id number] DICTATION DATE: 05/17/191713 ENGINE DISPATCHER: 05/17/19 2346 ADM IN [facility] [address] [place] [address]
[2019-05-18 17:09] VITALS: BP 88/60
--- NOTE | 2019-05-18 17:19 | NUR ---
WITHOUT CHANGES OR DISTRESS NOTED AT THIS TIME. DENIES NEEDS
[2019-05-18 20:00] VITALS: BP 134/52
--- NOTE | 2019-05-18 20:46 | NUR ---
BURR MILL OPERATOR AT BED SIDE, O2 SATS IN THE 70'S WITH O2 AT 3 LITERS VIA NC. CALLED RUSLAN FROM RT, RUSLAN INCREASED O2 TO 4 AND THEN 5 LITERS, PTS SATS ONLY INCREASED TO LOW 80'S. RUSLAN THEN PLACED PT ON O2 AT 8 LITERS VIA HIGH FLOW CANULA, PTS SATS CAME UP TO 94%. INFORMED PT TO BE SURE TO LEAVE HIS OXYGEN BECAUSE HE HAS BEEN FOUND PREVIOUSLY WITH OUT IT ON. PT STATED UNDERSTANDING.
[2019-05-19] VITALS (48 sets, daily range): BP systolic 71–111; BP diastolic 44–80; Ht 172.7 cm; Wt 104.3 kg
--- NOTE | 2019-05-19 00:16 | NUR ---
PT SITTING UP ON SIDE OF BED, PT CONFUSED ASKING WHAT HE IS DOING IN MINE. REORIENTED PT TO TIME AND PLACE. ASSISTED BACK TO BED.
--- NOTE | 2019-05-19 02:33 | NUR ---
PT RESTING ON LEFT SIDE, RESPERATIONS NON LABORED. O2 IN PLACE.
--- NOTE | 2019-05-19 04:37 | NUR ---
I have reviewed this patient and I concur with the Shift Assessment completed by the Licensed Practical Nurse today this shift.
[2019-05-19 05:07] LABS: CALCIUM 7.1 mg/dL (8.5-10.1); MAGNESIUM - SERUM 1.9 mg/dL (1.8-2.4); PHOSPHOROUS 8.9 mg/dL (2.5-4.9)
[2019-05-19 05:15] LABS: HEMATOCRIT 31.3 % (42.0-54.0); HEMOGLOBIN 9.3 g/dL (13.5-17.5); LYMPHOCYTES 7.9 % (15-50); MCH 25.5 pg (26.0-34.0); MCHC 29.7 g/dL (31.0-37.0); MEAN PLATELET VOLUME 9.4 fL (7.4-10.4); NEUTROPHILS 78.4 % (40-80); RBC 3.64 10x6/uL (4.20-6.10); RDW 20.7 % (11.5-14.5)
[2019-05-19 05:16] LABS: PLATELET COUNT 289 10x3/uL (130-400)
[2019-05-19 05:26] LABS: ANION GAP 22.2 mmol/L (8-16); CREATININE - SERUM 4.7 mg/dL (0.6-1.3)
[2019-05-19 05:27] LABS: POTASSIUM - SERUM 6.2 mmol/L (3.5-5.1)
--- NOTE | 2019-05-19 05:40 | NUR ---
CRITICAL POTASSIUM CALLED TO ABDIRASHID LOZANO APN. ORDERS GIVEN AND CARRIED OUT.
--- NOTE | 2019-05-19 05:50 | NUR ---
CALL PLACED TO RENAL TO INFORM OF CRITICAL LAB.
--- NOTE | 2019-05-19 06:05 | NUR ---
AM LASIX GIVEN, O2 SATS RECHECKED, 92% ON 8 LITERS.
--- NOTE | 2019-05-19 07:20 | NUR ---
PT SITTING UPRIGHT UPON ENTERING. ALERT AND ORIENTED OF RIGHT NOW. PT REQUESTED DRINK, PROVIDED PROMPTLY. DENIES ANY NEEDS AT THIS TIME. WILL CTM.
--- NOTE | 2019-05-19 08:07 | NUR ---
DOING CASEMANAGEMENT AM REVIEW, NOTED SATS 89% ON 8L HFNC. DID NOT SEE ANY DOCUMENTATION THAT INTERVENTION WAS DONE. WENT IN TO CHECK ON PATIENT. PATIENT WITH EYES CLOSED, 45% ANGLE, VERY GROGGY. FINGERS ARE CYANOTIC. INITIALLY PUT ON PORTABLE PULSEOX AND SATS WERE 76%, PT DOES HAVE RAYNAUD SYNDROME PER HIS VERBAL REPORT. WARMED HANDS AND PLACED A SECOND PULSEOX. READINGS REMAINED THE SAME. PATIENT HAS AUDIBLE WET BREATH SOUNDS WITHOUT A STETHASCOPE. I HAD THE PATIENT COUGH, COUGH IS WET AND PRODUCTIVE. HE IS SWALLOWING HIS SPUTUM INSTEAD OF SPITTING IT OUT. I PLACED A THIRD PULSE OX TO HIS HEAR. ALL THREE PULSE OXES ARE READING THE SAME WITH THE ONE ON THE EAR BEING 1% HIGHER. I CONTINUED TO HAVE THE PATIENT COUGH AND HIS SATS ARE NOW SITTING AT 90% ON 9.5L HFNC. I HAVE REPORTED THIS TO HIS NURSE AND SHE HAS PLACED A CALL TO LISA MAYNARD APN WHO WAS ALREADY ON HER WAY TO THE FLOOR AND WALKED IN TO SEE THE PATIENT. MEHRAN STATED SHE WAS GOING TO GET ABG'S.
[2019-05-19 08:11] LABS: HEPATITIS C ANTIBODY 0.1 S/CO RAT (0.0-0.9)
--- NOTE | 2019-05-19 08:16 | NUR ---
OBTAINED PULSE OX TO PUT ON PT EAR DUE TO LOW READINGS VIA FINGER PULSE OX. ORIGINAL SAT WAS 76%. CASE MANAGEMENT WAS IN ROOM AND HAD PT COUGH. AUDIBLY WET COUGH. SAT WENT UP TO 90% ON BOTH FINGER AND EAR PULSE OX. PT IS ON 9.5L HIGH FLOW NC OXYGEN. PLACED CALL TO JUAREZ GONZALEZ SHE STATED SHE WAS ON HER WAY TO SEE HIM, ARRIVED WITHIN 2 MINUTES OF PHONE CALL. REQUESTED I ORDER ABG'S STAT FOR PT. ORDER PUT IN AND I MADE A PHONE CALL TO RESPIRATORY TO CONFIRM THEY RECEIVED ABG ORDER, THEY DID. REPORTED TO BE ON THEIR WAY.
--- NOTE | 2019-05-19 08:20 | NUR ---
RESPIRATORY JUST ENTERED FLOOR TO COLLECT ABG ON PT.
--- NOTE | 2019-05-19 09:03 | NUR ---
ADMINISTERED MEDICATION, NO TROUBLE SWALLOWING. PT IS REFUSING VENTI MASK. REPLACED THE HIGH FLOW NASAL CANNULA T 9.5L . [facility]. PT IS RESTING COMFORTABLY. CANNOT GET O2 TO COME ABOVE 79%. REPORTED. WILL CTM.
--- NOTE | 2019-05-19 09:10 | NUR ---
CALLED LISA WITH OXYGEN SATURATION READINGS FROM CONTINUOUS PULSE OX FROM FOREHEAD AND EARLOBE OF 79%. INSTRUCTED TO MOVE TO ICU. INFORMED SAMUEL FINCH. SAMUEL CALLED [employer] AND IS ACQUIRING A BED FOR PATIENT.
--- NOTE | 2019-05-19 09:35 | MORECARE ---
CASE MANAGEMENT DISCHARGE SUMMARY PATIENT: AYLIN ALDANA UNIT: [id number] ADM DATE: 05/16/19 AGE: 49 : 66 SEX: M ROOM/BED: D.2113 AUTHOR: KATIE SORIA PHYSICIAN: REFERRING PHYSICIAN: JANINE PHILIPPE MD DATE OF SERVICE: 05/19/19 Discharge Plan Patient Name: AYLIN ALDANA Facility: [facility]:[place] : 1970 Planned Disposition: Home Anticipated Discharge Date: Discharge Date: Expected LOS: Initial Reviewer: [email or web address] Initial Review Date: 05/19/2019 Generated: 05/19/19 10:34 am Patient Name: AYLIN ALDANA Page [id number] at 0935 All edits/amendments must be made on the electronic document DICTATION DATE: 05/19/19933 PROBATE JUDGE: ARTIE 05/19/19933 RPT#: [id number] DC DATE: STATUS: ADM IN [facility] [address] [place] [address] END OF REPORT
--- NOTE | 2019-05-19 09:42 | NUR ---
CLEMENTINE MCFARLANE CALLED ON PT PER DR. NIELSON. NISREEN IN ROOM TO INTUBATE PATIENT. RESPIRATORY THERAPY, CLEMENTINE MCFARLANE TEAM, TAYLOR TRUSS DRIVER HELPER. PT REFUSING INTUBATION, AGREEABLE TO WEARING BIPAP MACHINE NOW. PT IS BAGGED AND MOVED DIRECTLY TO ICU.
--- NOTE | 2019-05-19 09:43 | MORECARE ---
CASE MANAGEMENT DISCHARGE SUMMARY PATIENT: AYLIN ALDANA UNIT: [id number] ADM DATE: 05/16/19 AGE: 49 : 66 SEX: M ROOM/BED: D.2113 AUTHOR: KATIE SORIA PHYSICIAN: REFERRING PHYSICIAN: JANINE PHILIPPE MD DATE OF SERVICE: 05/19/19 Discharge Plan Patient Name: AYLIN ALDANA Facility: [facility]:[place] : 1970 Planned Disposition: Home Anticipated Discharge Date: Discharge Date: Expected LOS: Initial Reviewer: [email or web address] Initial Review Date: 05/19/2019 Generated: 05/19/19 10:43 am DCPIA - Discharge Planning Initial Assessment Updated by [email or web address]: Cortes Pierson on 05/19/19 9:35 am * Is the patient Alert and Oriented? Yes * How many steps to enter\\exit or inside your home? * PCP NEW DOCTOR AT [facility] 3RD FLOOR, MISSED APPOINTMENT YESTERDAY * Pharmacy [facility] ON [facility] * Preadmission Environment Home with Family * ADLs Independent * Equipment Cane * Other Equipment PT REPORTS BIPAP WAS PICKED UP BECAUSE IT WAS "INFESTED WITH BUGS" AND HE CAN'T HAVE ANOTHER BECAUSE IT WILL JUST FILL UP WITH BUGS AND CAUSE INFECTIONS * List name and contact numbers for known caregivers / representatives who currently or will assist patient after discharge: VAL CARROLL, ROOM MATE, BRADY IVERSON MOM - UNKNOWN NUMBER * Verbal permission to speak to the caregivers and representatives has been obtained from the patient. Yes * Community resources currently utilized None * Please name any agencies selected above. NONE * Additional services required to return to the preadmission environment? No * Can the patient safely return to the preadmission environment? Yes * Has this patient been hospitalized within the prior 30 days at any hospital? No Last DP export: 05/19/19 8:35 a Patient Name: AYLIN ALDANA Page [phone] at 0943 All edits/amendments must be made on the electronic document DICTATION DATE: 05/19/19942 COTTON GINNER: ARTIE 05/19/19942 RPT#: [id number] DC DATE: STATUS: ADM IN [facility] [address] [place] [address] END OF REPORT
--- NOTE | 2019-05-19 09:47 | NUR ---
ARRIVAL TO ICU, PT PLACED IN ROOM 2308. RESPIRATORY, DR. NIELSON AND ICU NURSES IN ROOM. BIPAP IS SET UP BY RESPIRATORY THERAPY. PT IS STABLE UPON LEAVING ROOM. PASSED REPORT TO ICU NURSE SHAKIRA.
--- NOTE | 2019-05-19 09:52 | MORECARE ---
CASE MANAGEMENT DISCHARGE SUMMARY PATIENT: AYLIN ALDANA UNIT: [id number] ADM DATE: 05/16/19 AGE: 49 : 66 SEX: M ROOM/BED: D.8883 AUTHOR: ESTELLA,DOC PHYSICIAN: REFERRING PHYSICIAN: JANINE PHILIPPE MD DATE OF SERVICE: 05/19/19 Discharge Plan Patient Name: AYLIN ALDANA Facility: [facility]:[place] : 1970 Planned Disposition: Home Anticipated Discharge Date: Discharge Date: Expected LOS: Initial Reviewer: [email or web address] Initial Review Date: 05/19/2019 Generated: 05/19/19 10:51 am Comments DCP- Discharge Planning Updated by [email or web address]: Cortes Pierson on 05/19/19 8:[address] Patient Name: AYLIN ALDANA Admission Status: ER Accout number: [id number] Admission Date: 05-16-2019 : 1970 Admission Diagnosis:WEAKNESS Attending: JANINE PHILIPPE Current LOS: 3 Anticipated DC Date: Planned Disposition: Home Primary Insurance: [place] Discharge Planning Comments: CM MET WITH PT IN ROOM TO DISCUSS DISCHARGE PLANNING AND NEEDS. PT REPORTS LIVING AT HOME INDEPENDENTLY WITH A ROOMMATE. PT HAS A CANE; PT HAD A BIPAP THAT WAS PICKED UP BECAUSE IT WAS INFESTED WITH BUGS AND HE CAN'T GET ANOTHER ONE BECAUSE IT WILL GET INFESTED AND CAUSE INFECTIONS. PT HAS NO MEDICAL EQUIPMENT PROVIDER PREFERENCE. PT HAS NO OUTSIDE SERVICES ASSISTING IN THE HOME. CM DISCUSSED AVAILABILITY OF HOME HEALTH, REHAB SERVICES AND MEDICAL EQUIPMENT. PT HAS NKNOWN DISCHARGE NEEDS, STATES HE DOES NOT FEEL GOOD. PT STATES IF HE CAN'T MAKE DECISIONS, HE WOULD LIKE EITHER RAY, HIS ROOMMATE, OR RAYS MOTHER, JAMIE, TO MAKE DECISIONS FOR HIM. PT DENIES HAVING OR FAMILY TO ASSIST. PT REPORTS RAY WILL ARRANGE SOMEONE TO PICK HIM UP FOR DISCHARGE HOME. PT HAS DECLINING RESPIRATORY STATUS AT THIS TIME, WILL BE TRANSFERRING TO ICU. PT PLANS TO DISCHARGE HOME WITH ROOMMATE, HAS UNKNOWN DISCHARGE NEEDS AT THIS TIME. Varnish Maker: Cortes Pierson DCPIA - Discharge Planning Initial Assessment Updated by [email or web address]: Cortes Pierson on 05/19/19 9:35 am * Is the patient Alert and Oriented? Yes * How many steps to enter\\exit or inside your home? * PCP NEW DOCTOR AT [facility] 3RD FLOOR, MISSED APPOINTMENT YESTERDAY * Pharmacy [facility] ON [address] * Preadmission Environment Home with Family * ADLs Independent * Equipment Cane * Other Equipment PT REPORTS BIPAP WAS PICKED UP BECAUSE IT WAS "INFESTED WITH BUGS" AND HE CAN'T HAVE ANOTHER BECAUSE IT WILL JUST FILL UP WITH BUGS AND CAUSE INFECTIONS * List name and contact numbers for known caregivers / representatives who currently or will assist patient after discharge: VAL CARROLL, ROOM MATE, BRADY IVERSON MOM - UNKNOWN NUMBER * Verbal permission to speak to the caregivers and representatives has been obtained from the patient. Yes * Community resources currently utilized None * Please name any agencies selected above. NONE * Additional services required to return to the preadmission environment? No * Can the patient safely return to the preadmission environment? Yes * Has this patient been hospitalized within the prior 30 days at any hospital? No Last DP export: 05/19/19 8:43 a Patient Name: AYLIN ALDANA Page [id number] at 0952 All edits/amendments must be made on the electronic document DICTATION DATE: 05/19/19950 LEGAL NURSE CONSULTANT: ARTIE 05/19/19950 RPT#: [id number] DC DATE: STATUS: ADM IN [facility] [address] [place] [address] END OF REPORT
--- NOTE | 2019-05-19 10:15 | NUR ---
RECEIVED REPORT FROM PEGGY ROSENBERG. PT WAS A RAPID RESPONSE ON MED 2. ON BIPAP PER RT SETTINGS. PT HAS HERNIA ON LEFT ABD. SOME BRUISING NOTED TO BACK. PT IN CONTROLLED AFIB. LAB JUST DRAWN. WILL FOLLOW UP.
[2019-05-19 10:35] LABS: ANION GAP 21.5 mmol/L (8-16); CALCIUM 7.1 mg/dL (8.5-10.1); CARBON DIOXIDE 20.5 mmol/L (21.0-32.0); CREATININE - SERUM 4.7 mg/dL (0.6-1.3)
--- NOTE | 2019-05-19 11:20 | NUR ---
POTASSIUM 6. NOTIFIED JUAREZ RENEE. CALCIUMM GLUCONATE, D50, AND 10 UNITS OF REGULAR INSULIN ADMINISTERED. WILL CONTINUE TO MONITOR.
--- NOTE | 2019-05-19 12:20 | NUR ---
CONSULTED VASCULAR ACCESS NURSE FOR IV FOR PRESSORS TO GO THROUGH. LEFT VOICEMAIL.
--- NOTE | 2019-05-19 12:30 | NUR ---
CALCIUM GLUCONATE DONE INFUSING. DOBUTAMINE STARTED PER LOW BP AND HR. 2.5 MCG/KR/MIN. WILL TITRATE PER ORDER.
--- NOTE | 2019-05-19 13:19 | NUR ---
PER DR VARGAS, DOBUTAMINE AT 5 MCG/KG/MIN. ORDERING LEVOPHED AT THIS TIME.
--- NOTE | 2019-05-19 13:20 | NUR ---
DR VARGAS ON UNIT ROUNDING. STATED TO KEEP DOBUTAMINE AT 5MCG/KG/MIN. SAID TO START LEVOPHED. NEW IV SITE TO RIGHT FOREARM. 20 GAUGE.
[2019-05-19 14:23] LABS: ANION GAP 16.5 mmol/L (8-16); CALCIUM 7.1 mg/dL (8.5-10.1); CARBON DIOXIDE 22.6 mmol/L (21.0-32.0); POTASSIUM - SERUM 5.1 mmol/L (3.5-5.1)
--- NOTE | 2019-05-19 14:52 | NUR ---
Nutrition Follow-up: Pt transferred to ICU this AM. Possible dialysis; noted orders for trialysis catheter. No changes per GI. On bipap. Diet: Renal No new wt Last BM: 05/19 Labs noted: Na 133, K+ 6.2, PO4 8.9, Ca 7.1 Meds noted: Lasix, Miralax, Rocephin, Zithromax Continue current diet as tolerated. RD following.
--- NOTE | 2019-05-19 15:20 | NUR ---
ABG TAKEN PER DR NIELSON AND RTLILIAM. SHOWS O2 SATURATION AT 94%. DR NIELSON WANTED TO PUT CENTRAL LINE IN AT THAT TIME. PT STATED HE WANTED HIS FRIEND, VAL, HERE 1ST, STATED VAL HAS HIS POA. DR NIELSON STATED TO HAVE AMBU BAG BEDSIDE AND TO HAVE THE CRASH CART OUTSIDE HIS ROOM.
--- NOTE | 2019-05-19 18:40 | NUR ---
DR SANTOS CAME AND PLACED TRIALYSIS CATH TO RIGHT SUBCLAVIAN. WAITING ON CHEST XRAY RESULTS. PLACED MIRANDA CATHETER. 16 BARBADIAN. 100ML OF CLEAR YELLOW URINE RETURN.
--- NOTE | 2019-05-19 19:00 | NUR ---
PT ASSESSMENT COMPLETED AT THIS TIME. NO CHANGES NOTED FROM REPORT
--- NOTE | 2019-05-19 21:00 | NUR ---
PT GIVEN PO MEDS WITH DIFFCULTY, PT AWAKES TO NAME AND FOLLOWS COMMANDS, PT IS MORE REPSONSIVE AT THIS TIME, WILL CONT. TO MONITOR
[2019-05-20] VITALS (85 sets, daily range): BP systolic 58–123; BP diastolic 20–88
--- NOTE | 2019-05-20 01:46 | NUR ---
2300 PT REASSESSMENT COMPLETED AT THIS TIME, NO CHANGES NOTED 0100 PT RESTING WITH EYES CLOSED, AWAKES TO NAME. NO DISTRESS NOTED, WILL MONITOR FOR CHANGES
--- NOTE | 2019-05-20 02:30 | NUR ---
PT YELLING OUT, WHEN CHECKING ON THE PATIENT, PT STATES THAT HE DOES NOT FEEL RIGHT AND THAT HE NEEDS TO CALL HIS NEIGHBOR, PT'S BIPAP WAS REPLACED AND SEAL READJUSTED, PT SPO2 82-83%, PT ADVISED TO RELAX AND LET THE BIPAP HELP HIM BREATH.
--- NOTE | 2019-05-20 02:36 | NUR ---
DR. NISREEN NAVARRO
--- NOTE | 2019-05-20 02:39 | NUR ---
DR. NIELSON RETURNED PAGE, AND NEW ORDERS GIVEN
--- NOTE | 2019-05-20 02:51 | NUR ---
DR NISREEN NAVARRO FOR ABNORMAL ABG RESULTS
--- NOTE | 2019-05-20 03:00 | NUR ---
dR. Marina RETURNED PAGE AND ORDERED FOR THE PT TO BE INTUBATED
--- NOTE | 2019-05-20 03:25 | NUR ---
ER WAS CALLED FOR CODE BLUE.
--- NOTE | 2019-05-20 03:35 | NUR ---
PT INTUBATED PER DR. REBOLLEDO
--- NOTE | 2019-05-20 04:20 | NUR ---
DR. DUMONT CALLED ABOUT DECREASED HEART RATE AND B/P, NEW ORDERS NOTED
--- NOTE | 2019-05-20 04:35 | NUR ---
DR ORTEGA CALLED BACK ABOUT CRITICAL ABG RESULTS, NO NEW ORDERS NOTED
--- NOTE | 2019-05-20 05:26 | NUR ---
PT SEDATED ON VENT, HR MORE STABLE AT THIS TIME RATE OF 100 BPM, B/P STABLE 115/69. WILL WEAN DOWN LEVOPHED, SPO2 100%
[2019-05-20 07:28] LABS: ANION GAP 20.9 mmol/L (8-16); CARBON DIOXIDE 18.3 mmol/L (21.0-32.0); CREATININE - SERUM 5.4 mg/dL (0.6-1.3); MAGNESIUM - SERUM 1.8 mg/dL (1.8-2.4); POTASSIUM - SERUM 5.2 mmol/L (3.5-5.1)
[2019-05-20 07:29] LABS: PHOSPHOROUS 10.5 mg/dL (2.5-4.9)
[2019-05-20 07:50] LABS: BASOPHILS 0.1 % (0-2); EOSINOPHILS 0.1 % (0-7); HEMATOCRIT 27.4 % (42.0-54.0); HEMOGLOBIN 8.4 g/dL (13.5-17.5); IMMATURE GRANULOCYTES 0.5 % (0-5); LYMPHOCYTES 4.6 % (15-50); MCH 25.1 pg (26.0-34.0); MCHC 30.7 g/dL (31.0-37.0); MONOCYTES 10.6 % (2-11); NEUTROPHILS 84.1 % (40-80); PLATELET COUNT 254 10x3/uL (130-400); RBC 3.34 10x6/uL (4.20-6.10); RDW 20.2 % (11.5-14.5); WBC 10.3 10x3/uL (4.8-10.8)
--- NOTE | 2019-05-20 11:42 | OP ---
PATIENT NAME: AYLIN ALDANA MEDICAL RECORD: [id number] :[birth year] LOCATION:[facility] D.2308 ADMISSION DATE:05/16/19 SURGEON: RAYMOND SANTOS MD DATE OF OPERATION: 05/19/2019 PREOPERATIVE DIAGNOSIS: Chronic kidney disease, which has progressed to end-stage renal disease requiring hemodialysis urgently. POSTOPERATIVE DIAGNOSES: Chronic kidney disease, which has progressed to end-stage renal disease requiring hemodialysis urgently. PROCEDURE: Insertion of right neck Trialysis catheter (non-tunneled, non-cuffed hemodialysis catheter). SURGEON: Raymond Santos MD MICROMATIC HONE OPERATOR: None. BLOOD LOSS: Minimal. ANESTHESIA: Local. COMPLICATIONS: None. The risks, possible complications, and alternatives to the procedure were explained. A consent form was signed. OPERATIVE COURSE: The patient was positioned supine. The bed would not go into the Trendelenburg position. The right neck and right upper chest were sterilely prepped and draped. A local anesthetic was used to infiltrate the skin and subcutaneous tissues at the base of the right neck. I tried to percutaneously access the right internal jugular vein, but I was unable to do so likely due to the fact that the bed would not go into the Trendelenburg position. I then percutaneously accessed the right subclavian vein utilizing a supraclavicular approach. The guidewire was passed easily. A small skin miladis was accomplished. A vessel dilator was used to dilate a subcutaneous tract. A short Trialysis catheter was inserted to the hub. It was sutured in place times 3. All lumens flushed easily and aspirated dark, nonpulsatile blood. A stat portable chest x-ray revealed infiltrates as well as probably pulmonary edema. There was some question about whether there was intra-arterial placement of the Trialysis catheter and I can assure you that this was not the case. The radiographic evidence of the Trialysis catheter is somewhat unusual in that it is not placed in the internal jugular vein, but instead in the subclavian vein. The Trialysis catheter is okay to use and I notified the nursing staff that it was in good position. TRANSINT:[id number] Voice Confirmation ID: [id number] DOCUMENT ID: [id number] OPERATIVE REPORT [id number] AYLIN ALDANA RAYMOND SANTOS MD at 1144 CC: [id number] DICTATION DATE: 05/20/19 1102 FUEL OIL TRUCK DRIVER: 05/20/19 1133 ADM IN [address] [facility]
--- NOTE | 2019-05-20 13:26 | NUR ---
ATTEMPTED TO CALL FAMILY X 2 ATTEMPTS FIRST AT 6855 AND SECOND ATTEMPT AT THIS
--- NOTE | 2019-05-20 17:42 | NUR ---
0730: OPENS EYES TO VERBAL STIMULI. WITHDRAWS TO TACTILE STIMULI. SEE FLOWSHEET FOR COMPLETE ASSESSMENT. 0800: LEVOPHED DECREASED TO 24MCG/MIN. 0915: LEVOPHED DECREASED TO 22 MCG/MIN. 1010: DR. NIELSON HERE AT BEDSIDE. 1015: DOPAMINE DECREASED TO 2.5MCG/KG/MIN PER VERBAL ORDER FROM DR. NIELSON VENT CHANGES MADE BY DR. NIELSON. TV DECREASED TO 450. PEEP INCREASED TO 12. 1030: PEEP DECREASED TO 8. LEVOPHED INCREASED BACK TO 24 MCG/MIN. 1100: ASSESSMENT DOCUMENTED IN FLOWSHEET. SPO2 IN [address]S. DR. NIELSON AWARE. 1200: LEVOPHED INCREASED TO 30MCG/MIN. EPI GTT STARTED @ 1MCG/MIN. 1245: EPI INCREASED TO 5MCG/MIN. 1307: CODE BLUE CALLED. SEE CODE BLUE SHEET. 1328: CODE BLUE CALLED SEE CODE BLUE SHEET. 1330: DOPAMINE INCREASED TO 20 MCG/KG/MIN PER VERBAL ORDER DR. PHILIPPE.
--- NOTE | 2019-05-20 18:34 | NUR ---
1530: DOPAMINE DECREASED TO 10MCG/KG/MIN. 1630: CODE BLUE CALLED. SEE CODE BLUE SHEET. 1714: CODE BLUE CALLED. SEE CODE BLUE SHEET. CALCIUM, D50, AND INSULIN GIVEN. BICARB GTT STARTED AT 50CC/HR PER ORDER FROM DR. FUNK. 1740: ABG RESULTS PHONED TO DR. NIELSON. BICARB GTT INCREASED TO 100CC/HR. 1755: CODE BLUE CALLED. 1810: PRONOUNCED BY DR. FUNK.
--- NOTE | 2019-05-20 19:08 | NUR ---
1845: BODY PREPARED FOR HOME.
--- NOTE | 2019-05-20 19:53 | NUR ---
Pt . Nurses before shift change were unable to reach emergency contact. geoff Montague attempting to contact at this time.
--- NOTE | 2019-05-20 19:54 | NUR ---
DR NIELSON NOTIFIED OF PT PASSING
--- NOTE | 2019-05-20 20:04 | NUR ---
DR. SANTOS CALLED AND UPDATED ON PATIENTS PASSING
--- NOTE | 2019-05-20 20:08 | NUR ---
DR. HARRY CALLED AND UPDATED ON PATIENTS PASSING
--- NOTE | 2019-05-20 20:24 | NUR ---
DR HENDRIX CALLED AND UPDATED ON THE PATIENTS PASSING
--- NOTE | 2019-05-20 20:40 | NUR ---
[facility] CALLED WITH THE ACTIVE DIRECTORY SPECIALIST'S OFFCICE DUE TO NOT BEING ABLE TO GET IN TOUCH WITH THE PATIENTS LISTED NEXT OF KIN. hE ADVISED THAT HE WOULD COME GAS WORKER THE BODY AND TAKE IT TO THE ACTIVE DIRECTORY SPECIALIST'S OFFICE, AND TO NOTIFIY HIM IF THE PATIENTS NEXT OF KIN CONTACTS THE HOSPITAL
--- NOTE | 2019-05-20 21:00 | NUR ---
PT APPEARS UNCOMFORTABLE. NON VERBAL. RESTLESS IN APPEARANCE. WILL GIVE PRN MORPHINE PER ORDER
--- NOTE | 2019-05-20 21:45 | NUR ---
TATE WEST PICKED UP PT AND BELONGINGS FOR ENGROSSER.
--- NOTE | 2019-05-22 08:39 | MORECARE ---
CASE MANAGEMENT DISCHARGE SUMMARY PATIENT: AYLIN ALDANA UNIT: [id number] ADM DATE: 05/16/19 AGE: 49 : 66 SEX: M ROOM/BED: D.2308 AUTHOR: ESTELLA,DOC PHYSICIAN: REFERRING PHYSICIAN: JANINE PHILIPPE MD DATE OF SERVICE: 05/22/19 Discharge Plan Patient Name: AYLIN ALDANA Facility: [facility]:[place] : 1970 Planned Disposition: Home Anticipated Discharge Date: Discharge Date: 05/20/2019 Expected LOS: Initial Reviewer: [email or web address] Initial Review Date: 05/19/2019 Generated: 05/22/19 9:38 am DCP- Discharge Planning Updated by [email or web address]: Cortes Pierson on 05/19/19 8:[address] Patient Name: AYLIN ALDANA Admission Status: ER Accout number: [id number] Admission Date: 05-16-2019 : 1970 Admission Diagnosis:WEAKNESS Attending: JANINE PHILIPPE Current LOS: 3 Anticipated DC Date: Planned Disposition: Home Primary Insurance: [place]ID [place] Discharge Planning Comments: CM MET WITH PT IN ROOM TO DISCUSS DISCHARGE PLANNING AND NEEDS. PT REPORTS LIVING AT HOME INDEPENDENTLY WITH A ROOMMATE. PT HAS A CANE; PT HAD A BIPAP THAT WAS PICKED UP BECAUSE IT WAS INFESTED WITH BUGS AND HE CAN'T GET ANOTHER ONE BECAUSE IT WILL GET INFESTED AND CAUSE INFECTIONS. PT HAS NO MEDICAL EQUIPMENT PROVIDER PREFERENCE. PT HAS NO OUTSIDE SERVICES ASSISTING IN THE HOME. CM DISCUSSED AVAILABILITY OF HOME HEALTH, REHAB SERVICES AND MEDICAL EQUIPMENT. PT HAS NKNOWN DISCHARGE NEEDS, STATES HE DOES NOT FEEL GOOD. PT STATES IF HE CAN'T MAKE DECISIONS, HE WOULD LIKE EITHER RAY, HIS ROOMMATE, OR RAYS MOTHER, JAMIE, TO MAKE DECISIONS FOR HIM. PT DENIES HAVING OR FAMILY TO ASSIST. PT REPORTS RAY WILL ARRANGE SOMEONE TO PICK HIM UP FOR DISCHARGE HOME. PT HAS DECLINING RESPIRATORY STATUS AT THIS TIME, WILL BE TRANSFERRING TO ICU. PT PLANS TO DISCHARGE HOME WITH ROOMMATE, HAS UNKNOWN DISCHARGE NEEDS AT THIS TIME. Trailer Chief: Cortes Pierson DCPIA - Discharge Planning Initial Assessment Updated by [email or web address]: Cortes Pierson on 05/19/19 9:35 am * Is the patient Alert and Oriented? Yes * How many steps to enter\\exit or inside your home? * PCP NEW DOCTOR AT [facility] 3RD FLOOR, MISSED APPOINTMENT YESTERDAY * Pharmacy [facility] [address] * Preadmission Environment Home with Family * ADLs Independent * Equipment Cane * Other Equipment PT REPORTS BIPAP WAS PICKED UP BECAUSE IT WAS "INFESTED WITH BUGS" AND HE CAN'T HAVE ANOTHER BECAUSE IT WILL JUST FILL UP WITH BUGS AND CAUSE INFECTIONS * List name and contact numbers for known caregivers / representatives who currently or will assist patient after discharge: VAL CARROLL, ROOM MATE, BRADY IVERSON MOM - UNKNOWN NUMBER * Verbal permission to speak to the caregivers and representatives has been obtained from the patient. Yes * Community resources currently utilized None * Please name any agencies selected above. NONE * Additional services required to return to the preadmission environment? No * Can the patient safely return to the preadmission environment? Yes * Has this patient been hospitalized within the prior 30 days at any hospital? No Last DP export: 05/19/19 8:52 a Patient Name: AYLIN ALDANA Page [id number] at 0839 All edits/amendments must be made on the electronic document DICTATION DATE: 05/22/19837 MAGNETIC TAPE COMPOSER OPERATOR: ARTIE 05/22/19837 RPT#: [id number] DC DATE:05/20/19 STATUS: DIS IN [facility] [address] [place] [address] END OF REPORT
--- NOTE | 2019-05-22 12:12 | NUR ---
Per CMS protocol, restraint report logged into base.
--- NOTE | 2019-05-23 02:15 | NUR ---
LATE ENTRY, PT TRANSPORTED TO FLOOR WITH IV ROCEPHIN RUNNING. STOP TIME TO BE AFTER PT IN FLOOR ROOM ON 05/17/19
== END 2019-05-20 18:10 | DRG 291 ==
LOC: D.ER 21:46 → D.ICU 23:07 → D.M2 23:07 → D.ICU 05-19 09:47
PROVIDERS: Family Medicine; Internal Medicine Nephrology; ADMIT Internal Medicine Nephrology; ATTEND Internal Medicine Nephrology
PROC: 05HM33Z Insertion of Infusion Device into Right Internal Jugular Vein, Percutaneous Approach (ICD-10-PCS; principal; 2019-05-19)
PROC: 5A09357 Assistance with Respiratory Ventilation, Less than 24 Consecutive Hours, Continuous Positive Airway Pressure (ICD-10-PCS; 2019-05-19)
PROC: 0BH17EZ Insertion of Endotracheal Airway into Trachea, Via Natural or Artificial Opening (ICD-10-PCS; 2019-05-20)
PROC: 5A1935Z Respiratory Ventilation, Less than 24 Consecutive Hours (ICD-10-PCS; 2019-05-20)
PROC: 5A12012 Performance of Cardiac Output, Single, Manual (ICD-10-PCS; 2019-05-20)
PROC: 5A12012 Performance of Cardiac Output, Single, Manual (ICD-10-PCS; 2019-05-20)
DX: I13.2 Hypertensive heart and chronic kidney disease with heart failure and with stage 5 chronic kidney disease, or end stage renal disease (principal); I50.23 Acute on chronic systolic (congestive) heart failure; N18.6 End stage renal disease; J96.21 Acute and chronic respiratory failure with hypoxia; G93.41 Metabolic encephalopathy; N17.9 Acute kidney failure, unspecified; G93.1 Anoxic brain damage, not elsewhere classified; E11.22 Type 2 diabetes mellitus with diabetic chronic kidney disease; D50.9 Iron deficiency anemia, unspecified; R91.1 Solitary pulmonary nodule; I48.2 Chronic atrial fibrillation; J44.9 Chronic obstructive pulmonary disease, unspecified; K74.60 Unspecified cirrhosis of liver; K76.81 Hepatopulmonary syndrome; E87.5 Hyperkalemia; E66.01 Morbid (severe) obesity due to excess calories; Z68.34 Body mass index [BMI] 34.0-34.9, adult; I95.9 Hypotension, unspecified; Z86.73 Personal history of transient ischemic attack (TIA), and cerebral infarction without residual deficits